=== PATIENT | female | born 1965 | race Caucasian/White ===

== ENCOUNTER 2021-06-02 09:49 | Outpatient (REF) | payer OTHER, SELFPAY ==
[2021-06-02 13:53] LABS: MANUAL DIFF FLAG NO
[2021-06-02 13:59] LABS: Basophils Absolute Auto 0.1 X10*3/uL (0.0-0.2); Basophils Percent Auto 0.9 % (0-2); Eosinophils Absolute Auto 0.2 X10*3/uL (0.0-0.4); Eosinophils Percent Auto 3.2 % (0-4); Hematocrit 46.5 % (37.0-47.0); Hemoglobin 14.8 g/dl (12.0-16.0); Imm Gran Abs Auto 0.03 X10*3/uL (0.00-0.03); Imm Gran Pct Auto 0.4 % (0.0-0.4); Lymphocytes Absolute Auto 2.2 X10*3/uL (1.2-4.9); Lymphocytes Percent Auto 29.3 % (20-40); Mean Corpuscular HGB Conc 31.8 g/dl (31.0-35.0); Mean Corpuscular Hemoglobin 28.4 pg (27.0-33.0); Mean Corpuscular Volume 89.1 fL (80.0-98.0); Mean Platelet Volume 9.7 fL (9.4-12.3); Monocytes Absolute Auto 0.5 X10*3/uL (0.1-1.2); Monocytes Percent Auto 7.2 % (2-11); Neutrophils Absolute Auto 4.4 x10*3/uL (2.0-8.3); Platelet Count 321 X10*3/uL (160-400); Red Blood Count 5.22 X10*6/uL (4.20-5.50); Red Cell Distribution Width 13.1 % (11.0-16.0); White Blood Count 7.5 X10*3/uL (4.8-10.8)
[2021-06-02 14:02] LABS: Appearance Urine HAZY; Color Urine YELLOW; Glucose Urine UA NEG (NEG); Leukocyte Esterase Urine 1+ (NEG); Nitrite Urine NEG (NEG); PH 5.5 (5.0-8.0); Specific Gravity - Urine >= 1.030 (1.005-1.025); UACC Culture Trigger YES; Urine Blood 1+ (NEG); Urine Ketones 5 MG/DL (NEG); Urine Protein NEG (NEG-TRACE)
[2021-06-02 14:25] LABS: Alanine Aminotransferase 73 U/L (0-31); Albumin Level 4.4 g/dL (3.5-5.0); Alkaline Phosphatase 74 U/L (39-117); Anion Gap 13 (12-20); Aspartate Amino Transferase 67 U/L (5-31); Bilirubin Total 0.7 mg/dL (0.0-1.0); Blood Urea Nitrogen 13 mg/dL (9-16); Calcium 9.7 mg/dL (8.4-10.2); Carbon Dioxide 27 mmol/L (22-29); Chloride 105 mmol/L (96-108); Cholesterol 232 mg/dL; Estimated Glomerular Filt Rate > 60; Glucose Fasting 88 mg/dL (60-99); HDL Cholesterol 44 mg/dL; LDL Cholesterol Calculated 162 mg/dl; Potassium 4.9 mmol/L (3.3-5.1); Sodium 140 mmol/L (135-145); Total Protein 7.7 g/dL (6.5-8.0); Triglycerides 133 mg/dL
[2021-06-02 14:27] LABS: Bacteria Urine 1+ /LPF; Squamous Epithelial Cell Urine 1+ /LPF
[2021-06-02 14:47] LABS: Free T4 (Free Thyroxine) 0.71 ng/dL (0.71-1.85); Thyroid Stimulating Hormone 22.17 uIU/mL (0.32-4.0); Vitamin D 25-OH Total 11.8 ng/mL (>30)
== END 2021-06-02 09:50 | disposition home or self-care (01) ==
LOC: HO.10HDL 09:49
PROVIDERS: Visit Provider Internal Medicine
DX: I10 Essential (primary) hypertension (principal); E78.00 Pure hypercholesterolemia, unspecified; E03.9 Hypothyroidism, unspecified; E55.9 Vitamin D deficiency, unspecified
CPT/HCPCS: 36415; 80053; 80061; 81001; 81003; 82306; 84439; 84443; 85025; 87086

== ENCOUNTER 2021-07-14 14:20 | Outpatient (REF) | payer OTHER, SELFPAY ==
--- NOTE | ~2021-07-14 | US_ITS ---
EXAMINATION: US VENOUS ULTRASOUND WITH DOPPLER LOWER EXTREMITY, RIGHT CLINICAL INFORMATION: Right leg pain COMPARISON: None TECHNIQUE: Ultrasound of the deep veins is performed from the hip to the calf with compression sonography and color and pulse Doppler assessment. Spectral analysis with color-flow imaging is performed. FINDINGS: There is normal venous compression and respiratory variation and augmented flow. The visualized common femoral vein, superficial femoral vein, profunda femoral vein, popliteal vein, and the trifurcation region shows no evidence of deep venous thrombosis. There is no significant popliteal fossa cyst. No popliteal artery aneurysm. US/US venous duplex LE RT IMPRESSION: No acute DVT demonstrated in the right lower extremity.
== END 2021-07-14 14:21 | disposition home or self-care (01) ==
LOC: HO.US 14:20
PROVIDERS: PCP Internal Medicine; Visit Provider Nurse Practitioner Family
DX: M79.604 Pain in right leg (principal); M25.561 Pain in right knee
CPT/HCPCS: 93971

== ENCOUNTER 2021-09-18 07:32 | Outpatient (REF) | payer OTHER, SELFPAY ==
[2021-09-18 10:30] LABS: MANUAL DIFF FLAG NO
[2021-09-18 10:32] LABS: Basophils Absolute Auto 0.1 X10*3/uL (0.0-0.2); Basophils Percent Auto 0.9 % (0-2); Eosinophils Absolute Auto 0.4 X10*3/uL (0.0-0.4); Eosinophils Percent Auto 4.1 % (0-4); Hematocrit 43.4 % (37.0-47.0); Hemoglobin 14.3 g/dl (12.0-16.0); Imm Gran Abs Auto 0.03 X10*3/uL (0.00-0.03); Imm Gran Pct Auto 0.3 % (0.0-0.4); Lymphocytes Percent Auto 34.5 % (20-40); Mean Corpuscular HGB Conc 32.9 g/dl (31.0-35.0); Mean Corpuscular Hemoglobin 28.8 pg (27.0-33.0); Mean Corpuscular Volume 87.3 fL (80.0-98.0); Mean Platelet Volume 9.8 fL (9.4-12.3); Monocytes Absolute Auto 0.6 X10*3/uL (0.1-1.2); Monocytes Percent Auto 7.1 % (2-11); Neutrophils Absolute Auto 4.6 x10*3/uL (2.0-8.3); Neutrophils Percent Auto 53.1 % (45-73); Platelet Count 310 X10*3/uL (160-400); Red Blood Count 4.97 X10*6/uL (4.20-5.50); Red Cell Distribution Width 12.4 % (11.0-16.0); White Blood Count 8.7 X10*3/uL (4.8-10.8)
[2021-09-18 10:38] LABS: Appearance Urine HAZY; Color Urine YELLOW; Glucose Urine UA NEG (NEG); Leukocyte Esterase Urine 2+ (NEG); Nitrite Urine NEG (NEG); PH 5.5 (5.0-8.0); UACC Culture Trigger YES; Urine Blood TRACE (NEG); Urine Ketones NEG (NEG); Urine Protein NEG (NEG-TRACE)
[2021-09-18 10:44] LABS: Estimated Average Glucose 123 mg/dL; Hemoglobin A1C 150.8236 umol/L; Hemoglobin A1c % 5.9 %
[2021-09-18 10:53] LABS: Alanine Aminotransferase 37 U/L (0-31); Albumin Level 4.1 g/dL (3.5-5.0); Alkaline Phosphatase 74 U/L (39-117); Anion Gap 12 (12-20); Aspartate Amino Transferase 34 U/L (5-31); Bilirubin Total 0.5 mg/dL (0.0-1.0); Blood Urea Nitrogen 8 mg/dL (9-16); Calcium 9.7 mg/dL (8.4-10.2); Carbon Dioxide 28 mmol/L (22-29); Chloride 104 mmol/L (96-108); Cholesterol 237 mg/dL; Estimated Glomerular Filt Rate > 60; Glucose Fasting 93 mg/dL (60-99); HDL Cholesterol 42 mg/dL; LDL Cholesterol Calculated 168 mg/dl; Potassium 4.7 mmol/L (3.3-5.1); Sodium 139 mmol/L (135-145); Total Protein 7.2 g/dL (6.5-8.0); Triglycerides 136 mg/dL
[2021-09-18 11:03] LABS: Thyroid Stimulating Hormone 0.06 uIU/mL (0.32-4.0)
[2021-09-18 11:06] LABS: WBC Urine 30-49 /HPF (0-4)
[2021-09-18 11:07] LABS: Bacteria Urine 1+ /LPF; Squamous Epithelial Cell Urine 1+ /LPF
[2021-09-18 11:09] LABS: Renal Epithelial Cells Urine TRACE /LPF
== END 2021-09-18 07:33 | disposition home or self-care (01) ==
LOC: HO.10HDL 07:32
PROVIDERS: Visit Provider Internal Medicine
DX: E11.9 Type 2 diabetes mellitus without complications (principal); E55.9 Vitamin D deficiency, unspecified; I10 Essential (primary) hypertension; E03.9 Hypothyroidism, unspecified; E78.00 Pure hypercholesterolemia, unspecified
CPT/HCPCS: 36415; 80053; 80061; 81001; 82306; 83036; 84443; 85025; 87086

== ENCOUNTER 2022-02-08 08:22 | Outpatient (REF) | payer OTHER, SELFPAY ==
--- NOTE | ~2022-02-08 | MM_ITS ---
EXAMINATION: MM SCREENING DIGITAL BREAST TOMOSYNTHESIS, BILATERAL CLINICAL INFORMATION: Screening. Asymptomatic. The lifetime risk of breast cancer based on the Tyrer-Cuzick Model is 10%. COMPARISON: Mammography: 03/22/2017, 07/25/2011 TECHNIQUE: Digital breast tomosynthesis is performed in both the craniocaudal and mediolateral oblique views along with computer-aided detection (CAD). Synthesized 2D images are generated from the tomosynthesis. FINDINGS: The breasts are heterogeneously dense, which may obscure small masses (ACR BI-RADS breast composition Category c). Right breast parenchymal pattern is similar to prior studies. No architectural abnormality or mass or abnormal calcifications. The bilateral axilla and skin contours are unremarkable. Left breast has oval asymmetric density mid inner quadrant on CC view mid depth on tomography. No MLO correlate. No architectural abnormality. Left breast also has 2 new groups of probable benign calcifications, one mid 3:00 with circumferential arrangement and the other central 6:00 mid depth tightly grouped and likely coarse. Other calcifications scattered central outer left breast are stable. Patient will be recalled for additional imaging on the left. MM/MM tomosynthesis screening BI IMPRESSION: Left: -Oval asymmetric density mid inner quadrant. -2 groups of probable benign calcifications mid 3:00 and central mid 6:00. Right: -No mammographic evidence of malignancy. ASSESSMENT: BI-RADS 0: Incomplete - Need Additional Imaging Evaluation RECOMMENDATION: 1. Additional views of the left breast (3D spot CC; Mag CC; Mag ML). 2. Targeted ultrasound if warranted after review of the additional views. 3. Radiology department staff will contact the patient for additional imaging. This patient's information was entered into a reminder system with a target due date for their next mammogram.
== END 2022-02-08 08:23 | disposition home or self-care (01) ==
LOC: HO.MAMMO 08:22
PROVIDERS: PCP Internal Medicine; Visit Provider Internal Medicine
DX: Z12.31 Encounter for screening mammogram for malignant neoplasm of breast (principal)
CPT/HCPCS: 77063; 77067

== ENCOUNTER 2022-02-13 08:13 | Outpatient (REF) | payer SELFPAY ==
--- NOTE | ~2022-02-13 | MM_ITS ---
EXAMINATION: MM DIAGNOSTIC DIGITAL BREAST TOMOSYNTHESIS, LEFT US DIAGNOSTIC ULTRASOUND BREAST, LEFT CLINICAL INFORMATION: Recall from screening for new groups of calcifications left breast 3:00 and 6:00 and question of oval asymmetric density medial breast on one view. TC score 10%. COMPARISON: Mammography: 02/08/2022, 03/22/2017, 07/25/2011, 06/06/2009 TECHNIQUE: Digital breast tomosynthesis is performed. 2D images are generated from the tomosynthesis. The following views are obtained: Spot CC, magnification CC x2, magnification ML x3. Ultrasound left breast is targeted to the inner quadrants. Grayscale imaging and color Doppler are performed without and with harmonics. FINDINGS: The breasts are heterogeneously dense, which may obscure small masses (ACR BI-RADS breast composition Category c). Finding calcifications: Additional magnification views left breast demonstrate grouped heterogeneous calcifications mid 4:00 position over 10 in number which vary in size and shape. These are new from prior studies and stereotactic sampling is recommended. There are additional calcifications 1.8 cm more posterior to the site which appear increased from prior exam and loosely grouped. Tissue sampling of this area is also suggested. Other calcifications retroareolar and anterior 6:00 position are very tightly grouped very fine and appear benign. These may be followed with mammography in 6 months. Finding asymmetry: Additional spot view shows oval asymmetry mid medial breast with mixed fibroglandular and fatty attenuation. In retrospect, this area appears similar to remote left CC views dating back to 2009. Ultrasound medial left breast shows no cystic or solid mass or architectural abnormality. Management: Results are discussed with the patient at time of visit. Patient is in agreement for stereotactic sampling left breast calcifications mid lower outer quadrant, 2 sites. MM/MM tomosynthesis added views L IMPRESSION: -Calcifications mid lower outer left breast, 2 sites for tissue sampling under stereotactic guidance. -Calcifications retroareolar and anterior 6:00 left breast appear probably benign. -Fibroglandular densities medial left breast similar to prior studies. ASSESSMENT: BI-RADS 4: Suspicious RECOMMENDATION: -Stereotactic sampling mid outer left breast, 2 sites. -Probable benign calcifications retroareolar and anterior 6:00 may be reassessed in 6 months. This patient's information was entered into a reminder system with a target due date for their next mammogram.
== END 2022-02-13 08:14 | disposition home or self-care (01) ==
LOC: HO.MAMMO 08:13
PROVIDERS: PCP Internal Medicine; Visit Provider Internal Medicine
DX: R92.1 Mammographic calcification found on diagnostic imaging of breast (principal); N64.89 Other specified disorders of breast
CPT/HCPCS: 76642; 77061; 77065

== ENCOUNTER 2022-02-15 07:21 | Outpatient (REF) | payer OTHER, SELFPAY ==
--- NOTE | ~2022-02-15 | MM_ITS ---
EXAMINATION: STEREOTACTIC TOMOSYNTHESIS-GUIDED VACUUM-ASSISTED BREAST BIOPSY (TWO SITES), LEFT SPECIMEN RADIOGRAPHS (TWO SPECIMENS), LEFT POST PROCEDURE DIGITAL MAMMOGRAM, LEFT CLINICAL INFORMATION: Grouped heterogeneous calcifications mid lower outer left breast for tissue sampling. Additional faint calcifications different appearance slightly more posterior for additional sampling. Other calcifications left breast, probably benign for routine 6-month follow-up. COMPARISON: Mammography 02/08/2022, 02/13/2022. TECHNIQUE/PROCEDURE: Informed consent was obtained from the patient after discussion of the benefits, risks, and alternatives to biopsy today. Patient appeared to understand. Gave opportunity for questions. Patient signed consent form. Specimen A: BIOPSY TABLE: Hologic [employer] Prone Biopsy System. LESION: Grouped heterogeneous calcifications mid lower outer quadrant. LOCAL ANESTHESIA: 10 mL 1% lidocaine; 10 mL 2% lidocaine with epinephrine. DERMATOTOMY: Single skin lyssa dermatotomy performed. NEEDLE: Suros Eviva 9-gauge vacuum assisted core biopsy device. APPROACH: Caudal cranial. TARGETING: Combination of digital breast tomosynthesis and stereotactic digital mammography used for targeting. CORES: 8. CLIP: [employer] SecurMark T-shaped marker. SPECIMEN RADIOGRAPH (A): Specimen radiograph is taken in separate room using digital mammography. The index calcifications are in the excised cores. There are over 20 calcifications in the cores. Specimen B: Fresh biopsy supplies are used for 2nd biopsy site. BIOPSY TABLE: Hologic Affirm Prone Biopsy System. LESION: Faint calcifications mid lower outer quadrant. LOCAL ANESTHESIA: 10 mL 1% lidocaine; 16 mL 2% lidocaine with epinephrine. DERMATOTOMY: Single skin lyssa dermatotomy performed. NEEDLE: Suros Eviva 9-gauge vacuum assisted core biopsy device. APPROACH: Caudal cranial. TARGETING: Stereotactic digital mammography used for targeting. CORES: 14. CLIP: Suros SecurMark Cylinder-shaped marker. SPECIMEN RADIOGRAPH (B): Specimen radiograph in 2 views is taken in separate room using digital mammography. There are questionably a few scant faint calcifications with narrow window. No clearly discerned calcifications. POST PROCEDURE UNILATERAL DIGITAL MAMMOGRAM, LEFT: The post biopsy mammogram is performed in separate room using separate digital mammography equipment from the biopsy procedure. CC and ML views are obtained. The breasts are heterogeneously dense, which may obscure small masses (breast composition category: c). Both clip markers are in expected position. The calcifications are markedly decreased at both biopsy sites. No gross hematoma. The patient tolerated the procedure well. No immediate complications. Home instructions reviewed with the patient. Final pathology results are pending. MM/MM stereotactic biopsy ea add IMPRESSION: 1. Digital tomosynthesis-guided core biopsy left breast 2 sites, each with clip placements. 2. Specimen radiograph taken and post procedure mammogram. There is satisfactory positioning of the biopsy clips. 3. Final pathology results pending. An addendum report will be issued.
[2022-02-15] MEDS: Lidocaine HCl 1 % 20 ML VIAL 28 ML SUBCUT (10:04)
[2022-02-15] MEDS: Sodium Bicarbonate 8.4% 50 MEQ/50 ML VIAL SUBCUT (10:05)
== END 2022-02-15 07:22 | disposition home or self-care (01) ==
LOC: HO.MAMMO 07:21
PROVIDERS: PCP Internal Medicine; Visit Provider Surgery
DX: R92.8 Other abnormal and inconclusive findings on diagnostic imaging of breast (principal)
CPT/HCPCS: 19081; 19082; 88305; 88341; 88342; 88360; A4648

== ENCOUNTER 2022-02-23 07:30 | Outpatient (REF) | payer OTHER, SELFPAY ==
--- NOTE | ~2022-02-23 | MM_ITS ---
EXAMINATION: STEREOTACTIC TOMOSYNTHESIS-GUIDED VACUUM-ASSISTED BREAST BIOPSY, LEFT SPECIMEN RADIOGRAPH, LEFT POST PROCEDURE DIGITAL MAMMOGRAM, LEFT CLINICAL INFORMATION: Biopsy of the third grouping of calcifications left breast positive intraductal carcinoma in situ within 2 other locations recently biopsied on 02/15/2022. COMPARISON: 02/15/2022 and studies dating back to 07/25/2011. TECHNIQUE/PROCEDURE: Informed consent was obtained from the patient after discussion of the benefits, risks, and alternatives to biopsy today. Patient appeared to understand. Gave opportunity for questions. Patient signed consent form. BIOPSY TABLE: [employer] Prone Biopsy System. LESION: Calcifications inferior aspect of the left breast . LOCAL ANESTHESIA: 8 mL 1% lidocaine; 20 mL 1% lidocaine with epinephrine. DERMATOTOMY: Single skin lyssa dermatotomy performed. NEEDLE: Xiaomiiva 9-gauge vacuum assisted core biopsy device. APPROACH: caudal cranial. TARGETIN-D cici. CORES: 13. CLIP: Moki - formerly [employer] SecurMark Cylinder-shaped marker. SPECIMEN RADIOGRAPH: Specimen radiograph is taken in separate room using digital mammography. The index calcifications are in the excised cores. POST PROCEDURE UNILATERAL DIGITAL MAMMOGRAM: The post biopsy mammogram is performed in separate room using separate digital mammography equipment from the biopsy procedure. 2 views are obtained. The breasts are heterogeneously dense, which may obscure small masses (breast composition category: c). The clip marker is in position. There is another cylinder marking clip present from previous biopsy about the lateral aspect of the left breast with cylinder clip from today's study being more inferior in position at approximately 6 o'clock. The calcifications are markedly decreased at the biopsy site. No gross hematoma. The patient tolerated the procedure well. No immediate complications. Home instructions reviewed with the patient. Final pathology results are pending. MM/MM stereotactic biopsy LT IMPRESSION: 1. Digital tomosynthesis-guided core biopsy left breast with clip placement. 2. Specimen radiograph taken and post procedure mammogram. There is satisfactory positioning of the biopsy clip. 3. Final pathology results pending. An addendum report will be issued.
[2022-02-23] MEDS: Lidocaine HCl 1 % 20 ML VIAL 10 ML SUBCUT (08:57)
[2022-02-23] MEDS: Sodium Bicarbonate 8.4% 50 MEQ/50 ML VIAL SUBCUT (08:58)
== END 2022-02-23 07:31 | disposition home or self-care (01) ==
LOC: HO.MAMMO 07:30
PROVIDERS: PCP Internal Medicine; Visit Provider Surgery
DX: D05.12 Intraductal carcinoma in situ of left breast (principal)
CPT/HCPCS: 19081; 88305; A4648

== ENCOUNTER 2022-03-14 06:15 | Day surgery (SDC) | payer OTHER, SELFPAY ==
[2022-03-08 15:04] VITALS: BMI 38.9
--- NOTE | 2022-03-13 09:04 | HO.ANESPROP2 ---
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) Impaired fasting glucose (Acute) Vitamin D deficiency (Acute) Obesity (BMI 30-39.9) (Acute) Elevated LFTs (Acute) Pure hypercholesterolemia (Acute) Acquired hypothyroidism (Acute) Past Medical History Medical History Acquired hypothyroidism Elevated LFTs Impaired fasting glucose Obesity (BMI 30-39.9) Pure hypercholesterolemia Vitamin D deficiency Family History Family History Father Heart disease Hypertension Hyperlipidemia Mother Hyperlipidemia Hypothyroidism Diabetes Son Down's syndrome Maternal Aunt Leukemia Maternal Aunt Brain tumor Maternal Uncle Jaw cancer Lung cancer Maternal Aunt Lung cancer Maternal Grandfather Brain cancer Surgical History Surgical History H/O colonoscopy History of incisional hernia repair History of laparoscopic appendectomy History of laparoscopic cholecystectomy (~05/18/19) Social History Social History Housing: House Alcohol intake: current Alcohol intake frequency: does not drink Patient Tobacco Use Status: Never used Tobacco e-Cigarette/Vaping Use: Never Used Second Hand Smoke Exposure: Yes service: No Current occupational status: unemployed Cognitive needs: No Hearing needs: No Vision needs: No Meds Allergies Allergy/AdvReac Type Severity Reaction Status Date / Time No Known Drug Allergies Allergy Unknown Unknown Verified 03/22/22 09:05 Exam Exam Date and Time: March 13, 2022 0904 Height,Weight and Vital Signs: Height 5 ft 1 in Weight 93.44 kg Pertinent Lab Results Pertinent Lab Results: Laboratory Tests 09/18/21 09/18/21 07:34 07:34 WBC 8.7 Hgb 14.3 Hct 43.4 Plt Count 310 Sodium 139 Potassium 4.7 Chloride 104 Carbon Dioxide 28 BUN 8 L Creatinine 0.81 Assessment and Plan Assessment Anesthesia Assessment: Chart Reviewed
[2022-03-14] VITALS (11 sets, daily range): BP systolic 121–160; BP diastolic 59–80; PULSE 55–70; RESP 12–17; TEMP 36.1–36.4; O2SAT 92–99
--- NOTE | ~2022-03-14 | MM_ITS ---
EXAMINATION: MM MAMMOGRAM GUIDED NEEDLE LOCALIZATION BREAST, LEFT X3 MM NEEDLE LOCALIZATION SPECIMEN FROM THE LEFT BREAST CLINICAL INFORMATION: DCIS left breast COMPARISON: February 23, 2022 and studies dating back to March 22, 2017 TECHNIQUE NEEDLE LOC: Proper informed consent is obtained from the patient after discussion of the procedure, potential risks and complications, and alternatives including declining the procedure today. Patient was given an opportunity for questions. The patient appeared to understand. The patient consented to the procedure and signed the consent form. GUIDANCE: Digital mammography. APPROACH: Lateral. TARGET: 3 different clips within the left breast. ANESTHESIA: lidocaine 1%: 6 mL. LOCALIZATION MARKER: [place] MammaLok. X3 The skin is prepped and local anesthesia administered. The 3 needles were positioned and position assessed with mammography. The wires were hooked into position. [place] needle protector placed. The patient tolerated the procedure well and had no immediate complication. TECHNIQUE SPECIMEN RADIOGRAPH: Imaging of the excised specimen is performed using digital mammography in 4 views. FINDINGS SPECIMEN RADIOGRAPH: The specimen shows the needles and hookwires are delivered intact. The biopsy clip marker and index calcifications are identified in the specimen. Results were called to Dr. Emre Pittman in the operating room at the time of imaging. MM/MM needle loc LT IMPRESSION: 1. Status post left breast needle localization x3 with wires hooked into position. 2. Post operative specimen radiographs obtained.
--- NOTE | ~2022-03-14 | MM_ITS ---
EXAMINATION: MM MAMMOGRAM GUIDED NEEDLE LOCALIZATION BREAST, LEFT X3 MM NEEDLE LOCALIZATION SPECIMEN FROM THE LEFT BREAST CLINICAL INFORMATION: DCIS left breast COMPARISON: February 23, 2022 and studies dating back to March 22, 2017 TECHNIQUE NEEDLE LOC: Proper informed consent is obtained from the patient after discussion of the procedure, potential risks and complications, and alternatives including declining the procedure today. Patient was given an opportunity for questions. The patient appeared to understand. The patient consented to the procedure and signed the consent form. GUIDANCE: Digital mammography. APPROACH: Lateral. TARGET: 3 different clips within the left breast. ANESTHESIA: lidocaine 1%: 6 mL. LOCALIZATION MARKER: [place] [employer]amma[employer]. X3 The skin is prepped and local anesthesia administered. The 3 needles were positioned and position assessed with mammography. The wires were hooked into position. [place] needle protector placed. The patient tolerated the procedure well and had no immediate complication. TECHNIQUE SPECIMEN RADIOGRAPH: Imaging of the excised specimen is performed using digital mammography in 4 views. FINDINGS SPECIMEN RADIOGRAPH: The specimen shows the needles and hookwires are delivered intact. The biopsy clip marker and index calcifications are identified in the specimen. Results were called to Dr. Emre Pittman in the operating room at the time of imaging. MM/MM needle loc ea add IMPRESSION: 1. Status post left breast needle localization x3 with wires hooked into position. 2. Post operative specimen radiographs obtained.
[2022-03-14] MEDS: Lactated Ringers 1,000 ML 100 ML IVCONT (07:33)
--- NOTE | 2022-03-14 10:00 | HO.ANESPROP2 ---
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) Impaired fasting glucose (Acute) Vitamin D deficiency (Acute) Obesity (BMI 30-39.9) (Acute) Elevated LFTs (Acute) Pure hypercholesterolemia (Acute) Acquired hypothyroidism (Acute) Past Medical History Medical History Acquired hypothyroidism Elevated LFTs Impaired fasting glucose Obesity (BMI 30-39.9) Pure hypercholesterolemia Vitamin D deficiency Family History Family History Father Heart disease Hypertension Hyperlipidemia Mother Hyperlipidemia Hypothyroidism Diabetes Son Down's syndrome Maternal Aunt Leukemia Maternal Aunt Brain tumor Maternal Uncle Jaw cancer Lung cancer Maternal Aunt Lung cancer Maternal Grandfather Brain cancer Family history of problems with anesthesia: No Surgical History Surgical History (Updated 03/08/22 @ 14:56 by Lorraine Hansen RN) H/O colonoscopy History of incisional hernia repair History of laparoscopic appendectomy History of laparoscopic cholecystectomy (~05/18/19) History of Problems with Anesthesia: No Social History Social History Housing: House Alcohol intake: current Alcohol intake frequency: does not drink Patient Tobacco Use Status: Never used Tobacco e-Cigarette/Vaping Use: Never Used Second Hand Smoke Exposure: Yes Use of substances other than those prescribed or required for medical reasons: No Are you DNR?: No Advance Directives: No Advance Directives Information Provided: Yes service: No Current occupational status: unemployed Cognitive needs: No Hearing needs: No Vision needs: No Meds Allergies Allergy/AdvReac Type Severity Reaction Status Date / Time No Known Drug Allergies Allergy Unknown Unknown Verified 03/01/22 10:17 Active Medications: Current Medications Lactated Ringer's (Lr) 1,000 mls @ 100 mls/hr IVCONT .Q10H SHAHEEN Last Admin: 03/14/22 07:33 Dose: 100 mls/hr Exam Exam Date and Time: March 14, 2022 1000 Height,Weight and Vital Signs: Height 5 ft 1 in Weight 93.44 kg Last Vital Signs Temp 97.5 F 03/14/22 07:21 Pulse 55 03/14/22 07:21 Resp 16 03/14/22 07:21 BP 146/59 H 03/14/22 07:21 Pulse Ox 99 03/14/22 07:21 O2 Del Method 03/14/22 07:21 Airway Mallampati Class: III TM Dist: >3cm Neck ROM: Full Assessment and Plan Assessment Anesthesia Assessment: Anesthesia Plan Discussed and Chart Reviewed Final Anesthetic Review Family History of Problems with Anesthesia: No History of Problems with Anesthesia: No NPO: Yes ASA Class: III Final Preanesthetic Review: No Changes in Pt Med Stat, Meds/Allgs Chart Reviewed, Consent Obtained/Reviewed and Anes Risks/Benef Reviewed Patient Risk: Intermediate Procedure Risk: Low Anesthetic Plan Anesthetic Plan: GA Disposition: Standard PACU
[2022-03-14] MEDS: Lidocaine HCl 1 % 20 ML VIAL 10 ML SUBCUT (10:33)
[2022-03-14] MEDS: Sodium Bicarbonate 8.4% 50 MEQ/50 ML VIAL SUBCUT (10:35)
--- NOTE | 2022-03-14 12:28 | W.PM.OPN ---
Operative Note Operative Note Date of Service: 03/14/22 Narrative: Preoperative diagnosis: ductal carcinoma in situ left breast, atypical ductal hyperplasia left breast Postoperative diagnosis: same Procedure: left breast lumpectomy with needle localization x3 Surgeon: Emre Pittman MD Delivery Table Operator: Gracy Gallardo PA-C, KAVIN Castro Anesthesia: general LMA Indications for procedure: 56-year-old female patient presenting with a recent screening mammogram which revealed 2 areas of clustered calcifications felt to be high suspicion for malignancy. A 2nd area of low suspicion was also identified. Stereotactic guided core biopsy of the initial 2 lesions revealed ductal carcinoma in situ. Subsequent core biopsy of the remaining cluster also revealed atypical ductal hyperplasia. She presents today for left breast lumpectomy with needle localization x3. Operative findings: Initial excision of medial lesion revealed no marking clip in specimen. Further excision of the lateral margin did reveal a marking clip within the specimen. Excision of the call to lesions also revealed no marking clip there for wider excision of the lateral margin also produce 2 additional working clips. Specimen: Left breast lumpectomy with 4 specimens. Estimated blood loss: 10 cc Complications: none Procedure details: patient was brought to the OR placed in a supine position. After administering general anesthesia patient's left breast was prepped with ChloraPrep and draped in a sterile fashion. A surgical time-out was called the consent confirmed. Patient received preoperative antibiotics and Venodyne boots were in place. Local anesthesia consisting of 0.5% Sensorcaine with epinephrine was then infiltrated in a circumareolar location going from 9:00 to 5:00. Incision was carried out through subcutaneous tissue. Superior inferior skin flaps were then created using electrocautery. Starting at the medial lesion dissection was continued from the medial portion of the needle tip using electrocautery. The needle tip was grasped with a hemostat and dissection continued superiorly and inferiorly. Section was then continued posterior to the needle and continued up along the shaft in the needle. Needle was then cut with a wire wrapper machine operator and the specimen removed. Attention was then directed to the L2 needles which were in the lower outer quadrant. These were grasped with an Allis clamp and electrocautery used to dissect circumferentially around the localizing needle. The 2 needles removed at the same time dissecting inferiorly superiorly posterior and then anterior. Once again the needle was cut using a wire wrapper machine operator. Additional specimens were obtained from the lateral margins of both the 1st and 2nd biopsy site using electrocautery to excise remaining ductal tissue up to the skin edge. These were sent as specimen 3 and 4. Hemostasis was assured using electrocautery. Wounds were irrigated with saline solution and suctioned dry. Once confirmation was received regarding the marking clips in the specimen the biopsy cavity was marked with hemoclips. Deep breast tissue was reapproximated using interrupted 3-0 Polysorb sutures. Superficial breast tissue was reapproximated using interrupted 3-0 Polysorb sutures. Dermis was closed using interrupted 3-0 Polysorb sutures. Skin was closed using a running subcuticular 4-0 Polysorb suture. Steri-Strips, 2 x 2 gauze and Tegaderm were then applied. The patient tolerated the procedure well. Sponge, instrument, needle counts reported as correct. The patient was transferred to PACU in stable condition.
[2022-03-14] MEDS: oxyCODONE HCl Immed Release 5 MG TABLET PO (14:08)
== END 2022-03-14 15:30 | disposition home or self-care (01) ==
PROVIDERS: PCP Internal Medicine; Visit Provider Surgery
PROC: (CPT 19301; principal; 2022-03-14 09:00)
DX: D05.12 Intraductal carcinoma in situ of left breast (principal); Z17.0 Estrogen receptor positive status [ER+]; N60.92 Unspecified benign mammary dysplasia of left breast; E03.9 Hypothyroidism, unspecified; R79.89 Other specified abnormal findings of blood chemistry; R73.01 Impaired fasting glucose; E22.9 Hyperfunction of pituitary gland, unspecified; E78.00 Pure hypercholesterolemia, unspecified; E66.9 Obesity, unspecified; Z68.38 Body mass index [BMI] 38.0-38.9, adult; Z79.899 Other long term (current) drug therapy; Z90.49 Acquired absence of other specified parts of digestive tract
CPT/HCPCS: 19301; 19281; 19282; 88307; 88341; 88342; 88360; A4648; J0690; J1100; J2250; J2405; J2795; J3010

== ENCOUNTER 2022-04-03 07:43 | Outpatient (REF) | payer OTHER, SELFPAY ==
--- NOTE | ~2022-04-03 | MM_ITS ---
EXAMINATION: BONE DENSITOMETRY CLINICAL INDICATION: Osteopenia. COMPARISON: None (current study represents initial baseline exam). TECHNIQUE: Using a [employer] DXA System (software version: 13.1) manufactured by [employer], dual-energy x-ray absorptiometry was performed of the lumbar spine and left hip. The images are of good technical quality. Summary results are attached. FINDINGS: AP SPINE L1-L4: BMD 1.332 g/cm2, Z-score 1.3, T-score 1.3, normal. LEFT FEMUR, NECK: BMD 0.855 g/cm2, Z-score -0.8, T-score -1.3, osteopenia. LEFT FEMUR, TOTAL: BMD 1.034 g/cm2, Z-score 0.3, T-score 0.2, normal. IDENTIFIED RISK FACTORS: Menopause. HISTORY OF FRACTURE: None listed. MEDICATIONS: Vitamin D. MM/XR DEXA axial skeleton IMPRESSION: 1. DIAGNOSIS: Osteopenia based on the lowest T-score value of -1.3 in the femoral neck applying World Health Organization criteria. 2. 10-YEAR FRACTURE RISK PREDICTION, FRAX: Major osteoporotic fracture (clinical spine, forearm, hip or shoulder) 6.4%. Hip fracture 0.4%. 3. Treatment Recommendations: NOF guidelines recommend consideration for treatment in postmenopausal women and men age 50 and older presenting with the following: -A hip or vertebral (clinical or morphometric) fracture. -T-score less than or equal to -2.5 at the femoral neck or spine after appropriate evaluation to exclude secondary causes. -Low bone mass at the hip or spine and a 10-year fracture probability by FRAX of greater than or equal to 3% for hip fracture or greater than or equal to 20% for major osteoporotic fracture based on the [place] adapted WHO algorithm. 4. Other Recommendations: All treatment decisions require clinical judgment and consideration of individual patient factors, including patient preferences, comorbidities, previous drug use, risk factors not captured in the FRAX model (e.g. frailty, falls, vitamin D deficiency, increased bone turnover, interval significant decline in bone density) and possible under or overestimation of fracture risk by FRAX. Additional medical evaluation for secondary cause of low bone mineral density may be appropriate. FUTURE SCAN RECOMMENDATION: People with diagnosed cases of osteoporosis or at high risk for fracture should have regular bone mineral density tests. For patients eligible for Medicare, routine testing is allowed once every 2 years. The testing frequency can be increased to one year for patients who have rapidly progressing disease, those who are receiving or discontinuing medical therapy to restore bone mass, or have additional risk factors.
== END 2022-04-03 07:44 | disposition home or self-care (01) ==
LOC: HO.MAMMO 07:43
PROVIDERS: PCP Internal Medicine; Visit Provider Internal Medicine Medical Oncology
DX: Z13.820 Encounter for screening for osteoporosis (principal); M85.80 Other specified disorders of bone density and structure, unspecified site; Z78.0 Asymptomatic menopausal state
CPT/HCPCS: 77080

== ENCOUNTER → 2022-04-13 09:20 | Outpatient (BNV) | payer OTHER, SELFPAY | PROVIDERS: PCP Internal Medicine; Referring Provider Surgery; Visit Provider Internal Medicine Medical Oncology | DX: D05.12 Intraductal carcinoma in situ of left breast (principal) | CPT/HCPCS: 99213 ==

== ENCOUNTER 2022-05-21 08:44 | Outpatient (REF) | payer OTHER, SELFPAY ==
[2022-05-21 11:43] LABS: Alanine Aminotransferase 30 U/L (0-31); Albumin Level 4.3 g/dL (3.5-5.0); Alkaline Phosphatase 73 U/L (39-117); Anion Gap 14 (12-20); Aspartate Amino Transferase 30 U/L (5-31); Bilirubin Total 0.9 mg/dL (0.0-1.0); Blood Urea Nitrogen 19 mg/dL (9-16); Calcium 9.3 mg/dL (8.4-10.2); Carbon Dioxide 27 mmol/L (22-29); Chloride 108 mmol/L (96-108); Cholesterol 217 mg/dL; Estimated Glomerular Filt Rate > 60; Glucose Fasting 86 mg/dL (60-99); HDL Cholesterol 40 mg/dL; LDL Cholesterol Calculated 153 mg/dl; Potassium 4.6 mmol/L (3.3-5.1); Sodium 144 mmol/L (135-145); Total Protein 7.2 g/dL (6.5-8.0); Triglycerides 121 mg/dL
[2022-05-21 12:19] LABS: Free T4 (Free Thyroxine) 1.49 ng/dL (0.71-1.85); Thyroid Stimulating Hormone 0.91 uIU/mL (0.32-4.0)
== END 2022-05-21 08:45 | disposition home or self-care (01) ==
LOC: HO.10HDL 08:44
PROVIDERS: Visit Provider Internal Medicine
DX: E78.00 Pure hypercholesterolemia, unspecified (principal); E03.9 Hypothyroidism, unspecified
CPT/HCPCS: 36415; 80053; 80061; 84439; 84443

== ENCOUNTER → 2022-08-10 09:58 | Outpatient (BNVA) | payer OTHER, SELFPAY | PROVIDERS: PCP Internal Medicine; Visit Provider Surgery | DX: Z13.89 Encounter for screening for other disorder (principal) ==

== ENCOUNTER 2022-09-18 07:34 | Outpatient (REF) | payer OTHER, SELFPAY ==
[2022-09-18 10:32] LABS: MANUAL DIFF FLAG NO
[2022-09-18 10:37] LABS: Appearance Urine Turbid; Color Urine Yellow; Glucose Urine UA Negative (Negative); Leukocyte Esterase Urine Moderate (2+) (Negative); Nitrite Urine Negative (Negative); UMIC TRIGGER UACC YES; Urine Blood Small (1+) (Negative); Urine Ketones Negative (Negative); Urine Protein Negative (Neg-Trace)
[2022-09-18 10:40] LABS: Bacteria Urine None Seen (None Seen); Hyaline Casts Urine 0-2 /LPF (0-2); Squamous Epithelial Cell Urine 0-2 /HPF (0-2); UACC Culture Trigger YES; WBC Urine 21-50 /HPF (0-5)
[2022-09-18 10:42] LABS: Basophils Absolute Auto 0.1 X10*3/uL (0.0-0.2); Eosinophils Absolute Auto 0.2 X10*3/uL (0.0-0.4); Eosinophils Percent Auto 3.1 % (0-4); Hematocrit 45.2 % (37.0-47.0); Hemoglobin 14.6 g/dl (12.0-16.0); Imm Gran Abs Auto 0.04 X10*3/uL (0.00-0.03); Imm Gran Pct Auto 0.5 % (0.0-0.4); Lymphocytes Absolute Auto 2.4 X10*3/uL (1.2-4.9); Lymphocytes Percent Auto 30.6 % (20-40); Mean Corpuscular HGB Conc 32.3 g/dl (31.0-35.0); Mean Corpuscular Hemoglobin 28.1 pg (27.0-33.0); Mean Corpuscular Volume 87.1 fL (80.0-98.0); Mean Platelet Volume 9.7 fL (9.4-12.3); Monocytes Absolute Auto 0.6 X10*3/uL (0.1-1.2); Monocytes Percent Auto 7.7 % (2-11); Neutrophils Absolute Auto 4.5 x10*3/uL (2.0-8.3); Neutrophils Percent Auto 57.1 % (45-73); Platelet Count 333 X10*3/uL (160-400); Red Blood Count 5.19 X10*6/uL (4.20-5.50); Red Cell Distribution Width 12.9 % (11.0-16.0); White Blood Count 7.8 X10*3/uL (4.8-10.8)
[2022-09-18 10:58] LABS: Estimated Average Glucose 123 mg/dL; Hemoglobin A1c % 5.9 %
[2022-09-18 12:28] LABS: Alanine Aminotransferase 24 U/L (0-31); Alkaline Phosphatase 72 U/L (39-117); Anion Gap 13 (12-20); Aspartate Amino Transferase 26 U/L (5-31); Bilirubin Total 0.7 mg/dL (0.0-1.0); Blood Urea Nitrogen 12 mg/dL (9-16); Carbon Dioxide 28 mmol/L (22-29); Chloride 107 mmol/L (96-108); Cholesterol 267 mg/dL; Estimated Glomerular Filt Rate > 60; Glucose Fasting 98 mg/dL (60-99); HDL Cholesterol 41 mg/dL; LDL Cholesterol Calculated 199 mg/dl; Potassium 5.1 mmol/L (3.3-5.1); Sodium 143 mmol/L (135-145); Thyroid Stimulating Hormone 0.53 uIU/mL (0.32-4.0); Total Protein 7.1 g/dL (6.5-8.0); Triglycerides 138 mg/dL
== END 2022-09-18 07:35 | disposition home or self-care (01) ==
LOC: HO.10HDL 07:34
PROVIDERS: Visit Provider Internal Medicine
DX: E55.9 Vitamin D deficiency, unspecified (principal); I10 Essential (primary) hypertension; R73.01 Impaired fasting glucose; E78.00 Pure hypercholesterolemia, unspecified; E03.9 Hypothyroidism, unspecified; R30.0 Dysuria
CPT/HCPCS: 36415; 80053; 80061; 81001; 82306; 83036; 84439; 84443; 85025; 87086

== ENCOUNTER → 2022-11-09 08:37 | Outpatient (BNVA) | payer OTHER, SELFPAY | PROVIDERS: PCP Internal Medicine; Visit Provider Surgery ==

== ENCOUNTER 2023-01-24 08:12 | Outpatient (REF) | payer OTHER, SELFPAY ==
[2023-01-24 10:48] LABS: MANUAL DIFF FLAG NO
[2023-01-24 10:57] LABS: Appearance Urine Clear; Basophils Absolute Auto 0.1 X10*3/uL (0.0-0.2); Basophils Percent Auto 0.9 % (0-2); Color Urine Yellow; Eosinophils Absolute Auto 0.3 X10*3/uL (0.0-0.4); Eosinophils Percent Auto 3.1 % (0-4); Glucose Urine UA Negative (Negative); Hematocrit 45.8 % (37.0-47.0); Hemoglobin 14.7 g/dl (12.0-16.0); Imm Gran Abs Auto 0.03 X10*3/uL (0.00-0.03); Imm Gran Pct Auto 0.3 % (0.0-0.4); Leukocyte Esterase Urine Moderate (2+) (Negative); Lymphocytes Absolute Auto 2.6 X10*3/uL (1.2-4.9); Lymphocytes Percent Auto 27.6 % (20-40); Mean Corpuscular HGB Conc 32.1 g/dl (31.0-35.0); Mean Corpuscular Hemoglobin 27.9 pg (27.0-33.0); Mean Corpuscular Volume 87.1 fL (80.0-98.0); Mean Platelet Volume 9.8 fL (9.4-12.3); Monocytes Absolute Auto 0.7 X10*3/uL (0.1-1.2); Monocytes Percent Auto 7.8 % (2-11); Neutrophils Absolute Auto 5.8 x10*3/uL (2.0-8.3); Neutrophils Percent Auto 60.3 % (45-73); Nitrite Urine Negative (Negative); PH 5.5 (5.0-9.0); Platelet Count 302 X10*3/uL (160-400); Red Blood Count 5.26 X10*6/uL (4.20-5.50); Red Cell Distribution Width 13.1 % (11.0-16.0); UMIC TRIGGER UACC YES; Urine Blood Small (1+) (Negative); Urine Ketones Negative (Negative); Urine Protein Negative (Neg-Trace); White Blood Count 9.5 X10*3/uL (4.8-10.8)
[2023-01-24 11:02] LABS: Bacteria Urine None Seen (None Seen); Hyaline Casts Urine 0-2 /LPF (0-2); Squamous Epithelial Cell Urine 0-2 /HPF (0-2); UACC Culture Trigger YES; WBC Urine 21-50 /HPF (0-5)
[2023-01-24 11:26] LABS: Estimated Average Glucose 123 mg/dL; Hemoglobin A1c % 5.9 % (<6.0)
[2023-01-24 11:30] LABS: Alanine Aminotransferase 19 U/L (0-31); Albumin Level 4.3 g/dL (3.5-5.0); Alkaline Phosphatase 64 U/L (39-117); Anion Gap 11 (12-20); Aspartate Amino Transferase 25 U/L (5-31); Bilirubin Total 0.9 mg/dL (0.0-1.0); Blood Urea Nitrogen 13 mg/dL (9-16); Calcium 9.8 mg/dL (8.4-10.2); Carbon Dioxide 28 mmol/L (22-29); Chloride 107 mmol/L (96-108); Cholesterol 186 mg/dL (<200); Estimated Glomerular Filt Rate > 60; Glucose Fasting 92 mg/dL (60-99); HDL Cholesterol 42 mg/dL (>40); LDL Cholesterol Calculated 111 mg/dL (<100); Potassium 4.5 mmol/L (3.3-5.1); Sodium 141 mmol/L (135-145); Total Protein 7.7 g/dL (6.5-8.0); Triglycerides 165 mg/dL (<150)
[2023-01-24 11:34] LABS: Free T4 (Free Thyroxine) 0.93 ng/dL (0.71-1.85); Thyroid Stimulating Hormone 2.77 uIU/mL (0.32-4.0); Vitamin D 25-OH Total 17.2 ng/mL (>30)
== END 2023-01-24 08:13 | disposition home or self-care (01) ==
LOC: HO.10HDL 08:12
PROVIDERS: Visit Provider Internal Medicine
DX: E55.9 Vitamin D deficiency, unspecified (principal); E03.9 Hypothyroidism, unspecified; I10 Essential (primary) hypertension; R73.01 Impaired fasting glucose; E78.00 Pure hypercholesterolemia, unspecified; R30.0 Dysuria
CPT/HCPCS: 36415; 80053; 80061; 81001; 81003; 82306; 83036; 84439; 84443; 85025; 87086

== ENCOUNTER 2023-01-28 10:09 | Outpatient (AMB) | payer OTHER, SELFPAY ==
[2023-01-28 10:10] VITALS: BP 122/78; PULSE 56; O2SAT 94; BMI 38.4
--- NOTE | 2023-01-28 10:10 | A.OFFPC_ITS ---
Vital Signs 01/28/23 10:10 Height 5 ft 1 in Weight 203 lb BMI 38.4 BP 122/78 Blood Pressure Location Lt brachial Position Sitting Pulse 56 Pulse Source Pulse Oximeter Pulse Oximetry (%) 94 Oxygen Delivery Method Room Air Intake Visit Reasons: hyperlipidemia, hypothyroidism, IFG Switchgear Repairer Required: No Accompanied by: Self / Same As Patient Allergies No Known Drug Allergies Allergy (Unknown, Verified 01/28/23 10:41) Unknown Medication List - Last Reconciled 01/28/23 by Renzo Collins MD atorvastatin 10 mg PO BEDTIME 90 days cholecalciferol (vitamin D3) 50 mcg PO DAILY 90 days denosumab (Prolia) 60 mg subcut [id number] diclofenac sodium 1% 2 grams topical QID letrozole 2.5 mg PO DAILY levothyroxine 137 mcg PO DAILY 90 days multivitamin 1 tab PO DAILY Tobacco use date assessed: 01/28/23 Dental Screening Dental Screen Date: 01/28/23 Did you have a dental visit in the last 12 months?: Yes Did you have a dental problem in the last 6 months where you did not have access to dental care?: No Was dental information given to patient?: Patient has dentist HPI hyperlipidemia, hypothyroidism, IFG HPI Details Patient comes in today for her follow up visit States that she feels okay She denies any headaches or dizziness Denies any chest pains, no SOB No nausea/vomiting, no abdominal pain No change in bowel habits noted Relates that she has been experiencing recurrent painful and swollen areas on her legs lately, especially over her left lower leg - has noticed some swollen pockets of prominent veins on her legs for a while now and states that sometimes, some of these tend to pop and would the start hurting States that she has been wearing some compression stockings lately whenever she can and they seem to help somewhat Had her follow up labs done a few days ago - to discuss her results [facility] Medical History Vertigo Impaired fasting glucose Vitamin D deficiency Obesity (BMI 30-39.9) Elevated LFTs Pure hypercholesterolemia Acquired hypothyroidism Surgical History History of lumpectomy of right breast (03/14/22) History of incisional hernia repair H/O colonoscopy History of laparoscopic appendectomy History of laparoscopic cholecystectomy (~05/18/19) Family History Father Heart disease Hypertension Hyperlipidemia Mother Hyperlipidemia Hypothyroidism Diabetes Son Down's syndrome Maternal Aunt Leukemia Maternal Aunt Brain tumor Maternal Uncle Jaw cancer Lung cancer Maternal Aunt Lung cancer Maternal Grandfather Brain cancer Social History Household Members: Spouse and Children Housing: House Are you a primary child care lead teacher to a significant other at home: No Do you presently have visiting nurse or other home services: No Alcohol intake: current Alcohol intake frequency: does not drink Patient Tobacco Use Status: Never used Tobacco e-Cigarette/Vaping Use: Never Used Second Hand Smoke Exposure: Yes service: No Current occupational status: unemployed Cognitive needs: No Hearing needs: No Vision needs: No Female Reproductive History Menstrual Age of Menarche: 14 Questionnaire PHQ-9 Over the last 2 weeks, how often have you been bothered by any of the following problems? 1. Little interest or pleasure in doing things: not at all 2. Feeling down, depressed, or hopeless: not at all 3. Trouble falling or staying asleep, or sleeping too much: not at all 4. Feeling tired or having little energy: not at all 5. Poor appetite or overeating: not at all 6. Feeling bad about yourself - or that you are a failure or have let yourself or your family down: not at all 7. Trouble concentrating on things, such as reading the newspaper or watching television: not at all 8. Moving or speaking so slowly that other people could have noticed. Or the opposite - being so fidgety or restless that you have been moving around a lot more than usual: not at all 9. Thoughts that you would be better off or of hurting yourself in some way: not at all Total score: 0 Depression Screening Interpretation: Negative 83476 - PHQ-9 Billing: Yes Source: Developed by Drs. Nathan Singer, Margot Dinh, Juan Russo and colleagues, with an educational toshia from [employer]. Thrive Questionnaire Date Thrive assessed: 01/28/23 I am a: Patient What is your living situation today?: I have a steady place to live Within the past 12 months, did the food you bought not last and you didn't have the money to get more?: Never true Within the past 12 months, did you worry whether your food would run out before you got money to buy more?: Never true Do you have trouble paying for medicines?: No Do you have trouble getting transportation to medical appointments?: No Do you have trouble paying your heating and electricity bill?: No Do you have trouble taking care of your child, family member or friend?: No Do you have trouble with day-to-day activities such as bathing, preparing meals, shopping, managing finances, etc.?: No Are you currently unemployed and looking for a job?: No Are you interested in more education?: No Please select the resources that you would like help with: None Currently or been in a relationship where the following occur: no concerns reported AUDIT C Alcohol Use Questionnaire (AUDIT-C) 1. How often do you have a drink containing alcohol?: Never 3. How often do you have six or more drinks on one occasion?: Never Total Score: 0 Score Reviewed/Action Taken: Yes PARDEEP-7 AMB Questionnaire PARDEEP-7 Date PARDEEP - 7 assessed: 01/28/23 Feeling nervous, anxious, or on edge: 0 = Not at all Not being able to stop or control worryin = Not at all Worrying too much about different things: 0 = Not at all Trouble relaxin = Not at all Being so restless that it is hard to sit still: 0 = Not at all Becoming easily annoyed or irritable: 0 = Not at all Feeling afraid as if something awful might happen: 0 = Not at all Total PARDEEP-7 score (0-4 normal; 5-9 mild; 10-14 moderate; 15-21 severe): 0 Source: Developed by Drs. Nathan Singer, Margot Dinh, Juan Russo and colleagues, with an educational toshia from [employer]. PARDEEP-7 Assessment Billing PARDEEP-7 Assessment Tool: PARDEEP-7 Assessment 55968 Review of Systems Const Denies fatigue, Denies fever(s) and Denies headache(s) ENT Denies dysphagia, Denies dizziness, Denies otalgia, Denies headache(s), Denies odynophagia and Denies sore throat Card Denies chest pain, Denies palpitations and Denies dyspnea Resp Denies cough and Denies dyspnea GI Denies abdominal pain, Denies constipation, Denies dysphagia, Denies heartburn, Denies diarrhea, Denies nausea, Denies odynophagia and Denies vomiting Denies difficulty voiding, Denies nocturia and Denies dysuria Skin/Breast Denies rash Neuro Denies dizziness and Denies headache(s) Endo Denies fatigue and Denies palpitations Sabino/Lymph Details: (+) prominent and sometimes painful veins on her lower legs, worse on the left leg Physical exam (Primary Care) Vital Signs: Last Vital Signs Pulse 56 01/28/23 10:10 BP 122/78 01/28/23 10:10 Pulse Ox 94 01/28/23 10:10 Oxygen Delivery Method Room Air 01/28/23 10:10 BMI result Body Mass Index 38.4 Tobacco/Smoking Status: Tobacco use Status Tobacco use date assessed 01/28/23 01/28/23 10:15 Patient Tobacco Use Status Never used Tobacco 01/28/23 10:15 e-Cigarette/Vaping Use Never Used 01/28/23 10:15 PHQ-9: PHQ-9 Score PHQ-9: Total score 0 01/28/23 10:15 Depression Screening Interpretation: Negative Thrive Assessment: Date of Thrive Assessment Date Thrive assessed 01/28/23 01/28/23 10:15 Currently or been in a relationship where the following occur: no concerns reported Const General: no acute distress and alert HENMT Ears: TM's normal bilaterally and EAC's normal Throat: Yes posterior oropharynx normal and Yes tonsils normal (no TP congestion) Neck Neck: Yes no lymphadenopathy and Yes supple Resp Auscultation: clear to auscultation bilaterally, no rales and no wheezes Cardio Rate: regular rate Rhythm: regular rhythm Heart sounds: no murmurs GI Palpation (GI): Soft to palpation and nontender Auscultation: normal bowel sounds Back/Spine/Pelvis Thoracic/Lumbar Spine: thoracic and lumbar spine normal to inspection Skin Rashes: no rashes Extrem Other: (+) prominent areas of varicose veins over both lower extremities; (+) tenderness on palpation noted over some prominent veins on her left leg medially, just a couple of inches below the knee joint General: Yes no clubbing, cyanosis or edema Results Reviewed Results Reviewed: Laboratory Tests 01/24/23 08:20 WBC 9.5 Hgb 14.7 Hct 45.8 Plt Count 302 Sodium 141 Potassium 4.5 Creatinine 0.95 Estimated GFR > 60 Fasting Glucose 92 Hemoglobin A1c % 5.9 Calcium 9.8 AST 25 ALT 19 Triglycerides 165 H Cholesterol 186 LDL Cholesterol, Calc 111 H HDL Cholesterol 42 25-OH Vitamin D Total 17.2 TSH 2.77 Free T4 0.93 Ur Specific [place] 1.020 Urine Protein Negative Urine Glucose (UA) Negative Urine Blood Small (1+) H Assessment and Plan Assessment & Plan (1) Pure hypercholesterolemia: Code(s): E78.00 - Pure hypercholesterolemia, unspecified Plan: Results of her labs done a few days ago reviewed and discussed with patient - advised that her lipdis have improved (dropped) significantly from previous Reinforced low cholesterol diet Continue Atorvastatin 10 mg QD - states that she is tolerating her Rx without any problems Will recheck her labs and fasting lipids in 4 months for follow up (2) Acquired hypothyroidism: Code(s): E03.9 - Hypothyroidism, unspecified Plan: Her TFTs remain normal on her recent labs Continue Levothyroxine 137 mcg QD (3) Elevated LFTs: Code(s): R79.89 - Other specified abnormal findings of blood chemistry Plan: Improved; LFTs have remained normal on her recent labs - were most likely due to her weight Will continue to monitor her LFTs regularly (4) Impaired fasting glucose: Code(s): R73.01 - Impaired fasting glucose Plan: Advised that her HgbA1c has remained borderline at 5.9% on her recent labs; she has (+) family Hx of DM (mother); FBS was again normal at 92 mg/dl Reinforced low calorie diet/exercise as tolerated Will continue to monitor her blood sugar and glycemic control closely (5) Ductal carcinoma in situ of left breast: Code(s): D05.12 - Intraductal carcinoma in situ of left breast Plan: S/P surgical excision on 03/14/2022 (Dr. Pittman); was also positive for both estrogen and progesterone receptors and will need antiestrogen therapy after completing her treatments S/P radiation Tx (completed in 05/2022) and she is now on Letrozole 2.5 mg QD Follow up with oncology as scheduled (6) Osteopenia due to cancer therapy: Code(s): M85.80 - Other specified disorders of bone density and structure, unspecified site Plan: Continue Prolia 60 mg SQ every 6 months Patient is encouraged to continue to stay active and exercise regularly and to continue on her daily oral Calcium and Vitamin D supplements (7) Vitamin D deficiency: Code(s): E55.9 - Vitamin D deficiency, unspecified Plan: Continue Vitamin D3 2000 units QD - advised that her Vitamin D level is still low on her recent labs (8) Varicose veins of bilateral lower extremities with pain: Code(s): I83.813 - Varicose veins of bilateral lower extremities with pain Plan: Will refer her to vascular surgery for further evaluation and management (9) Obesity (BMI 30-39.9): Code(s): E66.9 - Obesity, unspecified Plan: Reinforced diet/exercise as tolerated/lose weight Plan Follow up in 4 months Orders: Orders Lipid Panel 4 Months E78.00 - Pure hypercholesterolemia, unspecified UA CC w/rflx Micro + Cult 4 Months R30.0 - Dysuria Complete Blood Count Auto Diff 4 Months I10 - Essential (primary) hypertension Comprehensive [place]. Panel Fast 4 Months E78.00 - Pure hypercholesterolemia, unspecified Thyroid Stimulating Hormone 4 Months E03.9 - Hypothyroidism, unspecified Free T4 (Free Thyroxine) 4 Months E03.9 - Hypothyroidism, unspecified Vitamin D 25-OH Total 4 Months E55.9 - Vitamin D deficiency, unspecified Hemoglobin A1c 4 Months R73.01 - Impaired fasting glucose Referrals Vascular Surgery Referral I83.813 - Varicose veins of bilateral lower extremities with pain Coding Level of Care Code Est Pt Level 4 (80183) Diagnoses Pure hypercholesterolemia E78.00 Acquired hypothyroidism E03.9 Elevated LFTs R79.89 Impaired fasting glucose R73.01 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 M85.80 Vitamin D deficiency E55.9 Varicose veins of bilateral lower extremities with pain I83.813 Obesity (BMI 30-39.9) E66.9 Additional Codes PARDEEP-7 Assessment Billing - PARDEEP-7 Assessment Tool: PARDEEP-7 Assessment 48153 ([id number])
== END 2023-01-28 10:56 | disposition home or self-care (01) ==
PROVIDERS: PCP Internal Medicine; Visit Provider Internal Medicine
DX: E03.9 Hypothyroidism, unspecified (principal); E55.9 Vitamin D deficiency, unspecified; E66.9 Obesity, unspecified; Z68.38 Body mass index [BMI] 38.0-38.9, adult; E78.00 Pure hypercholesterolemia, unspecified; R79.89 Other specified abnormal findings of blood chemistry; R73.01 Impaired fasting glucose; D05.12 Intraductal carcinoma in situ of left breast; M85.80 Other specified disorders of bone density and structure, unspecified site; I83.813 Varicose veins of bilateral lower extremities with pain
CPT/HCPCS: 99214

== ENCOUNTER 2023-02-15 10:35 | Outpatient (REF) | payer OTHER, SELFPAY | END 2023-02-15 10:36 | disposition home or self-care (01) | LOC: HO.MAMMO 10:35 | PROVIDERS: PCP Internal Medicine; Visit Provider Surgery | DX: Z85.3 Personal history of malignant neoplasm of breast (principal); Z92.3 Personal history of irradiation; Z98.890 Other specified postprocedural states | CPT/HCPCS: 77062; 77066 ==

== ENCOUNTER → 2023-02-15 10:37 | Outpatient (BNV) | payer OTHER, SELFPAY | PROVIDERS: PCP Internal Medicine; Visit Provider Radiology Diagnostic Radiology | DX: R92.323 Mammographic fibroglandular density, bilateral breasts (principal) | CPT/HCPCS: 77062; 77066 ==

== ENCOUNTER 2023-03-12 09:21 | Outpatient (AMB) | payer OTHER, SELFPAY ==
--- NOTE | 2023-03-12 09:26 | A.OFFVIS_ITS ---
Intake Vital Signs 03/12/23 09:34 Height 5 ft 1 in Weight 208 lb 8 oz BMI 39.4 BP 138/69 Blood Pressure Location Lt brachial Position Sitting Pulse 66 Intake Visit Reasons: Breast exam, 3 month follow up Intake Note: Patient is seen in office for 3 month follow up visit breast exam. Patient c/o: denies any concerns regarding the breast Primary Care Physician Required: No Real Estate Transaction Coordinator: Real Estate Transaction Coordinator Present Accompanied by: Self / Same As Patient Allergies No Known Drug Allergies Allergy (Unknown, Verified 03/12/23 09:33) Unknown Medication List - Last Reconciled 03/12/23 by Emre Pittman MD atorvastatin 10 mg PO BEDTIME 90 days cholecalciferol (vitamin D3) 50 mcg PO DAILY 90 days denosumab (Prolia) 60 mg subcut [id number] diclofenac sodium 1% 2 grams topical QID letrozole 2.5 mg PO DAILY levothyroxine 137 mcg PO DAILY 90 days multivitamin 1 tab PO DAILY HPI HPI Comments History of Present Illness Details 57-year-old female patient returning for breast cancer follow-up ex amination. She was diagnosed with left breast ductal carcinoma in situ in 2 lesions found on stereotactic core biopsy on 02/15/2022 and subsequently underwent a left breast lumpectomy with needle localization x3 on 03/14/2022. Pathology confirmed DCIS x2 and atypical ductal hyperplasia in 1 lesion. Margins were 4 mm on 1 cluster of DCIS, and 1.5 mm on the 2nd cluster of DCIS. A wider excision at the time of the original biopsy placed the margins well beyond 2 mm. She was subsequently evaluated by Medical Oncology (Dr. Lewis) and letrozole recommended. She completed radiation therapy at [facility] on 06/01/2022. Mammogram dated 02/15/2023 revealed probably benign findings in the left breast (BI-RADS 3), and follow-up diagnostic mammogram is recommended in 12 months. She feels well and denies any ongoing breast symptoms. [facility] Medical History Vertigo Impaired fasting glucose Vitamin D deficiency Obesity (BMI 30-39.9) Elevated LFTs Pure hypercholesterolemia Acquired hypothyroidism Surgical History History of lumpectomy of right breast (03/14/22) History of incisional hernia repair H/O colonoscopy History of laparoscopic appendectomy History of laparoscopic cholecystectomy (~05/18/19) Family History Father Heart disease Hypertension Hyperlipidemia Mother Hyperlipidemia Hypothyroidism Diabetes Son Down's syndrome Maternal Aunt Leukemia Maternal Aunt Brain tumor Maternal Uncle Jaw cancer Lung cancer Maternal Aunt Lung cancer Maternal Grandfather Brain cancer Social History Household Members: Spouse and Children Housing: House Are you a primary critical care transport nurse to a significant other at home: No Do you presently have visiting nurse or other home services: No Alcohol intake: current Alcohol intake frequency: does not drink Patient Tobacco Use Status: Never used Tobacco e-Cigarette/Vaping Use: Never Used Second Hand Smoke Exposure: Yes service: No Current occupational status: unemployed Cognitive needs: No Hearing needs: No Vision needs: No Female Reproductive History Menstrual Age of Menarche: 14 Review of Systems Const All systems reviewed & are unremarkable except as noted in HPI and below Denies chills, Denies fever(s), Denies headache(s), Denies poor appetite and Denies weakness ENT Denies headache(s) Card Denies chest pain, Denies irregular heart rhythm, Denies palpitations and Denies dyspnea Resp Denies cough, Denies excessive phlegm production and Denies dyspnea GI Denies abdominal pain, Denies bloating, Denies change in bowel habits, Denies constipation, Denies heartburn, Denies diarrhea, Denies nausea and Denies vomiting Denies urinary frequency and Denies nipple discharge Musc Denies back pain, Denies muscle weakness and Denies numbness Skin/Breast Denies breast swelling, Reports breast skin changes, Denies breast pain, Denies breast mass, Denies change in breast shape, Denies changing lesions, Denies nipple discharge and Denies unusual bruising Neuro Denies headache(s), Denies numbness, Denies paresthesias and Denies weakness Psych Denies anxiety and Denies depression Endo Denies palpitations Sabino/Lymph Denies lymphadenopathy Physical Exam Const General: no acute distress and well developed Nutritional Appearance: well nourished Orientation/consciousness: patient oriented x3 Limitations: no limitations Chest Other: Left breast periareolar incision is clean, dry, and intact without redness or discharge. Volume loss is noted in the left breast compared to the right breast. No palpable mass, skin change, nipple discharge or enlarged lymph nodes appreciated. Right breast reveals no palpable mass, skin change, nipple discharge or enlarged lymph nodes. Resp Effort & Inspection: normal respiratory effort Neuro General: patient oriented x3 Extrem General: Yes no clubbing, cyanosis or edema Assessment & Plan Assessment & Plan (1) Ductal carcinoma in situ of left breast: Code(s): D05.12 - Intraductal carcinoma in situ of left breast Plan 57-year-old female patient found to have 2 clusters of DCIS in the left breast at the lower outer quadrant. She is status post lumpectomy needle localization. As noted above her margins were clear and adequate. She tolerated radiation therapy well and denies any ongoing breast symptoms. She started on letrozole and denies any ongoing symptoms at this time.. Examination today reveals normal postoperative changes in the left breast but no palpable mass or enlarged lymph nodes. Right breast is normal as well. I recommended she return in 6 months and diagnostic mammogram in January 2024. Coding Level of Care Code Est Pt Level 3 (09367) Diagnoses 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.12
[2023-03-12 09:34] VITALS: BP 138/69; PULSE 66; BMI 39.4
== END 2023-03-12 09:48 | disposition home or self-care (01) ==
PROVIDERS: PCP Internal Medicine; Visit Provider Surgery
DX: D05.12 Intraductal carcinoma in situ of left breast (principal)
CPT/HCPCS: 99213

== ENCOUNTER → 2023-03-12 09:21 | Outpatient (BNVA) | payer OTHER, SELFPAY | PROVIDERS: PCP Internal Medicine; Visit Provider Surgery ==

== ENCOUNTER 2023-05-14 10:20 | Outpatient (AMB) | payer OTHER, SELFPAY ==
[2023-05-14 10:25] VITALS: BMI 40.1
--- NOTE | 2023-05-14 10:25 | A.OFFVIS_ITS ---
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 Pt states she also gets tingling and swelling. Has not tried com pression socks. 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 Complaints include pain over varicosities, swelling of lower extremities, cramping, fatigue, and heaviness of the lower extremities. It has been affecting there daily activities including walking and caring for her 22-year-old daughter who has down syndrome. It is noted more so in left leg. Patient denies any previous venous surgery or injections. Patient denies any history of DVT/ PE. She does report that she does a brother with a questionable history of a DVT but she is not sure Patient denies any history of phlebitis. Trial of compression includes - [id number] They now present for vascular evaluation regarding their varicose veins. [facility] Medical History Vertigo Impaired fasting glucose Vitamin D deficiency Obesity (BMI 30-39.9) Elevated LFTs Pure hypercholesterolemia Acquired hypothyroidism Surgical History History of lumpectomy of right breast (03/14/22) History of incisional hernia repair H/O colonoscopy History of laparoscopic appendectomy History of laparoscopic cholecystectomy (~05/18/19) Family History Father Heart disease Hypertension Hyperlipidemia Mother Hyperlipidemia Hypothyroidism Diabetes Son Down's syndrome Maternal Aunt Leukemia Maternal Aunt Brain tumor Maternal Uncle Jaw cancer Lung cancer Maternal Aunt Lung cancer Maternal Grandfather Brain cancer Social History Household Members: Spouse and Children Housing: House Are you a primary resident care manager to a significant other at home: No Do you presently have visiting nurse or other home services: No Alcohol intake: current Alcohol intake frequency: does not drink Patient Tobacco Use Status: Never used Tobacco e-Cigarette/Vaping Use: Never Used Second Hand Smoke Exposure: Yes service: No Current occupational status: unemployed Cognitive needs: No Hearing needs: No Vision needs: No Female Reproductive History Menstrual Age of Menarche: 14 Review of Systems Const Reports as per HPI ENT Reports no additional complaints Card Denies chest pain, Denies chest pain at rest and Denies chest pain with activity Resp Denies chest congestion and Denies cough GI Reports no additional complaints Musc Details: pain over varicosities, aching of lower extremities, swelling, cramping, heaviness and tiredness, itching Denies abnormal gait Skin/Breast Reports pruritus and Denies wounds Neuro Reports no additional complaints and Denies abnormal gait Psych Denies no additional complaints Physical Exam Vital Signs: BMI result Body Mass Index 40.1 Const General: cooperative, healthy appearing and comfortable Orientation/consciousness: oriented to person, oriented to place and oriented to time Neck Carotids: no bruits Chest Chest palpation & inspection: normal inspection of the chest and normal palpation of entire chest wall Resp Effort & Inspection: normal respiratory effort and able to speak in complete sentences Cardio Rate: regular rate Heart sounds: S1 normal heart sound present and S2 normal heart sound present Peripheral pulses: Peripheral pulses 2+ throughout GI Inspection: Yes normal to inspection Skin Other: +2 edema, large rope-like varicosities greater than 4 mm left thigh and calf CEAP Classification C4 - skin color changes Ep - Etiology Primary As - superficial veins P - reflux General skin exam: dry skin Neuro General: oriented to person, oriented to place and oriented to time Extrem Right lower extremity: full ROM, normal capillary refill and edema Left lower extremity: full ROM, normal capillary refill and edema Psych Mental Status: mental status grossly normal Assessment & Plan Assessment & Plan (1) Varicose veins of left lower extremity with inflammation: Code(s): I83.12 - Varicose veins of left lower extremity with inflammation Plan: In short, the patient has evidence of venous insufficiency. I have discussed the pathophysiology with the patient. In addition I have provided informational material regarding venous disease to the patient. We have discussed conservative measures including compression, elevation, and exercise. I have also provided a handout regarding appropriate use of compression stockings and where to purchase good compression stockings as well. I have taken the liberty of ordering venous insufficiency testing with the patient. They will follow up with me after testing. The patient had an opportunity to ask questions regarding the treatment plan. All questions were answered. Imaging studies, laboratory studies and physical exam results were discussed and reviewed in detail. No major barriers to understanding were identified. The patient expressed understanding and agreement with the above treatment plan. The patient is aware they should contact our office by phone for worsening of the current condition or the appearance of new symptoms. Thank you for allowing me to participate in the vascular care of this patient. If you have any questions or concerns regarding the treatment for the above condition please do not hesitate to contact me. The office telephone contact is [phone]. This note is constructed using voice recognition software. While every effort has been made to ensure accuracy, knowledge architect errors may have been included. Thank you for allowing me to participate in the care of your patient. Yours sincerely, Daniel Patterson MD, FACS, R.P.V.I. Orders: Orders US venous duplex LE BI 1 Week I83.12 - Varicose veins of left lower extremity with inflammation Coding Level of Care Code New Pt Level 4 (59045) Diagnoses Varicose veins of left lower extremity with inflammation I83.12
== END 2023-05-14 10:59 | disposition home or self-care (01) ==
PROVIDERS: PCP Internal Medicine; Visit Provider Surgery Vascular Surgery
DX: I83.12 Varicose veins of left lower extremity with inflammation (principal)
CPT/HCPCS: 99203

== ENCOUNTER → 2023-05-14 10:20 | Outpatient (BNVA) | payer OTHER, SELFPAY | PROVIDERS: PCP Internal Medicine; Visit Provider Surgery Vascular Surgery ==

== ENCOUNTER 2023-05-30 08:07 | Outpatient (REF) | payer OTHER, SELFPAY ==
--- NOTE | ~2023-05-30 | US_ITS ---
EXAMINATION: US VENOUS REFLUX/INSUFFICIENCY CLINICAL INFORMATION: Varicose veins of left lower extremity without inflammation. Per discussion with Dr. Patterson the patient had recent venaseal of the right greater saphenous vein. COMPARISON: None. TECHNIQUE: Bilateral lower extremity venous insufficiency ultrasound was performed with velocity measurements. Color flow Doppler imaging was performed. FINDINGS: RIGHT SIDE: No evidence of DVT or venous reflux within the common femoral, mid femoral, or popliteal vein. GREATER SAPHENOUS VEIN: The right saphenofemoral junction measures 0.8cm. The reflux time is 0 ms. Proximal thigh measures 1cm. Reflux time is 0 ms. Mid thigh measures 0.3cm. Reflux time is 0 ms. Above-knee measures 0.3cm. Reflux time is 0 ms. There is thrombus within the abdomen the segment. The vessel measures 0.2 cm and is only partially compressible. No reflux seen. The remaining vessel beyond appears to be thrombosed and is noncompressible. There is a 0.3 cm business records manager associated with the distal thigh segment of the great saphenous vein which does not demonstrate reflux. There is a lateral accessory saphenous vein measures 0.3 cm and does not demonstrate reflux. At the mid thigh measures 0.2 cm and does not demonstrate reflux. SMALL SAPHENOUS VEIN: The saphenopopliteal junction measures 0.2 cm. Reflux time is 0 ms. The upper right small saphenous vein measures 0.2 cm. Reflux time is 0 ms.. The lower small saphenous vein measures 0.2cm. Reflux time is 0 ms. There is a 0.1 cm business records manager associated with the midcalf segment measures 0.1 cm and does not demonstrate reflux. LEFT SIDE: No evidence of DVT or venous reflux within the common femoral, mid femoral, or popliteal vein. GREATER SAPHENOUS VEIN: The left saphenofemoral junction measures 0.8cm. The reflux time is 0 ms. Proximal thigh measures 0.6cm. Reflux time is 0 ms. Mid thigh measures 0.2cm. Reflux time is 0 ms. Above-knee measures 0.2cm. Reflux time is 992 ms. At the knee measures 0.2cm. Reflux time is greater than 3100 ms. Below the knee measures 0.1cm. Reflux time is 0 ms. Mid calf measures 0.2cm. Reflux time is 1096 ms. At the level of the ankle it measures0.2cm. Reflux time is 0 ms. There is a lateral accessory saphenous vein measures 0.4 cm at the level of the saphenofemoral junction and does not demonstrate reflux. At the level of the mid thigh the vessel measures 0.2 cm and has reflux time 748 ms. There is a 0.4 cm business records manager at the level of the distal calf which does not demonstrate reflux. Several varicosities are associated with the great saphenous vein. This includes: 0.3 cm business records manager at the level of the distal thigh with reflux time greater than 3300 ms 0.2 cm business records manager at the level of the distal thigh with reflux time 1595 ms 0.4 cm varicosity at the level of the knee with reflux time greater than 3132 ms 0.3 cm varicosity at the level of the mid calf with reflux time 2044 ms. There is also a 0.3 cm varicosity at the level of the saphenofemoral junction with reflux time 2016 ms. SMALL SAPHENOUS VEIN: The saphenopopliteal junction measures 0.1 cm. Reflux time is 0 ms. The upper left small saphenous vein measures 0.1 cm. Reflux time is 0 ms. The lower small saphenous vein measures 0.1cm. Reflux time is greater than 2984 ms. There are several varicosities associated with the small saphenous vein which include: 0.2 cm varicosity at the level of the distal calf with reflux time greater than 2780 ms 0.5 cm varicosity at the level of the distal calf with reflux time greater than 2256 ms US/US venous duplex LE BI IMPRESSION: There is no evidence of deep venous thrombosis or deep venous reflux. There is occlusion of the right great saphenous vein from the level of the knee distally which would be in keeping with recent venaseal procedure No evidence of superficial venous reflux on the right. On the left there is segmental reflux within the great saphenous vein at the level of the distal thigh, at the knee, and at the mid calf. There is also segmental reflux within the mid thigh segment of a lateral accessory saphenous vein. There is segmental reflux within the distal segment of the small saphenous vein. In addition there are multiple left lower extremity varicosities which all demonstrate reflux. Findings were discussed with Dr. Patterson by Dr. Tapia by telephone at approximately 1353 hours.
== END 2023-05-30 08:08 | disposition home or self-care (01) ==
LOC: HO.US 08:07
PROVIDERS: PCP Internal Medicine; Visit Provider Surgery Vascular Surgery
DX: I83.12 Varicose veins of left lower extremity with inflammation (principal)
CPT/HCPCS: 93970

== ENCOUNTER 2023-07-09 09:37 | Outpatient (AMB) | payer OTHER, SELFPAY ==
[2023-07-09 09:44] VITALS: BMI 40.1
--- NOTE | 2023-07-09 09:44 | MHC.OFFVIS ---
Intake Vital Signs 07/09/23 09:44 Height 5 ft 1 in Weight 212 lb BMI 40.1 Intake Visit Reasons: follow up 05/30/2023 Intake Note: follow up 05/30/23, Pt states left LE is worse than the right LE. Pt states she gets aching, tingling and swelling. Pt states she has large VV over bilateral LE Accompanied by: Self / Same As Patient Allergies No Known Drug Allergies Allergy (Unknown, Verified 07/09/23 09:50) Unknown HPI follow up 05/30/2023 HPI Details Very pleasant 57-year-old female presents for follow-up regarding painful left lower extremity varicosities. Continues to be a source of pain and discomfort for her. It has been affecting her daily life including caring for a 22-year-old daughter who has down syndrome. She notes that she has significant varicosities in her left lower extremity. She now presents for follow-up with venous insufficiency testing. [facility] Medical History Vertigo Impaired fasting glucose Vitamin D deficiency Obesity (BMI 30-39.9) Elevated LFTs Pure hypercholesterolemia Acquired hypothyroidism Surgical History History of lumpectomy of right breast (03/14/22) History of incisional hernia repair H/O colonoscopy History of laparoscopic appendectomy History of laparoscopic cholecystectomy (~05/18/19) Family History Father Heart disease Hypertension Hyperlipidemia Mother Hyperlipidemia Hypothyroidism Diabetes Son Down's syndrome Maternal Aunt Leukemia Maternal Aunt Brain tumor Maternal Uncle Jaw cancer Lung cancer Maternal Aunt Lung cancer Maternal Grandfather Brain cancer Social History Household Members: Spouse and Children Housing: House Are you a primary behavioral health care manager to a significant other at home: No Do you presently have visiting nurse or other home services: No Alcohol intake: current Alcohol intake frequency: does not drink Patient Tobacco Use Status: Never used Tobacco e-Cigarette/Vaping Use: Never Used Second Hand Smoke Exposure: Yes service: No Current occupational status: unemployed Cognitive needs: No Hearing needs: No Vision needs: No Female Reproductive History Menstrual Age of Menarche: 14 Review of Systems Const Reports as per HPI ENT Reports no additional complaints Card Denies chest pain, Denies chest pain at rest and Denies chest pain with activity Resp Denies chest congestion and Denies cough GI Reports no additional complaints Musc Details: pain over varicosities, aching of lower extremities, swelling, cramping, heaviness and tiredness, itching Denies abnormal gait Skin/Breast Reports pruritus and Denies wounds Neuro Reports no additional complaints and Denies abnormal gait Psych Denies no additional complaints Physical Exam Vital Signs: BMI result Body Mass Index 40.1 Const General: cooperative, healthy appearing and comfortable Orientation/consciousness: oriented to person, oriented to place and oriented to time Neck Carotids: no bruits Chest Chest palpation & inspection: normal inspection of the chest and normal palpation of entire chest wall Resp Effort & Inspection: normal respiratory effort and able to speak in complete sentences Cardio Rate: regular rate Heart sounds: S1 normal heart sound present and S2 normal heart sound present Peripheral pulses: Peripheral pulses 2+ throughout GI Inspection: Yes normal to inspection Skin Other: +2 edema, large rope-like varicosities greater than 4 mm left thigh and calf CEAP Classification C4 - skin color changes Ep - Etiology Primary As - superficial veins P - reflux General skin exam: dry skin Neuro General: oriented to person, oriented to place and oriented to time Extrem Right lower extremity: full ROM, normal capillary refill and edema Left lower extremity: full ROM, normal capillary refill and edema Psych Mental Status: mental status grossly normal Results Reviewed Results Reviewed: Brief summary of venous insufficiency testing is as follows: right great saphenous vein: negative right small saphenous vein: negative right accessory vein: none present left great saphenous vein: Positive left small saphenous vein: negative left accessory vein: none present Please note there is no evidence of any venous aneurysms or significant tortuosity Assessment & Plan Assessment & Plan (1) Varicose veins of left lower extremity with inflammation: Code(s): I83.12 - Varicose veins of left lower extremity with inflammation Plan: This patient has varicose veins with inflammation. They continue to be a source of discomfort for the patient. The patient has tried conservative treatment with compression, leg elevation and exercise program for over 3 months time. They have been compliant with all treatment. This has provided minimal relief for the patient. I do not anticipate this course of treatment will alter the underlying etiology. The patient has been scheduled for lower extremity venous treatment inclusive of --- left great saphenous vein radiofrequency ablation. Risks, benefits, and complications of this procedure has been discussed in detail with the patient including but not limited to bleeding, infection, and the development of a DVT. The patient has demonstrated a clear understanding and has consented. We will schedule the patient as soon as possible. Thank you for allowing us to participate in this patient's care. If there are any questions or concerns please do not hesitate to contact us. Coding Level of Care Code Est Pt Level 4 (69036) Diagnoses Varicose veins of left lower extremity with inflammation I83.12
== END 2023-07-09 10:18 | disposition home or self-care (01) ==
PROVIDERS: PCP Internal Medicine; Visit Provider Surgery Vascular Surgery
DX: I83.12 Varicose veins of left lower extremity with inflammation (principal)
CPT/HCPCS: 99214

== ENCOUNTER → 2023-07-09 09:37 | Outpatient (BNVA) | payer OTHER, SELFPAY | PROVIDERS: PCP Internal Medicine; Visit Provider Surgery Vascular Surgery ==

== ENCOUNTER 2023-08-02 07:13 | Outpatient (AMB) | payer OTHER, SELFPAY ==
[2023-08-02 10:35] VITALS: BMI 40.1
--- NOTE | 2023-08-02 10:35 | MHC.OFFVIS ---
Intake Vital Signs 08/02/23 10:35 Height 5 ft 1 in Weight 212 lb BMI 40.1 Intake Visit Reasons: Left GSV RFA Accompanied by: Self / Same As Patient Allergies No Known Drug Allergies Allergy (Unknown, Verified 08/02/23 10:35) Unknown [facility] Medical History Vertigo Impaired fasting glucose Vitamin D deficiency Obesity (BMI 30-39.9) Elevated LFTs Pure hypercholesterolemia Acquired hypothyroidism Surgical History History of lumpectomy of right breast (03/14/22) History of incisional hernia repair H/O colonoscopy History of laparoscopic appendectomy History of laparoscopic cholecystectomy (~05/18/19) Family History Father Heart disease Hypertension Hyperlipidemia Mother Hyperlipidemia Hypothyroidism Diabetes Son Down's syndrome Maternal Aunt Leukemia Maternal Aunt Brain tumor Maternal Uncle Jaw cancer Lung cancer Maternal Aunt Lung cancer Maternal Grandfather Brain cancer Social History Household Members: Spouse and Children Housing: House Are you a primary child care attendant to a significant other at home: No Do you presently have visiting nurse or other home services: No Alcohol intake: current Alcohol intake frequency: does not drink Patient Tobacco Use Status: Never used Tobacco e-Cigarette/Vaping Use: Never Used Second Hand Smoke Exposure: Yes service: No Current occupational status: unemployed Cognitive needs: No Hearing needs: No Vision needs: No Female Reproductive History Menstrual Age of Menarche: 14 Physical Exam Vital Signs: BMI result Body Mass Index 40.1 Office Procedures Vascular Office Procedure Details Details: Diagnosis: Varicose veins with inflammation of left leg Procedure: Endovenous radiofrequency ablation of the left great saphenous vein(s) of the lower extremity with Venclose RF ablation Anesthesia: Local infiltration 5 cc, Tumescent 300 cc. Estimated Blood Loss: Minimal The patient was transferred to the procedure suite and the insufficient saphenous vein was mapped by ultrasound and diagrammed on the overlying skin. The depth and diameter of the vein(s) to be treated was documented. The varicose tributary veins and suitable access sites were identified and mapped as well. The patient was then positioned supine on the procedure table. The affected limb was prepped and draped in the usual sterile fashion. The RF catheter was placed on the sterile field, flushed and wiped down, prepared, and connected by a sterile cable. The patient was placed in a supine position and local anesthesia was instilled in the skin overlying the access site. A skin incision was made overlying the identified and mapped great saphenous vein entry site. The vein was accessed using ultrasound guidance and the Seldinger technique, a guide wire was introduced through the needle, which was then exchanged over the guide wire for a 6F sheath, which was secured in place. The guide wire was removed and the sheath was flushed. The RF catheter was placed into the vein through the sheath and preferentially, imaging was used to place the catheter tip just inferior to the superficial epigastric vein to preserve normal physiological flow in that vein. Additionally, it was confirmed by ultrasound guidance that the catheter tip was also placed a minimum of 1.5cm distal to the saphenofemoral junction. After the RF catheter position was verified by ultrasound, tumescent anesthesia was infiltrated, under ultrasound guidance, precisely into the perivenous compartment along the entire length of vein from the entry site to the saphenofemoral junction until a halo of fluid was noted around the vein. The patient was appropriately position. After RF catheter position was again confirmed with ultrasound imaging, and under direct external compression along the length of the heating element, RF energy was applied. The vein was segmentally ablated by heating a 10 cm segment and then indexing the catheter forward by 9.5 cm until the treatment length is completed. Device temperature was maintained at 120 plus or minus 5 degrees C with an initial power level of 4W/cm dropping to below 2W/cm for each treatment. Total vein length treated 20 cm Total cycles of RF 4. Repeat ultrasound of the saphenous vein was performed, confirming successful treatment. The catheter and sheath were withdrawn and hemostasis established with direct pressure. After assuring hemostasis, the skin incision over the saphenous vein was closed with a steristip and a compression wrap was applied from the level of the foot to the most proximal level of the thigh. Discharge instructions were given to the patient inclusive of follow-up ultrasound and recommended follow-up with us. 88633 - Endovenous RF, 1st Vein All charges added?: Procedure code (CPT) selection complete Assessment & Plan Assessment & Plan (1) Varicose veins of left lower extremity with inflammation: Comment: 08/02/2023 - left great saphenous vein radiofrequency ablation Code(s): I83.12 - Varicose veins of left lower extremity with inflammation Plan: See op note Coding Level of Care Code Procedure Only Diagnoses Varicose veins of left lower extremity with inflammation I83.12 CPT Codes Details - Vascular 1: 83441 - Endovenous RF, 1st Vein ([id number])
== END 2023-08-02 11:07 | disposition home or self-care (01) ==
PROVIDERS: PCP Internal Medicine; Visit Provider Surgery Vascular Surgery
DX: I83.12 Varicose veins of left lower extremity with inflammation (principal)
CPT/HCPCS: 36475

== ENCOUNTER → 2023-08-02 07:13 | Outpatient (BNVA) | payer OTHER, SELFPAY | PROVIDERS: PCP Internal Medicine; Visit Provider Surgery Vascular Surgery | DX: I83.12 Varicose veins of left lower extremity with inflammation (principal) | CPT/HCPCS: 36475 ==

== ENCOUNTER 2023-08-05 11:59 | Outpatient (REF) | payer OTHER, SELFPAY ==
--- NOTE | ~2023-08-05 | US_ITS ---
EXAMINATION: US VENOUS ULTRASOUND WITH DOPPLER LOWER EXTREMITY, LEFT CLINICAL INFORMATION: Pain in left leg COMPARISON: Venous duplex 05/30/2023 TECHNIQUE: Ultrasound of the deep veins is performed from the hip to the calf with compression sonography and color and pulse Doppler assessment. Spectral analysis with color-flow imaging is performed. FINDINGS: The left greater saphenous vein was ablated beginning at 1.3 cm from the saphenofemoral junction and remains occluded. There is normal venous compression and respiratory variation and augmented flow. The visualized common femoral vein, superficial femoral vein, profunda femoral vein, popliteal vein, posterior tibial vein and peroneal vein shows no evidence of deep venous thrombosis. There is no significant popliteal fossa cyst. US/US venous duplex LE LT IMPRESSION: No DVT demonstrated in the left lower extremity.
== END 2023-08-05 12:00 | disposition home or self-care (01) ==
LOC: HO.US 11:59
PROVIDERS: PCP Internal Medicine; Visit Provider Surgery Vascular Surgery
DX: M79.605 Pain in left leg (principal)
CPT/HCPCS: 93971

== ENCOUNTER 2023-08-08 07:14 | Outpatient (REF) | payer OTHER, SELFPAY ==
[2023-08-08 07:30] LABS: MANUAL DIFF FLAG NO
[2023-08-08 07:58] LABS: Basophils Absolute Auto 0.1 X10*3/uL (0.0-0.2); Basophils Percent Auto 0.8 % (0-2); Eosinophils Absolute Auto 0.3 X10*3/uL (0.0-0.4); Eosinophils Percent Auto 3.8 % (0-4); Hematocrit 42.4 % (37.0-47.0); Hemoglobin 13.9 g/dl (12.0-16.0); Imm Gran Abs Auto 0.04 X10*3/uL (0.00-0.03); Imm Gran Pct Auto 0.5 % (0.0-0.4); Lymphocytes Absolute Auto 2.3 X10*3/uL (1.2-4.9); Mean Corpuscular HGB Conc 32.8 g/dl (31.0-35.0); Mean Corpuscular Hemoglobin 28.3 pg (27.0-33.0); Mean Corpuscular Volume 86.2 fL (80.0-98.0); Mean Platelet Volume 9.3 fL (9.4-12.3); Monocytes Absolute Auto 0.7 X10*3/uL (0.1-1.2); Monocytes Percent Auto 8.3 % (2-11); Neutrophils Absolute Auto 4.9 x10*3/uL (2.0-8.3); Neutrophils Percent Auto 58.6 % (45-73); Platelet Count 283 X10*3/uL (160-400); Red Blood Count 4.92 X10*6/uL (4.20-5.50); Red Cell Distribution Width 13.3 % (11.0-16.0); White Blood Count 8.4 X10*3/uL (4.8-10.8)
[2023-08-08 08:04] LABS: Estimated Average Glucose 131 mg/dL; Hemoglobin A1c % 6.2 % (<6.0)
[2023-08-08 08:04] LABS: Appearance Urine Clear; Color Urine Yellow; Glucose Urine UA Negative (Negative); Leukocyte Esterase Urine Moderate (2+) (Negative); Nitrite Urine Negative (Negative); PH 5.5 (5.0-9.0); UMIC TRIGGER UACC YES; Urine Blood Moderate (2+) (Negative); Urine Ketones Negative (Negative); Urine Protein Negative (Neg-Trace)
[2023-08-08 08:07] LABS: Bacteria Urine None Seen (None Seen); Hyaline Casts Urine 0-2 /LPF (0-2); Squamous Epithelial Cell Urine 0-2 /HPF (0-2); UACC Culture Trigger YES; WBC Urine 21-50 /HPF (0-5)
[2023-08-08 08:28] LABS: Alanine Aminotransferase 22 U/L (0-31); Albumin Level 4.2 g/dL (3.5-5.0); Alkaline Phosphatase 65 U/L (39-117); Anion Gap 11 (12-20); Aspartate Amino Transferase 25 U/L (5-31); Bilirubin Total 0.7 mg/dL (0.0-1.0); Blood Urea Nitrogen 13 mg/dL (9-16); Calcium 9.8 mg/dL (8.4-10.2); Carbon Dioxide 31 mmol/L (22-29); Chloride 106 mmol/L (96-108); Cholesterol 247 mg/dL (<200); Estimated Glomerular Filt Rate 54; Glucose Fasting 96 mg/dL (60-99); HDL Cholesterol 39 mg/dL (>40); LDL Cholesterol Calculated 184 mg/dL (<100); Potassium 4.6 mmol/L (3.3-5.1); Sodium 143 mmol/L (135-145); Total Protein 7.6 g/dL (6.5-8.0); Triglycerides 123 mg/dL (<150)
[2023-08-08 08:45] LABS: Free T4 (Free Thyroxine) 0.65 ng/dL (0.71-1.85); Thyroid Stimulating Hormone 14.73 uIU/mL (0.32-4.0); Vitamin D 25-OH Total 8.6 ng/mL (>30)
== END 2023-08-08 07:15 | disposition home or self-care (01) ==
LOC: HO.LAB 07:14
PROVIDERS: PCP Internal Medicine; Visit Provider Internal Medicine
DX: E03.9 Hypothyroidism, unspecified (principal); E78.00 Pure hypercholesterolemia, unspecified; R73.01 Impaired fasting glucose; I10 Essential (primary) hypertension; E55.9 Vitamin D deficiency, unspecified; R30.0 Dysuria
CPT/HCPCS: 36415; 80053; 80061; 81001; 81003; 82306; 83036; 84439; 84443; 85025; 87086

== ENCOUNTER 2023-08-13 10:07 | Outpatient (AMB) | payer OTHER, SELFPAY ==
--- NOTE | 2023-08-13 10:32 | MHC.PC.OV ---
Vital Signs 08/13/23 10:35 Height 5 ft 1 in Weight 212 lb 2 oz BMI 40.1 BP 128/78 Blood Pressure Location Lt brachial Position Sitting Pulse 65 Pulse Source Pulse Oximeter Pulse Oximetry (%) 97 Oxygen Delivery Method Room Air Intake Visit Reasons: Hyperlipidemia/Hypothyroidism/Vitamin D Deficiency Intake Note: Patient is here to follow up on Hyperlipidemia, hypothyroidism, Vit D Deficiency . Ball Rolling Machine Operator Required: No Registered Route Associate: Not Required per policy Accompanied by: Self / Same As Patient Allergies No Known Drug Allergies Allergy (Unknown, Verified 08/13/23 11:08) Unknown Medication List - Last Reconciled 08/13/23 by Renzo Collins MD atorvastatin 10 mg PO BEDTIME 90 days cholecalciferol (vitamin D3) 50 mcg PO DAILY 90 days denosumab (Prolia) 60 mg subcut [id number] diclofenac sodium 1% 2 grams topical QID letrozole 2.5 mg PO DAILY levothyroxine 137 mcg PO DAILY 90 days levothyroxine 37.5 mcg PO DAILY multivitamin 1 tab PO DAILY Tobacco use date assessed: 08/13/23 Dental Screening Dental Screen Date: 08/13/23 Did you have a dental visit in the last 12 months?: Yes Did you have a dental problem in the last 6 months where you did not have access to dental care?: No Was dental information given to patient?: Patient has dentist HPI Hyperlipidemia/Hypothyroidism/Vitamin D Deficiency HPI Details Patient comes in today for her follow up visit States that she feels okay She denies any headaches or dizziness Denies any chest pains, no SOB No nausea/vomiting, no abdominal pain No change in bowel habits noted States that she is now seeing vascular surgery for her varicose veins and just had radiofrequency ablation done a couple of weeks ago on her left leg Had her follow up labs done a few days ago - to discuss her results [facility] Medical History Vertigo Impaired fasting glucose Vitamin D deficiency Obesity (BMI 30-39.9) Elevated LFTs Pure hypercholesterolemia Acquired hypothyroidism Surgical History History of lumpectomy of right breast (03/14/22) History of incisional hernia repair H/O colonoscopy History of laparoscopic appendectomy History of laparoscopic cholecystectomy (~05/18/19) Family History Father Heart disease Hypertension Hyperlipidemia Mother Hyperlipidemia Hypothyroidism Diabetes Son Down's syndrome Maternal Aunt Leukemia Maternal Aunt Brain tumor Maternal Uncle Jaw cancer Lung cancer Maternal Aunt Lung cancer Maternal Grandfather Brain cancer Social History Household Members: Spouse and Children Housing: House Are you a primary date night caregiver to a significant other at home: No Do you presently have visiting nurse or other home services: No Alcohol intake: current Alcohol intake frequency: does not drink Patient Tobacco Use Status: Never used Tobacco e-Cigarette/Vaping Use: Never Used Second Hand Smoke Exposure: Yes service: No Current occupational status: unemployed Cognitive needs: No Hearing needs: No Vision needs: No Female Reproductive History Menstrual Age of Menarche: 14 Questionnaire PHQ-9 Over the last 2 weeks, how often have you been bothered by any of the following problems? 1. Little interest or pleasure in doing things: not at all 2. Feeling down, depressed, or hopeless: not at all 3. Trouble falling or staying asleep, or sleeping too much: not at all 4. Feeling tired or having little energy: not at all 5. Poor appetite or overeating: not at all 6. Feeling bad about yourself - or that you are a failure or have let yourself or your family down: not at all 7. Trouble concentrating on things, such as reading the newspaper or watching television: not at all 8. Moving or speaking so slowly that other people could have noticed. Or the opposite - being so fidgety or restless that you have been moving around a lot more than usual: not at all 9. Thoughts that you would be better off or of hurting yourself in some way: not at all Total score: 0 Depression Screening Interpretation: Negative Depression Screening Done: Yes 45483 - PHQ-9 Billing: Yes Source: Developed by Drs. Nathan Singer, Margot Dinh, Juan Russo and colleagues, with an educational toshia from [employer]. Thrive Questionnaire Date Thrive assessed: 08/13/23 I am a: Patient What is your living situation today?: I have a steady place to live Within the past 12 months, did the food you bought not last and you didn't have the money to get more?: Never true Within the past 12 months, did you worry whether your food would run out before you got money to buy more?: Never true Do you have trouble paying for medicines?: No Do you have trouble getting transportation to medical appointments?: No Do you have trouble paying your heating and electricity bill?: No Do you have trouble taking care of your child, family member or friend?: No Do you have trouble with day-to-day activities such as bathing, preparing meals, shopping, managing finances, etc.?: No Are you currently unemployed and looking for a job?: No Are you interested in more education?: No Currently or been in a relationship where the following occur: no concerns reported THRIVE Score: 0 AUDIT C Alcohol Use Questionnaire (AUDIT-C) 1. How often do you have a drink containing alcohol?: Never 3. How often do you have six or more drinks on one occasion?: Never Total Score: 0 Score Reviewed/Action Taken: Yes PARDEEP-7 AMB Questionnaire PARDEEP-7 Date PARDEEP - 7 assessed: 08/13/23 Feeling nervous, anxious, or on edge: 0 = Not at all Not being able to stop or control worryin = Not at all Worrying too much about different things: 0 = Not at all Trouble relaxin = Not at all Being so restless that it is hard to sit still: 0 = Not at all Becoming easily annoyed or irritable: 0 = Not at all Feeling afraid as if something awful might happen: 0 = Not at all Total PARDEEP-7 score (0-4 normal; 5-9 mild; 10-14 moderate; 15-21 severe): 0 Source: Developed by Drs. Nathan Singer, Margot Dinh, Juan Russo and colleagues, with an educational toshia from [employer]. Review of Systems Const Denies chills, Denies fatigue, Denies fever(s) and Denies headache(s) ENT Denies dysphagia, Denies dizziness, Denies otalgia, Denies headache(s), Denies odynophagia and Denies sore throat Card Denies chest pain, Denies palpitations and Denies dyspnea Resp Denies cough and Denies dyspnea GI Denies abdominal pain, Denies constipation, Denies dysphagia, Denies heartburn, Denies diarrhea, Denies nausea, Denies odynophagia and Denies vomiting Denies difficulty voiding, Denies nocturia, Denies dysuria and Denies urinary urgency Musc Denies back pain Skin/Breast Denies rash Neuro Denies dizziness and Denies headache(s) Endo Denies fatigue and Denies palpitations Sabino/Lymph Details: (+) prominent varicose veins on both lower legs, worse on the left leg Physical exam (Primary Care) Vital Signs: Last Vital Signs Pulse 65 08/13/23 10:35 BP 128/78 08/13/23 10:35 Pulse Ox 97 08/13/23 10:35 Oxygen Delivery Method Room Air 08/13/23 10:35 BMI result Body Mass Index 40.1 Tobacco/Smoking Status: Tobacco use Status Tobacco use date assessed 08/13/23 08/13/23 10:38 Patient Tobacco Use Status Never used Tobacco 08/13/23 10:38 e-Cigarette/Vaping Use Never Used 08/13/23 10:38 PHQ-9: PHQ-9 Score PHQ-9: Total score 0 08/13/23 10:38 Depression Screening Interpretation: Negative Thrive Assessment: Date of Thrive Assessment Date Thrive assessed 08/13/23 08/13/23 10:38 Currently or been in a relationship where the following occur: no concerns reported Const General: no acute distress and alert HENMT Ears: TM's normal bilaterally and EAC's normal Throat: Yes posterior oropharynx normal and Yes tonsils normal (no TP congestion) Neck Neck: Yes no lymphadenopathy and Yes supple Resp Auscultation: clear to auscultation bilaterally, no rales and no wheezes Cardio Rate: regular rate Rhythm: regular rhythm Heart sounds: no murmurs GI Palpation (GI): Soft to palpation and nontender Auscultation: normal bowel sounds Back/Spine/Pelvis Thoracic/Lumbar Spine: No lumbar spinal tenderness Skin Rashes: no rashes Extrem Other: (+) prominent areas of varicose veins over both lower extremities; (+) tenderness on palpation noted over some prominent veins on her left leg medially, just a couple of inches below the knee joint General: Yes no clubbing, cyanosis or edema Results Reviewed Results Reviewed: Laboratory Tests 01/24/23 01/24/23 08/08/23 08:20 08:20 07:25 WBC Hgb Hct Plt Count Sodium Potassium Creatinine Estimated GFR Fasting Glucose Hemoglobin A1c % Calcium AST ALT Triglycerides Cholesterol 186 LDL Cholesterol, Calc 111 H HDL Cholesterol 25-OH Vitamin D Total TSH Free T4 Ur Specific [place] 1.020 Urine Protein Negative Urine Glucose (UA) Negative Urine Blood Moderate (2+) H Urine Nitrite Negative Ur Leukocyte Esterase Moderate (2+) H 08/08/23 08/08/23 08/08/23 07:28 07:28 07:28 WBC Hgb 13.9 Hct 42.4 Plt Count 283 Sodium 143 Potassium 4.6 Creatinine 1.04 Estimated GFR 54 Fasting Glucose 96 Hemoglobin A1c % 6.2 H Calcium 9.8 AST 25 ALT 22 Triglycerides 123 Cholesterol 247 H LDL Cholesterol, Calc 184 H HDL Cholesterol 39 L 25-OH Vitamin D Total 8.6 L TSH Free T4 0.65 L Ur Specific [place] Urine Protein Urine Glucose (UA) Urine Blood Urine Nitrite Ur Leukocyte Esterase 08/08/23 07:28 WBC 8.4 Hgb Hct Plt Count Sodium Potassium Creatinine Estimated GFR Fasting Glucose Hemoglobin A1c % Calcium AST ALT Triglycerides Cholesterol LDL Cholesterol, Calc HDL Cholesterol 25-OH Vitamin D Total TSH 14.73 H Free T4 Ur Specific [place] Urine Protein Urine Glucose (UA) Urine Blood Urine Nitrite Ur Leukocyte Esterase Assessment and Plan Assessment & Plan (1) Pure hypercholesterolemia: Code(s): E78.00 - Pure hypercholesterolemia, unspecified Plan: Results of her labs done a few days ago reviewed and discussed with patient - advised that her cholesterol levels have increased significantly from previous Reinforced low cholesterol diet Continue Atorvastatin 10 mg QD for now (she is still tolerating her Rx without any problems) but advised that we may need to increase her dose at her next visit if her cholesterol numbers do not improve significantly over the next few months Will recheck her labs and fasting lipids in 4 months for follow up (2) Acquired hypothyroidism: Code(s): E03.9 - Hypothyroidism, unspecified Plan: Patient is advised that her TSH level has increased significantly from previous and that her TFTs at this time appears completely off, which does not make any sense as we have not adjusted her dose at all Continue Levothyroxine 137 mcg QD although for unknown reasons, there is an Rx for a 37.5 mg dose in her file - have advised patient to double check with her pharmacy regarding her Levothyroxine Rx and that her current dose is the 137 mcg and not the 37.5 mcg dose Will recheck her TFTs in 4 months for follow up (3) Elevated LFTs: Code(s): R79.89 - Other specified abnormal findings of blood chemistry Plan: Improved; LFTs have remained normal on her recent labs - were most likely due to her weight Will continue to monitor her LFTs regularly (4) Impaired fasting glucose: Code(s): R73.01 - Impaired fasting glucose Plan: She is cautioned that her HgbA1c has increased to 6.2% on her recent labs; was at 5.9% a few months ago - she has (+) family Hx of DM (mother) and is concerned about this Her FBS remained normal at 96 mg/dl Reinforced low calorie diet/exercise as tolerated Will continue to monitor her blood sugar and glycemic control closely (5) Ductal carcinoma in situ of left breast: Code(s): D05.12 - Intraductal carcinoma in situ of left breast Plan: S/P surgical excision on 03/14/2022 (Dr. Pittman); was also positive for both estrogen and progesterone receptors and will need antiestrogen therapy after completing her treatments S/P radiation Tx (completed in 05/2022) Continue Letrozole 2.5 mg QD Follow up with oncology as scheduled (6) Osteopenia due to cancer therapy: Code(s): M85.80 - Other specified disorders of bone density and structure, unspecified site Plan: Continue Prolia 60 mg SQ every 6 months Patient is encouraged to continue to stay active and exercise regularly and to continue on her daily oral Calcium and Vitamin D supplements (7) Vitamin D deficiency: Code(s): E55.9 - Vitamin D deficiency, unspecified Plan: Continue Vitamin D3 2000 units QD - advised that her Vitamin D level has dropped off significantly on her recent labs (8) Varicose veins of bilateral lower extremities with pain: Code(s): I83.813 - Varicose veins of bilateral lower extremities with pain Plan: S/P RFA on her left lower extremity a couple of weeks ago Follow up with vascular surgery as scheduled (9) Obesity (BMI 30-39.9): Code(s): E66.9 - Obesity, unspecified Plan: Reinforced diet/exercise as tolerated/lose weight Plan Follow up in 4 months Orders: Orders Free T4 (Free Thyroxine) 4 Months E03.9 - Hypothyroidism, unspecified UA CC w/rflx Micro + Cult 4 Months R30.0 - Dysuria Vitamin D 25-OH Total 4 Months E55.9 - Vitamin D deficiency, unspecified Comprehensive [place]. Panel Fast 4 Months E78.00 - Pure hypercholesterolemia, unspecified Lipid Panel 4 Months E78.00 - Pure hypercholesterolemia, unspecified Complete Blood Count Auto Diff 4 Months D64.9 - Anemia, unspecified Hemoglobin A1c 4 Months E11.9 - Type 2 diabetes mellitus without complications Thyroid Stimulating Hormone 4 Months E03.9 - Hypothyroidism, unspecified Coding Level of Care Code Est Pt Level 4 (29884) Diagnoses Pure hypercholesterolemia E78.00 Acquired hypothyroidism E03.9 Elevated LFTs R79.89 Impaired fasting glucose R73.01 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 M85.80 Vitamin D deficiency E55.9 Varicose veins of bilateral lower extremities with pain I83.813 Obesity (BMI 30-39.9) E66.9
[2023-08-13 10:35] VITALS: BP 128/78; PULSE 65; O2SAT 97; BMI 40.1
== END 2023-08-13 11:23 | disposition home or self-care (01) ==
PROVIDERS: PCP Internal Medicine; Visit Provider Internal Medicine
DX: E78.00 Pure hypercholesterolemia, unspecified (principal); E03.9 Hypothyroidism, unspecified; Z68.41 Body mass index [BMI] 40.0-44.9, adult; E66.9 Obesity, unspecified; R79.89 Other specified abnormal findings of blood chemistry; R73.01 Impaired fasting glucose; D05.12 Intraductal carcinoma in situ of left breast; M85.80 Other specified disorders of bone density and structure, unspecified site; E55.9 Vitamin D deficiency, unspecified; I83.813 Varicose veins of bilateral lower extremities with pain
CPT/HCPCS: 99214

== ENCOUNTER 2023-09-10 08:36 | Outpatient (AMB) | payer OTHER, SELFPAY ==
--- NOTE | 2023-09-10 08:57 | A.OFFVIS_ITS ---
Vital Signs 09/10/23 09:05 Height 5 ft 1 in Weight 213 lb BMI 40.2 BP 181/75 H Blood Pressure Location Lt brachial Position Sitting Pulse 67 Intake Visit Reasons: Breast exam, 6 month follow up Intake Note: Patient is seen in office for 6 month follow up visit, breast exam. Pt c/o: denies any concerns at the time of visit mm:03/07/24 Tugboat Pilot Required: No Accompanied by: Self / Same As Patient Allergies No Known Drug Allergies Allergy (Unknown, Verified 09/10/23 09:05) Unknown HPI Comments Details: 57-year-old female patient returning for breast cancer follow-up examination. She was diagnosed with left breast ductal carcinoma in situ in 2 lesions found on stereotactic core biopsy on 02/15/2022 and subsequently underwent a left breast lumpectomy with needle localization x3 on 03/14/2022. Pathology confirmed DCIS x2 and atypical ductal hyperplasia in 1 lesion. Margins were 4 mm on 1 cluster of DCIS, and 1.5 mm on the 2nd cluster of DCIS. A wider excision at the time of the original biopsy placed the margins well beyond 2 mm. She was subsequently evaluated by Medical Oncology (Dr. Lewis) and letrozole recommended. She completed radiation therapy at [facility] on 06/01/2022. Mammogram dated 02/15/2023 revealed probably benign findings in the left breast (BI-RADS 3), and follow-up diagnostic mammogram is recommended in 12 months. She feels well and denies any ongoing breast symptoms. [facility], [facility] Medical History Vertigo Impaired fasting glucose Vitamin D deficiency Obesity (BMI 30-39.9) Elevated LFTs Pure hypercholesterolemia Acquired hypothyroidism Surgical History History of lumpectomy of right breast (03/14/22) History of incisional hernia repair H/O colonoscopy History of laparoscopic appendectomy History of laparoscopic cholecystectomy (~05/18/19) Family History Father Heart disease Hypertension Hyperlipidemia Mother Hyperlipidemia Hypothyroidism Diabetes Son Down's syndrome Maternal Aunt Leukemia Maternal Aunt Brain tumor Maternal Uncle Jaw cancer Lung cancer Maternal Aunt Lung cancer Maternal Grandfather Brain cancer Social History Household Members: Spouse and Children Housing: House Are you a primary care tech to a significant other at home: No Do you presently have visiting nurse or other home services: No Alcohol intake: current Alcohol intake frequency: does not drink Patient Tobacco Use Status: Never used Tobacco e-Cigarette/Vaping Use: Never Used Second Hand Smoke Exposure: Yes service: No Current occupational status: unemployed Cognitive needs: No Hearing needs: No Vision needs: No Female Reproductive History Menstrual Age of Menarche: 14 Review of Systems Const All systems reviewed & are unremarkable except as noted in HPI and below Denies chills, Denies fever(s), Denies headache(s), Denies poor appetite and Denies weakness ENT Denies headache(s) Card Denies chest pain, Denies irregular heart rhythm, Denies palpitations and Denies dyspnea Resp Denies cough, Denies excessive phlegm production and Denies dyspnea GI Denies abdominal pain, Denies bloating, Denies change in bowel habits, Denies constipation, Denies heartburn, Denies diarrhea, Denies nausea and Denies vomiting Denies urinary frequency and Denies nipple discharge Musc Denies back pain, Denies muscle weakness and Denies numbness Skin/Breast Denies breast swelling, Reports breast skin changes, Denies breast pain, Denies breast mass, Denies change in breast shape, Denies changing lesions, Denies nipple discharge and Denies unusual bruising Neuro Denies headache(s), Denies numbness, Denies paresthesias and Denies weakness Psych Denies anxiety and Denies depression Endo Denies palpitations Sabino/Lymph Denies lymphadenopathy Physical Exam Const General: no acute distress and well developed Nutritional Appearance: well nourished Orientation/consciousness: patient oriented x3 Limitations: no limitations Chest Other: Left breast periareolar incision is clean, dry, and intact without redness or discharge. Volume loss is noted in the left breast compared to the right breast. No palpable mass, skin change, nipple discharge or enlarged lymph nodes appreciated. Right breast reveals no palpable mass, skin change, nipple discharge or enlarged lymph nodes. Resp Effort & Inspection: normal respiratory effort Neuro General: patient oriented x3 Extrem General: Yes no clubbing, cyanosis or edema Assessment & Plan Assessment & Plan (1) Ductal carcinoma in situ of left breast: Code(s): D05.12 - Intraductal carcinoma in situ of left breast Category: Medical Plan 57-year-old female patient found to have 2 clusters of DCIS in the left breast at the lower outer quadrant. She is status post lumpectomy needle localization. As noted above her margins were clear and adequate. She tolerated radiation therapy well and denies any ongoing breast symptoms. She started on letrozole and denies any ongoing symptoms at this time. Examination today reveals normal postoperative changes in the left breast but no palpable mass or enlarged lymph nodes. Right breast is normal as well. I recommended she return in 6 months and diagnostic mammogram in January 2024. Coding Level of Care Code Est Pt Level 3 (19763) Diagnoses 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.12
[2023-09-10 09:05] VITALS: BP 181/75; PULSE 67; BMI 40.2
== END 2023-09-10 09:16 | disposition home or self-care (01) ==
PROVIDERS: PCP Internal Medicine; Visit Provider Surgery
DX: D05.12 Intraductal carcinoma in situ of left breast (principal)
CPT/HCPCS: 99213

== ENCOUNTER → 2023-09-10 08:36 | Outpatient (BNVA) | payer OTHER, SELFPAY | PROVIDERS: PCP Internal Medicine; Visit Provider Surgery ==

== ENCOUNTER 2023-09-26 08:40 | Outpatient (AMB) | payer OTHER, SELFPAY ==
--- NOTE | 2023-09-26 08:57 | MHC.OFFVIS ---
Vital Signs 09/26/23 08:58 Height 5 ft 1 in Weight 212 lb BMI 40.1 Intake Visit Reasons: follow up GSV Ablation Intake Note: Follow up Left GSV RFA 08/02/23, pt states it feels better than before procedure. Pt states no other issues, still wearing compression socks Accompanied by: Self / Same As Patient Allergies No Known Drug Allergies Allergy (Unknown, Verified 09/26/23 09:00) Unknown HPI HPI follow up GSV Ablation: Details: Very pleasant 57-year-old female presents for follow-up evaluation status post left great saphenous vein ablation. She reports that the swelling and discomfort have improved. She has no current issues on the right side. In addition she is actually wearing her compression stockings at the visit in reports that she is doing extremely well with all of this. She now presents for routine follow-up. Of note postprocedure ultrasound was negative for DVT PFSH Medical History Vertigo Impaired fasting glucose Vitamin D deficiency Obesity (BMI 30-39.9) Elevated LFTs Pure hypercholesterolemia Acquired hypothyroidism Surgical History History of lumpectomy of right breast (03/14/22) History of incisional hernia repair H/O colonoscopy History of laparoscopic appendectomy History of laparoscopic cholecystectomy (~05/18/19) Family History Father Heart disease Hypertension Hyperlipidemia Mother Hyperlipidemia Hypothyroidism Diabetes Son Down's syndrome Maternal Aunt Leukemia Maternal Aunt Brain tumor Maternal Uncle Jaw cancer Lung cancer Maternal Aunt Lung cancer Maternal Grandfather Brain cancer Social History Household Members: Spouse and Children Housing: House Are you a primary long term acute care registered nurse to a significant other at home: No Do you presently have visiting nurse or other home services: No Alcohol intake: current Alcohol intake frequency: does not drink Patient Tobacco Use Status: Never used Tobacco e-Cigarette/Vaping Use: Never Used Second Hand Smoke Exposure: Yes service: No Current occupational status: unemployed Cognitive needs: No Hearing needs: No Vision needs: No Female Reproductive History Menstrual Age of Menarche: 14 Review of Systems Const All systems reviewed & are unremarkable except as noted in HPI and below Reports no additional complaints ENT Reports Normal hearing present Card Denies chest pain, Denies chest pain at rest, Denies chest pain with activity and Denies pedal edema Resp Denies cough GI Denies abdominal pain Musc Denies abnormal gait, Denies muscle cramps and Denies radiating pain into limb Skin/Breast Denies skin ulcer and Denies wounds Neuro Reports Normal hearing present and Denies abnormal gait Psych Reports no additional complaints Physical Exam Vital Signs: BMI result Body Mass Index 40.1 Const General: cooperative, healthy appearing and comfortable Orientation/consciousness: oriented to person, oriented to place and oriented to time HEENT Head: Yes normal to inspection Neck Neck: Yes normal visual inspection Carotids: no bruits Chest Chest palpation & inspection: normal inspection of the chest Resp Effort & Inspection: normal respiratory effort and able to speak in complete sentences Auscultation: clear to auscultation bilaterally, no crackles, no rales, no rhonchi and no wheezes Cardio Rate: regular rate Rhythm: regular rhythm Heart sounds: S1 normal heart sound present and S2 normal heart sound present Bruits: no carotid bruits Peripheral pulses: Peripheral pulses 2+ throughout GI Inspection: Yes normal to inspection Skin Wounds: no wounds Hair: normal Neuro General: oriented to person, oriented to place and oriented to time Cranial nerves: Yes CN's II-XII intact bilaterally and Yes Normal hearing present Cognition (Neuro): normal cognition Motor exam (neuro): 5/5 motor strength present throughout Extrem Other: venous exam: No significant superficial varicosities or spider telangiectasias, minimal edema General: No clubbing, No cyanosis and No edema Psych Appearance: grossly normal Mental Status: mental status grossly normal Speech and movement: Normal speech and movement present Assessment & Plan Assessment & Plan (1) Varicose veins of left lower extremity with inflammation: Comment: 08/02/2023 - left great saphenous vein radiofrequency ablation Code(s): I83.12 - Varicose veins of left lower extremity with inflammation Category: Medical Plan: The patient has done extremely well with all venous treatments. Patient's may often experience postprocedure phlebitic episodes and I have discussed with the patient use of warm compresses and NSAIDS if tolerated for pain discomfort. In addition, I have discussed continued conservative measures including use of compression, leg elevation, and exercise. The patient was also given an information sheet regarding appropriate use of compression stockings and future purchases. Thank you for allowing us to care for your patient with venous disease. Coding Level of Care Code Est Pt Level 3 (37588) Diagnoses Varicose veins of left lower extremity with inflammation I83.12
[2023-09-26 08:58] VITALS: BMI 40.1
== END 2023-09-26 09:21 | disposition home or self-care (01) ==
PROVIDERS: PCP Internal Medicine; Visit Provider Surgery Vascular Surgery
DX: I83.12 Varicose veins of left lower extremity with inflammation (principal)
CPT/HCPCS: 99213

== ENCOUNTER → 2023-09-26 08:40 | Outpatient (BNVA) | payer OTHER, SELFPAY | PROVIDERS: PCP Internal Medicine; Visit Provider Surgery Vascular Surgery ==

== ENCOUNTER 2023-12-12 09:50 | Outpatient (REF) | payer OTHER, SELFPAY ==
[2023-12-12 11:02] LABS: MANUAL DIFF FLAG NO
[2023-12-12 11:10] LABS: Appearance Urine Cloudy; Color Urine Yellow; Glucose Urine UA Negative (Negative); Leukocyte Esterase Urine Moderate (2+) (Negative); Nitrite Urine Positive (Negative); PH 5.5 (5.0-9.0); UMIC TRIGGER UACC YES; Urine Blood Moderate (2+) (Negative); Urine Ketones Negative (Negative); Urine Protein Trace mg/dL (Neg-Trace)
[2023-12-12 11:18] LABS: Basophils Absolute Auto 0.1 X10*3/uL (0.0-0.2); Basophils Percent Auto 1.1 % (0-2); Eosinophils Absolute Auto 0.2 X10*3/uL (0.0-0.4); Eosinophils Percent Auto 2.9 % (0-4); Hematocrit 43.3 % (37.0-47.0); Hemoglobin 13.9 g/dl (12.0-16.0); Imm Gran Abs Auto 0.02 X10*3/uL (0.00-0.03); Imm Gran Pct Auto 0.3 % (0.0-0.4); Lymphocytes Percent Auto 25.9 % (20-40); Mean Corpuscular HGB Conc 32.1 g/dl (31.0-35.0); Mean Corpuscular Hemoglobin 27.8 pg (27.0-33.0); Mean Corpuscular Volume 86.6 fL (80.0-98.0); Mean Platelet Volume 9.6 fL (9.4-12.3); Monocytes Absolute Auto 0.6 X10*3/uL (0.1-1.2); Monocytes Percent Auto 7.4 % (2-11); Neutrophils Absolute Auto 4.8 x10*3/uL (2.0-8.3); Neutrophils Percent Auto 62.4 % (45-73); Platelet Count 322 X10*3/uL (160-400); Red Cell Distribution Width 13.4 % (11.0-16.0); White Blood Count 7.6 X10*3/uL (4.8-10.8)
[2023-12-12 11:28] LABS: Estimated Average Glucose 131 mg/dL; Hemoglobin A1c % 6.2 % (<6.0)
[2023-12-12 11:29] LABS: Bacteria Urine 4+ (None Seen); Hyaline Casts Urine 0-2 /LPF (0-2); Squamous Epithelial Cell Urine 0-2 /HPF (0-2); UACC Culture Trigger YES; WBC Urine >50 /HPF (0-5)
[2023-12-12 11:50] LABS: Alanine Aminotransferase 32 U/L (0-31); Albumin Level 4.2 g/dL (3.5-5.0); Alkaline Phosphatase 63 U/L (39-117); Anion Gap 11 (12-20); Aspartate Amino Transferase 33 U/L (5-31); Bilirubin Total 0.6 mg/dL (0.0-1.0); Blood Urea Nitrogen 11 mg/dL (9-16); Calcium 9.6 mg/dL (8.4-10.2); Carbon Dioxide 28 mmol/L (22-29); Chloride 106 mmol/L (96-108); Cholesterol 237 mg/dL (<200); Estimated Glomerular Filt Rate > 60; Glucose Fasting 97 mg/dL (60-99); HDL Cholesterol 41 mg/dL (>40); LDL Cholesterol Calculated 166 mg/dL (<100); Sodium 141 mmol/L (135-145); Total Protein 7.6 g/dL (6.5-8.0); Triglycerides 152 mg/dL (<150)
[2023-12-12 12:06] LABS: Vitamin D 25-OH Total 10.3 ng/mL (>30)
== END 2023-12-12 09:51 | disposition home or self-care (01) ==
LOC: HO.WFDLDS 09:50
PROVIDERS: Visit Provider Internal Medicine
DX: D64.9 Anemia, unspecified (principal); E55.9 Vitamin D deficiency, unspecified; E78.00 Pure hypercholesterolemia, unspecified; E11.9 Type 2 diabetes mellitus without complications; E03.9 Hypothyroidism, unspecified; R30.0 Dysuria
CPT/HCPCS: 36415; 80053; 80061; 81001; 82306; 83036; 84439; 84443; 85025; 87086; 87088; 87186

== ENCOUNTER 2023-12-13 09:18 | Outpatient (AMB) | payer OTHER, SELFPAY ==
[2023-12-13 09:21] VITALS: BP 122/72; PULSE 68; O2SAT 96; BMI 40.9
--- NOTE | 2023-12-13 09:21 | MHC.PC.OV ---
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: No Accompanied by: Daughter Allergies No Known Drug Allergies Allergy (Unknown, Verified 12/13/23 09:59) Unknown Medication List - Last Reconciled 12/13/23 by Renzo Collins MD atorvastatin 10 mg PO BEDTIME 90 days cholecalciferol (vitamin D3) 50 mcg PO DAILY 90 days denosumab (Prolia) 60 mg subcut [id number] diclofenac sodium 1% 2 grams topical QID letrozole 2.5 mg PO DAILY levothyroxine 137 mcg PO DAILY 90 days levothyroxine 37.5 mcg PO DAILY multivitamin 1 tab PO DAILY Tobacco use date assessed: 08/13/23 Dental Screening Dental Screen Date: 08/13/23 HPI [facility] f/u HPI Details Patient comes in today for her follow up visit States that she feels okay She denies any headaches or dizziness Denies any chest pains, no increased SOB - still has occasional mild POON No nausea/vomiting, no abdominal pain No change in bowel habits noted She had her follow up labs done yesterday - to discuss her results [facility] Medical History Vertigo Impaired fasting glucose Vitamin D deficiency Obesity (BMI 30-39.9) Elevated LFTs Pure hypercholesterolemia Acquired hypothyroidism Surgical History History of lumpectomy of right breast (03/14/22) History of incisional hernia repair H/O colonoscopy History of laparoscopic appendectomy History of laparoscopic cholecystectomy (~05/18/19) Family History Father Heart disease Hypertension Hyperlipidemia Mother Hyperlipidemia Hypothyroidism Diabetes Son Down's syndrome Maternal Aunt Leukemia Maternal Aunt Brain tumor Maternal Uncle Jaw cancer Lung cancer Maternal Aunt Lung cancer Maternal Grandfather Brain cancer Social History Household Members: Spouse and Children Housing: House Are you a primary child care coordinator to a significant other at home: No Do you presently have visiting nurse or other home services: No Alcohol intake: current Alcohol intake frequency: does not drink Patient Tobacco Use Status: Never used Tobacco e-Cigarette/Vaping Use: Never Used Second Hand Smoke Exposure: Yes service: No Current occupational status: unemployed Cognitive needs: No Hearing needs: No Vision needs: No Female Reproductive History Menstrual Age of Menarche: 14 Questionnaire Thrive Questionnaire Date Thrive assessed: 08/13/23 PARDEEP-7 AMB Questionnaire PARDEEP-7 Date PARDEEP - 7 assessed: 08/13/23 Source: Developed by Drs. Nathan Singer, Margot Dinh, Juan Russo and colleagues, with an educational toshia from [employer]. Review of Systems Const Denies chills, Denies fatigue, Denies fever(s) and Denies headache(s) ENT Denies dysphagia, Denies dizziness, Denies otalgia, Denies headache(s), Denies odynophagia and Denies sore throat Card Denies chest pain, Denies palpitations and Denies dyspnea Resp Denies cough and Denies dyspnea GI Denies abdominal pain, Denies constipation, Denies dysphagia, Denies heartburn, Denies diarrhea, Denies nausea, Denies odynophagia and Denies vomiting Denies difficulty voiding, Denies nocturia, Denies dysuria and Denies urinary urgency Musc Denies back pain Skin/Breast Denies rash Neuro Denies dizziness and Denies headache(s) Endo Denies fatigue and Denies palpitations Sabino/Lymph Details: (+) prominent varicose veins on both lower legs, worse on the left leg Physical exam (Primary Care) Vital Signs: Last Vital Signs Pulse 68 12/13/23 09:21 BP 122/72 12/13/23 09:21 Pulse Ox 96 12/13/23 09:21 Oxygen Delivery Method Room Air 12/13/23 09:21 BMI result Body Mass Index 40.9 Tobacco/Smoking Status: Tobacco use Status Tobacco use date assessed 08/13/23 12/13/23 09:21 Patient Tobacco Use Status Never used Tobacco 12/13/23 09:21 e-Cigarette/Vaping Use Never Used 12/13/23 09:21 Thrive Assessment: Date of Thrive Assessment Date Thrive assessed 08/13/23 12/13/23 09:21 Const General: no acute distress and alert HENMT Ears: TM's normal bilaterally and EAC's normal Throat: Yes posterior oropharynx normal and Yes tonsils normal (no TP congestion) Neck Neck: Yes no lymphadenopathy and Yes supple Resp Auscultation: clear to auscultation bilaterally, no rales and no wheezes Cardio Rate: regular rate Rhythm: regular rhythm Heart sounds: no murmurs GI Palpation (GI): Soft to palpation and nontender Auscultation: normal bowel sounds Back/Spine/Pelvis Thoracic/Lumbar Spine: No lumbar spinal tenderness Skin Rashes: no rashes Extrem Other: (+) prominent areas of varicose veins over both lower extremities General: Yes no clubbing, cyanosis or edema Results Reviewed Results Reviewed: Laboratory Tests 12/12/23 12/12/23 09:51 09:57 WBC 7.6 Hgb 13.9 Hct 43.3 Plt Count 322 Sodium 141 Potassium 4.0 Creatinine 0.87 Estimated GFR > 60 Fasting Glucose 97 Hemoglobin A1c % 6.2 H Calcium 9.6 D AST 33 H ALT 32 H Triglycerides 152 H Cholesterol 237 H LDL Cholesterol, Calc 166 H HDL Cholesterol 41 25-OH Vitamin D Total 10.3 L TSH 3.00 Free T4 1.20 Ur Specific [place] 1.020 Urine Protein Trace Urine Glucose (UA) Negative Urine Blood Moderate (2+) H Urine Nitrite Positive H Ur Leukocyte Esterase Moderate (2+) H Assessment and Plan Assessment & Plan (1) Pure hypercholesterolemia: Code(s): E78.00 - Pure hypercholesterolemia, unspecified Plan: Results of her labs done yesterday reviewed and discussed with patient - advised that her cholesterol levels have improved slightly from previous but are still elevated and needs to continue improving Reinforced low cholesterol diet Continue Atorvastatin 10 mg QD for now (she is still tolerating her Rx without any problems) but advised that we may need to increase her dose at her next visit if her cholesterol numbers do not improve significantly over the next few months Will recheck her labs and fasting lipids in 4 months for follow up (2) Acquired hypothyroidism: Code(s): E03.9 - Hypothyroidism, unspecified Plan: Her TFTs are now normal on her recent labs Continue Levothyroxine 137 mcg QD Will recheck her TFTs in 4 months for follow up (3) Elevated LFTs: Code(s): R79.89 - Other specified abnormal findings of blood chemistry Plan: Have cautioned patient that her LFTs have again increased slightly on her recent labs - are most likely due to her weight as she gained some weight lately Will continue to monitor her LFTs regularly (4) Impaired fasting glucose: Code(s): R73.01 - Impaired fasting glucose Plan: Her HgbA1c has remained unchanged from previous at 6.2% on her recent labs; was at 5.9% last year - she has (+) family Hx of DM (mother) Her FBS remained normal at 97 mg/dl on her labs done yesterday Reinforced low calorie diet/exercise as tolerated Will continue to monitor her blood sugar and glycemic control closely (5) Ductal carcinoma in situ of left breast: Code(s): D05.12 - Intraductal carcinoma in situ of left breast Plan: S/P surgical excision on 03/14/2022 (Dr. Pittman); was also positive for both estrogen and progesterone receptors and will need antiestrogen therapy after completing her treatments S/P radiation Tx (completed in 05/2022) Continue Letrozole 2.5 mg QD Follow up with oncology as scheduled (6) Osteopenia due to cancer therapy: Code(s): M85.80 - Other specified disorders of bone density and structure, unspecified site Plan: Continue Prolia 60 mg SQ every 6 months Patient is encouraged to continue to stay active and exercise regularly and to continue on her daily oral Calcium and Vitamin D supplements (7) Vitamin D deficiency: Code(s): E55.9 - Vitamin D deficiency, unspecified Plan: Continue Vitamin D3 2000 units QD - advised that her Vitamin D level is still very low on her recent labs Patient admits to forgetting to take her Vitamin D at times (8) Varicose veins of bilateral lower extremities with pain: Code(s): I83.813 - Varicose veins of bilateral lower extremities with pain Plan: S/P RFA on her left lower extremity, with significant improvement of her symptoms Follow up with vascular surgery as scheduled or as needed (9) Obesity (BMI 30-39.9): Code(s): E66.9 - Obesity, unspecified Plan: Reinforced diet/exercise as tolerated/lose weight Plan Follow up in 4 months Orders: Orders Hemoglobin A1c 4 Months R73.01 - Impaired fasting glucose Lipid Panel 4 Months E78.00 - Pure hypercholesterolemia, unspecified Free T4 (Free Thyroxine) 4 Months E03.9 - Hypothyroidism, unspecified Thyroid Stimulating Hormone 4 Months E03.9 - Hypothyroidism, unspecified Comprehensive [place]. Panel Fast 4 Months E78.00 - Pure hypercholesterolemia, unspecified Vitamin D 25-OH Total 4 Months E55.9 - Vitamin D deficiency, unspecified UA CC w/rflx Micro + Cult 4 Months R30.0 - Dysuria Coding Level of Care Code Est Pt Level 4 (05024) Complex EM visit Add On G2211 Diagnoses Pure hypercholesterolemia E78.00 Acquired hypothyroidism E03.9 Elevated LFTs R79.89 Impaired fasting glucose R73.01 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 M85.80 Vitamin D deficiency E55.9 Varicose veins of bilateral lower extremities with pain I83.813 Obesity (BMI 30-39.9) E66.9
== END 2023-12-13 10:05 | disposition home or self-care (01) ==
PROVIDERS: PCP Internal Medicine; Visit Provider Internal Medicine
DX: E78.00 Pure hypercholesterolemia, unspecified (principal); E03.9 Hypothyroidism, unspecified; R79.89 Other specified abnormal findings of blood chemistry; R73.01 Impaired fasting glucose; D05.12 Intraductal carcinoma in situ of left breast; M85.80 Other specified disorders of bone density and structure, unspecified site; E55.9 Vitamin D deficiency, unspecified; I83.813 Varicose veins of bilateral lower extremities with pain
CPT/HCPCS: 99214

== ENCOUNTER 2024-02-17 10:15 | Outpatient (REF) | payer OTHER, SELFPAY ==
--- NOTE | ~2024-02-17 | MM_ITS ---
EXAMINATION: MM DIAGNOSTIC DIGITAL BREAST TOMOSYNTHESIS, BILATERAL CLINICAL INFORMATION: DCIS of the left breast status post left lumpectomy x4 and radiation therapy. Year 2 follow-up status post surgery/radiation. Patient also due for bilateral screening. COMPARISON: Mammography: Mammography: 02/15/2023, 02/08/2022, 02/13/2022, ultrasound left breast 02/13/2022, mammography 03/22/2017. Stereotactic biopsy left breast 02/15/2022 and 02/23/2022. TECHNIQUE: Digital breast tomosynthesis is performed in both the craniocaudal and mediolateral oblique views along with computer-aided detection (CAD). Synthesized 2D images are generated from the tomosynthesis. In addition to standard views, 2-D spot magnification left CC x2, and left MLO x2 views were obtained of the lumpectomy site. FINDINGS: There are scattered areas of fibroglandular density (ACR BI-RADS breast composition Category b). There are stable post lumpectomy and radiation changes in the left breast central and lateral inferior aspects. Numerous surgical clips are present, with scarring and distortion, expected from post therapy changes. No overall change in the appearance of the surgical site and parenchyma. No aggressive appearing new calcifications. No developing masses. Similar skin thickening and mild trabecular thickening. No axillary abnormalities on the left. The right breast demonstrates a stable fibronodular parenchymal pattern and appearance. There are no suspicious masses, suspicious grouped calcifications, or areas of architectural distortion in the right breast. No axillary abnormalities or skin abnormalities on the right. MM/MM tomosynthesis diagnostic BI IMPRESSION: There are no significant changes from prior study. Stable exam without evidence for malignancy recurrence or new malignancy. Benign treatment-related changes are stable in the left breast. Recommend the patient continue postoperative protocol bilateral mammography in one year, for year 3, final year. ASSESSMENT: BI-RADS BI-RADS 2 - Benign Findings RECOMMENDATION: 1 year F/U Results were provided to the patient at time of visit by the technologist. This patient's information was entered into a reminder system with a target due date for their next mammogram. Electronically signed by: Alex Kwon MD 02/17/2024 11:55 AM EDT
== END 2024-02-17 10:16 | disposition home or self-care (01) ==
LOC: HO.MAMMO 10:15
PROVIDERS: PCP Internal Medicine; Visit Provider Surgery
DX: R92.8 Other abnormal and inconclusive findings on diagnostic imaging of breast (principal)
CPT/HCPCS: 77062; 77066

== ENCOUNTER → 2024-02-17 11:00 | Outpatient (BNV) | payer OTHER, SELFPAY | PROVIDERS: PCP Internal Medicine; Visit Provider Radiology Diagnostic Radiology | DX: R92.323 Mammographic fibroglandular density, bilateral breasts (principal) | CPT/HCPCS: 77062; 77066 ==

== ENCOUNTER 2024-03-10 09:49 | Outpatient (AMB) | payer OTHER, SELFPAY ==
--- NOTE | 2024-03-10 09:59 | MHC.OFFVIS ---
Vital Signs 03/10/24 10:06 Height 5 ft 1 in Weight 215 lb BMI 40.6 BP 173/76 H Blood Pressure Location Lt brachial Position Sitting Pulse 66 Intake Visit Reasons: Breast exam, 6 month follow up Intake Note: Patient is seen in office for 6 month follow up visit, breast exam. Pt c/o: denies any concerns or changes since last visit mm:02/17/24 Dioramist Required: No Principal Java Software Engineer: Principal Java Software Engineer Present Accompanied by: Self / Same As Patient Allergies No Known Drug Allergies Allergy (Unknown, Verified 03/10/24 10:02) Unknown Medication List - Last Reconciled 03/10/24 by Emre Pittman MD atorvastatin 10 mg PO BEDTIME 90 days cholecalciferol (vitamin D3) 50 mcg PO DAILY 90 days denosumab (Prolia) 60 mg subcut [id number] diclofenac sodium 1% 2 grams topical QID letrozole 2.5 mg PO DAILY levothyroxine 37.5 mcg PO DAILY levothyroxine 137 mcg PO DAILY 90 days multivitamin 1 tab PO DAILY nitrofurantoin monohyd/m-cryst 100 mg 100 mg PO Q12H 5 days HPI Comments Details: 58-year-old female patient returning for breast cancer follow-up examination. She was diagnosed with left breast ductal carcinoma in situ in 2 lesions found on stereotactic core biopsy on 02/15/2022 and subsequently underwent a left breast lumpectomy with needle localization x3 on 03/14/2022. Pathology confirmed DCIS x2 and atypical ductal hyperplasia in 1 lesion. Margins were 4 mm on 1 cluster of DCIS, and 1.5 mm on the 2nd cluster of DCIS. A wider excision at the time of the original biopsy placed the margins well beyond 2 mm. She was subsequently evaluated by Medical Oncology (Dr. Lewis) and letrozole recommended. She completed radiation therapy at [facility] on 06/01/2022. Mammogram dated 02/17/2024 revealed postoperative changes in the left breast but no mammographic evidence of malignancy (BI-RADS 2), and follow-up diagnostic mammogram is recommended in 1 year. She feels well and denies any ongoing breast symptoms. [facility] Medical History Vertigo Impaired fasting glucose Vitamin D deficiency Obesity (BMI 30-39.9) Elevated LFTs Pure hypercholesterolemia Acquired hypothyroidism Surgical History History of lumpectomy of right breast (03/14/22) History of incisional hernia repair H/O colonoscopy History of laparoscopic appendectomy History of laparoscopic cholecystectomy (~05/18/19) Family History Father Heart disease Hypertension Hyperlipidemia Mother Hyperlipidemia Hypothyroidism Diabetes Son Down's syndrome Maternal Aunt Leukemia Maternal Aunt Brain tumor Maternal Uncle Jaw cancer Lung cancer Maternal Aunt Lung cancer Maternal Grandfather Brain cancer Social History Household Members: Spouse and Children Housing: House Are you a primary health care technician to a significant other at home: No Do you presently have visiting nurse or other home services: No Alcohol intake: current Alcohol intake frequency: does not drink Patient Tobacco Use Status: Never used Tobacco e-Cigarette/Vaping Use: Never Used Second Hand Smoke Exposure: Yes service: No Current occupational status: unemployed Cognitive needs: No Hearing needs: No Vision needs: No Female Reproductive History Menstrual Age of Menarche: 14 Review of Systems Const All systems reviewed & are unremarkable except as noted in HPI and below Denies chills, Denies fever(s), Denies headache(s), Denies poor appetite and Denies weakness ENT Denies headache(s) Card Denies chest pain, Denies irregular heart rhythm, Denies palpitations and Denies dyspnea Resp Denies cough, Denies excessive phlegm production and Denies dyspnea GI Denies abdominal pain, Denies bloating, Denies change in bowel habits, Denies constipation, Denies heartburn, Denies diarrhea, Denies nausea and Denies vomiting Denies urinary frequency and Denies nipple discharge Musc Denies back pain, Denies muscle weakness and Denies numbness Skin/Breast Denies breast swelling, Reports breast skin changes, Denies breast pain, Denies breast mass, Denies change in breast shape, Denies changing lesions, Denies nipple discharge and Denies unusual bruising Neuro Denies headache(s), Denies numbness, Denies paresthesias and Denies weakness Psych Denies anxiety and Denies depression Endo Denies palpitations Sabino/Lymph Denies lymphadenopathy Physical Exam Vital Signs: Last Vital Signs Pulse 66 03/10/24 10:06 BP 173/76 H 03/10/24 10:06 BMI result Body Mass Index 40.6 Const General: no acute distress and well developed Nutritional Appearance: well nourished Orientation/consciousness: patient oriented x3 Limitations: no limitations Chest Other: Left breast periareolar incision is clean, dry, and intact without redness or discharge. Volume loss is noted in the left breast compared to the right breast. No palpable mass, skin change, nipple discharge or enlarged lymph nodes appreciated. Right breast reveals no palpable mass, skin change, nipple discharge or enlarged lymph nodes. Chest/axillae images: 1. Incision left breast Resp Effort & Inspection: normal respiratory effort Neuro Other: Mobility Assessment: 1. 3 meter assessment time (seconds): 6 2. Gait observations: Normal balance and gait General: patient oriented x3 Extrem General: Yes no clubbing, cyanosis or edema Assessment & Plan Assessment & Plan (1) Ductal carcinoma in situ of left breast: Code(s): D05.12 - Intraductal carcinoma in situ of left breast Category: Medical Plan 58-year-old female patient found to have 2 clusters of DCIS in the left breast at the lower outer quadrant. She is status post lumpectomy needle localization. She completed radiation therapy and was started on letrozole. Her most recent mammogram dated 02/17/2024 revealed no mammographic evidence of malignancy (BI-RADS 2). And follow-up mammogram in 1 year is recommended. Examination today revealed no suspicious findings in either breast with normal postoperative changes in the left breast. I recommended follow-up examination in 6 months, sooner p.r.n.. Coding Level of Care Code Est Pt Level 3 (72961) Complex EM visit Add On G2211 Diagnoses 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.12
[2024-03-10 10:06] VITALS: BP 173/76; PULSE 66; BMI 40.6
== END 2024-03-10 10:19 | disposition home or self-care (01) ==
LOC: HO.HGS 09:49
PROVIDERS: PCP Internal Medicine; Visit Provider Surgery
DX: D05.12 Intraductal carcinoma in situ of left breast (principal)
CPT/HCPCS: 99213

== ENCOUNTER → 2024-03-10 09:49 | Outpatient (BNVA) | payer OTHER, SELFPAY | PROVIDERS: PCP Internal Medicine; Visit Provider Surgery ==

== ENCOUNTER 2024-04-21 08:57 | Outpatient (REF) | payer OTHER, SELFPAY ==
[2024-04-21 11:54] LABS: Appearance Urine Cloudy; Color Urine Yellow; Glucose Urine UA Negative (Negative); Leukocyte Esterase Urine Moderate (2+) (Negative); Nitrite Urine Negative (Negative); UMIC TRIGGER UACC YES; Urine Blood Small (1+) (Negative); Urine Ketones Negative (Negative); Urine Protein Negative (Neg-Trace)
[2024-04-21 12:14] LABS: Estimated Average Glucose 134 mg/dL; Hemoglobin A1C 156.0011 umol/L; Hemoglobin A1c % 6.3 % (<6.0); Total Hemoglobin (HGBA1C) 3449.3501 umol/L
[2024-04-21 12:18] LABS: Bacteria Urine None Seen (None Seen); Hyaline Casts Urine 0-2 /LPF (0-2); Squamous Epithelial Cell Urine 0-2 /HPF (0-2); UACC Culture Trigger YES; WBC Urine >50 /HPF (0-5)
[2024-04-21 12:42] LABS: Vitamin D 25-OH Total 24.5 ng/mL (>30)
[2024-04-21 12:48] LABS: Anion Gap 13 (12-20)
[2024-04-21 12:53] LABS: Alanine Aminotransferase 50 U/L (0-31); Alkaline Phosphatase 85 U/L (39-117); Aspartate Amino Transferase 52 U/L (5-31); Bilirubin Total 0.8 mg/dL (0.0-1.0); Blood Urea Nitrogen 12 mg/dL (9-16); Calcium 9.5 mg/dL (8.4-10.2); Carbon Dioxide 29 mmol/L (22-29); Chloride 103 mmol/L (96-108); Cholesterol 222 mg/dL (<200); Estimated Glomerular Filt Rate > 60; Glucose Fasting 91 mg/dL (60-99); HDL Cholesterol 37 mg/dL (>40); LDL Cholesterol Calculated 161 mg/dL (<100); Potassium 3.9 mmol/L (3.3-5.1); Sodium 141 mmol/L (135-145); Total Protein 7.5 g/dL (6.5-8.0); Triglycerides 121 mg/dL (<150)
== END 2024-04-21 08:58 | disposition home or self-care (01) ==
LOC: HO.WFDLDS 08:57
PROVIDERS: Visit Provider Internal Medicine
DX: R73.01 Impaired fasting glucose (principal); E78.00 Pure hypercholesterolemia, unspecified; E03.9 Hypothyroidism, unspecified; E55.9 Vitamin D deficiency, unspecified; R30.0 Dysuria
CPT/HCPCS: 36415; 80053; 80061; 81001; 82306; 83036; 84439; 84443; 87086

== ENCOUNTER 2024-04-22 09:34 | Outpatient (AMB) | payer OTHER, SELFPAY ==
[2024-04-22 09:38] VITALS: BP 118/82; PULSE 63; O2SAT 96; BMI 39.7
--- NOTE | 2024-04-22 09:38 | A.OFFPC_ITS ---
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 Required: No Accompanied by: Self / Same As Patient Allergies No Known Drug Allergies Allergy (Unknown, Verified 04/22/24 10:27) Unknown Medication List - Last Reconciled 04/22/24 by Renzo Collins MD atorvastatin 10 mg PO BEDTIME 90 days cholecalciferol (vitamin D3) 50 mcg PO DAILY 90 days denosumab (Prolia) 60 mg subcut [id number] diclofenac sodium 1% 2 grams topical QID letrozole 2.5 mg PO DAILY levothyroxine 137 mcg PO DAILY 90 days multivitamin 1 tab PO DAILY Tobacco use date assessed: 04/22/24 Dental Screening Dental Screen Date: 04/22/24 Did you have a dental visit in the last 12 months?: Yes Did you have a dental problem in the last 6 months where you did not have access to dental care?: No Was dental information given to patient?: Patient has dentist HPI 4 Month F/U HPI Details Patient comes in today for her follow up visit States that she feels okay She denies any headaches or dizziness Denies any chest pains, no increased SOB No nausea/vomiting, no abdominal pain No change in bowel habits noted She had her follow up labs done yesterday - to discuss her results [facility] Medical History Vertigo Impaired fasting glucose Vitamin D deficiency Obesity (BMI 30-39.9) Elevated LFTs Pure hypercholesterolemia Acquired hypothyroidism Surgical History History of lumpectomy of right breast (03/14/22) History of incisional hernia repair H/O colonoscopy History of laparoscopic appendectomy History of laparoscopic cholecystectomy (~05/18/19) Family History Father Heart disease Hypertension Hyperlipidemia Mother Hyperlipidemia Hypothyroidism Diabetes Son Down's syndrome Maternal Aunt Leukemia Maternal Aunt Brain tumor Maternal Uncle Jaw cancer Lung cancer Maternal Aunt Lung cancer Maternal Grandfather Brain cancer Social History Household Members: Spouse and Children Housing: House Are you a primary childcare administrator to a significant other at home: No Do you presently have visiting nurse or other home services: No Alcohol intake: current Alcohol intake frequency: does not drink Patient Tobacco Use Status: Never used Tobacco e-Cigarette/Vaping Use: Never Used Second Hand Smoke Exposure: Yes service: No Current occupational status: unemployed Cognitive needs: No Hearing needs: No Vision needs: No Female Reproductive History Menstrual Age of Menarche: 14 Questionnaire PHQ-9 Over the last 2 weeks, how often have you been bothered by any of the following problems? 1. Little interest or pleasure in doing things: not at all 2. Feeling down, depressed, or hopeless: not at all 3. Trouble falling or staying asleep, or sleeping too much: not at all 4. Feeling tired or having little energy: not at all 5. Poor appetite or overeating: not at all 6. Feeling bad about yourself - or that you are a failure or have let yourself or your family down: not at all 7. Trouble concentrating on things, such as reading the newspaper or watching television: not at all 8. Moving or speaking so slowly that other people could have noticed. Or the opposite - being so fidgety or restless that you have been moving around a lot more than usual: not at all 9. Thoughts that you would be better off or of hurting yourself in some way: not at all Total score: 0 Depression Screening Interpretation: Negative Depression Screening Done: Yes 52536 - PHQ-9 Billing: Yes Source: Developed by Drs. Nathan Singer, Margot Dinh, Juan Russo and colleagues, with an educational toshia from [employer]. Thrive Questionnaire Date Thrive assessed: 04/22/24 I am a: Patient What is your living situation today?: I have a steady place to live Within the past 12 months, did the food you bought not last and you didn't have the money to get more?: Never true Within the past 12 months, did you worry whether your food would run out before you got money to buy more?: Never true Do you have trouble paying for medicines?: No Do you have trouble getting transportation to medical appointments?: No Do you have trouble paying your heating and electricity bill?: No Do you have trouble taking care of your child, family member or friend?: No Do you have trouble with day-to-day activities such as bathing, preparing meals, shopping, managing finances, etc.?: No Are you currently unemployed and looking for a job?: No Are you interested in more education?: No Please select the resources that you would like help with: None Currently or been in a relationship where the following occur: No concerns reported THRIVE Score: 0 AUDIT C Alcohol Use Questionnaire (AUDIT-C) 1. How often do you have a drink containing alcohol?: Never 3. How often do you have six or more drinks on one occasion?: Never Total Score: 0 Score Reviewed/Action Taken: Yes PARDEEP-7 AMB Questionnaire PARDEEP-7 Date PARDEEP - 7 assessed: 04/22/24 Feeling nervous, anxious, or on edge: 0 = Not at all Not being able to stop or control worryin = Not at all Worrying too much about different things: 0 = Not at all Trouble relaxin = Not at all Being so restless that it is hard to sit still: 0 = Not at all Becoming easily annoyed or irritable: 0 = Not at all Feeling afraid as if something awful might happen: 0 = Not at all Total PARDEEP-7 score (0-4 normal; 5-9 mild; 10-14 moderate; 15-21 severe): 0 Source: Developed by Drs. Nathan Singer, Margot Dinh, Juan Russo and colleagues, with an educational toshia from [employer]. Review of Systems Const Denies chills, Denies fatigue, Denies fever(s) and Denies headache(s) ENT Denies dysphagia, Denies dizziness, Denies otalgia, Denies headache(s), Denies odynophagia and Denies sore throat Card Denies chest pain, Denies palpitations and Denies dyspnea Resp Denies cough and Denies dyspnea GI Denies abdominal pain, Denies constipation, Denies dysphagia, Denies heartburn, Denies diarrhea, Denies nausea, Denies odynophagia and Denies vomiting Denies difficulty voiding, Denies nocturia, Denies dysuria and Denies urinary urgency Musc Denies back pain Skin/Breast Denies rash Neuro Denies dizziness and Denies headache(s) Endo Denies fatigue and Denies palpitations Sabino/Lymph Details: (+) prominent varicose veins on both lower legs, worse on the left leg Physical exam (Primary Care) Vital Signs: Last Vital Signs Pulse 63 04/22/24 09:38 BP 118/82 04/22/24 09:38 Pulse Ox 96 04/22/24 09:38 Oxygen Delivery Method Room Air 04/22/24 09:38 BMI result Body Mass Index 39.7 Tobacco/Smoking Status: Tobacco use Status Tobacco use date assessed 04/22/24 04/22/24 09:43 Patient Tobacco Use Status Never used Tobacco 04/22/24 09:43 e-Cigarette/Vaping Use Never Used 04/22/24 09:43 PHQ-9: PHQ-9 Score PHQ-9: Total score 0 04/22/24 09:43 Depression Screening Interpretation: Negative Thrive Assessment: Date of Thrive Assessment Date Thrive assessed 04/22/24 04/22/24 09:43 Currently or been in a relationship where the following occur: No concerns reported Const General: no acute distress and alert HENMT Ears: TM's normal bilaterally and EAC's normal Throat: Yes posterior oropharynx normal and Yes tonsils normal (no TP congestion) Neck Neck: Yes supple and No lymphadenopathy Thyroid: Thyroid normal Resp Auscultation: clear to auscultation bilaterally, no rales and no wheezes Cardio Rate: regular rate Rhythm: regular rhythm Heart sounds: no murmurs GI Palpation (GI): Soft to palpation and nontender Auscultation: normal bowel sounds Back/Spine/Pelvis Thoracic/Lumbar Spine: No lumbar spinal tenderness Skin Rashes: no rashes Extrem Other: (+) prominent areas of varicose veins over both lower extremities General: Yes no clubbing, cyanosis or edema Results Reviewed Results Reviewed: Laboratory Tests 04/21/24 04/21/24 08:58 09:05 Sodium 141 Potassium 3.9 Creatinine 0.88 Estimated GFR > 60 Fasting Glucose 91 Hemoglobin A1c % 6.3 H Calcium 9.5 AST 52 H ALT 50 H Triglycerides 121 Cholesterol 222 H LDL Cholesterol, Calc 161 H HDL Cholesterol 37 L 25-OH Vitamin D Total 24.5 L TSH 0.30 L Free T4 1.20 Ur Specific [place] 1.020 Urine Protein Negative Urine Glucose (UA) Negative Urine Blood Small (1+) H Urine Nitrite Negative Ur Leukocyte Esterase Moderate (2+) H Coding Level of Care Code Est Pt Level 4 (17113) Complex EM visit Add On G2211 Diagnoses Pure hypercholesterolemia E78.00 Acquired hypothyroidism E03.9 Elevated LFTs R79.89 Impaired fasting glucose R73.01 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 M85.80 Vitamin D deficiency E55.9 Varicose veins of bilateral lower extremities with pain I83.813 Obesity (BMI 30-39.9) E66.9 Additional Codes PHQ-9 - 71681 - PHQ-9 Billing: Yes ([id number]) Assessment & Plan Assessment & Plan (1) Pure hypercholesterolemia: Code(s): E78.00 - Pure hypercholesterolemia, unspecified Category: Medical Plan: Results of her labs done yesterday reviewed and discussed with patient - advised that her cholesterol levels have improved again but only minimally from previous; they are still elevated and needs to continue improving Reinforced low cholesterol diet Continue Atorvastatin 10 mg QD for now (she is still tolerating her Rx without any problems) but we are not able to increase her dose currently due to her LFTs going up from before and if this continues, we may actually be forced to HOLD her Atorvastatin Will recheck her labs and fasting lipids in 4 months for follow up (2) Acquired hypothyroidism: Code(s): E03.9 - Hypothyroidism, unspecified Category: Medical Plan: Her TSH level is currently low but her free T4 level remains normal and unchanged from previous Continue Levothyroxine 137 mcg QD Will recheck her TFTs in 4 months for follow up (3) Elevated LFTs: Code(s): R79.89 - Other specified abnormal findings of blood chemistry Category: Medical Plan: Have cautioned patient that her LFTs have again increased further from previous on her recent labs - are most likely due to a combination of her weight (even though she has lost some weight lately) and her Atorvastatin Will continue to monitor her LFTs regularly and if her LFTs go up further at her next visit, we may be forced to take her off Atorvastatin then (4) Impaired fasting glucose: Code(s): R73.01 - Impaired fasting glucose Category: Medical Plan: Her HgbA1c has gone up slightly from previous at 6.3% on her recent labs; was at 6.2% a few months ago and at 5.9% last year - she has (+) family Hx of DM (mother) Her FBS remained normal at 91 mg/dl on her labs done yesterday Reinforced low calorie diet/exercise as tolerated Will continue to monitor her blood sugar and glycemic control closely but advised that if her HgbA1c goes up any further, then she will be in diabetic territory and will likely have to start taking some Rx for her diabetes (5) Ductal carcinoma in situ of left breast: Code(s): D05.12 - Intraductal carcinoma in situ of left breast Category: Medical Plan: S/P surgical excision on 03/14/2022 (Dr. Pittman); was also positive for both estrogen and progesterone receptors and will need antiestrogen therapy after completing her treatments S/P radiation Tx (completed in 05/2022) Continue Letrozole 2.5 mg QD Follow up with oncology as scheduled (6) Osteopenia due to cancer therapy: Code(s): M85.80 - Other specified disorders of bone density and structure, unspecified site Category: Medical Plan: Continue Prolia 60 mg SQ every 6 months Patient is encouraged to continue to stay active and exercise regularly and to continue on her daily oral Calcium and Vitamin D supplements (7) Vitamin D deficiency: Code(s): E55.9 - Vitamin D deficiency, unspecified Category: Medical Plan: Improving - continue Vitamin D3 2000 units QD (8) Varicose veins of bilateral lower extremities with pain: Code(s): I83.813 - Varicose veins of bilateral lower extremities with pain Category: Medical Plan: S/P RFA on her left lower extremity, with significant improvement of her symptoms Follow up with vascular surgery as scheduled or as needed (9) Obesity (BMI 30-39.9): Code(s): E66.9 - Obesity, unspecified Category: Medical Plan: Reinforced diet/exercise as tolerated/lose weight Plan Follow up in 4 months Orders: Orders Complete Blood Count Auto Diff 4 Months D64.9 - Anemia, unspecified Free T4 (Free Thyroxine) 4 Months E03.9 - Hypothyroidism, unspecified Hemoglobin A1c 4 Months E11.9 - Type 2 diabetes mellitus without complications Vitamin B12 and Folate 4 Months E53.8 - Deficiency of other specified B group vitamins Comprehensive [place]. Panel Fast 4 Months E78.00 - Pure hypercholesterolemia, unspecified Thyroid Stimulating Hormone 4 Months E03.9 - Hypothyroidism, unspecified Lipid Panel 4 Months E78.00 - Pure hypercholesterolemia, unspecified UA CC w/rflx Micro + Cult 4 Months R30.0 - Dysuria Microalbumin, Random (w Creat) 4 Months E11.9 - Type 2 diabetes mellitus without complications Vitamin D 25-OH Total 4 Months E55.9 - Vitamin D deficiency, unspecified
== END 2024-04-22 10:43 | disposition home or self-care (01) ==
PROVIDERS: PCP Internal Medicine; Visit Provider Internal Medicine
DX: E78.00 Pure hypercholesterolemia, unspecified (principal); E03.9 Hypothyroidism, unspecified; E66.9 Obesity, unspecified; Z68.39 Body mass index [BMI] 39.0-39.9, adult; R73.01 Impaired fasting glucose; D05.12 Intraductal carcinoma in situ of left breast; M85.80 Other specified disorders of bone density and structure, unspecified site; E55.9 Vitamin D deficiency, unspecified; I83.813 Varicose veins of bilateral lower extremities with pain

== ENCOUNTER → 2024-04-22 09:34 | Outpatient (BNVA) | payer OTHER, SELFPAY | PROVIDERS: PCP Internal Medicine; Visit Provider Internal Medicine | DX: E78.00 Pure hypercholesterolemia, unspecified (principal); E03.9 Hypothyroidism, unspecified; R79.89 Other specified abnormal findings of blood chemistry; R73.01 Impaired fasting glucose; D05.12 Intraductal carcinoma in situ of left breast; Z79.811 Long term (current) use of aromatase inhibitors; M85.80 Other specified disorders of bone density and structure, unspecified site; E55.9 Vitamin D deficiency, unspecified; I83.813 Varicose veins of bilateral lower extremities with pain; E66.9 Obesity, unspecified; Z79.899 Other long term (current) drug therapy | CPT/HCPCS: 96127 ==

== ENCOUNTER 2024-08-21 08:31 | Outpatient (REF) | payer OTHER, SELFPAY ==
[2024-08-21 11:38] LABS: MANUAL DIFF FLAG NO
[2024-08-21 11:41] LABS: Basophils Absolute Auto 0.1 X10*3/uL (0.0-0.2); Basophils Percent Auto 0.9 % (0-2); Eosinophils Absolute Auto 0.2 X10*3/uL (0.0-0.4); Eosinophils Percent Auto 3.4 % (0-4); Hematocrit 43.2 % (37.0-47.0); Imm Gran Abs Auto 0.02 X10*3/uL (0.00-0.03); Imm Gran Pct Auto 0.3 % (0.0-0.4); Lymphocytes Absolute Auto 2.2 X10*3/uL (1.2-4.9); Lymphocytes Percent Auto 32.7 % (20-40); Mean Corpuscular HGB Conc 32.4 g/dl (31.0-35.0); Mean Corpuscular Volume 86.4 fL (80.0-98.0); Mean Platelet Volume 9.6 fL (9.4-12.3); Monocytes Absolute Auto 0.6 X10*3/uL (0.1-1.2); Monocytes Percent Auto 8.8 % (2-11); Neutrophils Absolute Auto 3.7 x10*3/uL (2.0-8.3); Neutrophils Percent Auto 53.9 % (45-73); Platelet Count 282 X10*3/uL (160-400); Red Cell Distribution Width 13.3 % (11.0-16.0); White Blood Count 6.8 X10*3/uL (4.8-10.8)
[2024-08-21 12:00] LABS: Estimated Average Glucose 131 mg/dL; Hemoglobin A1c % 6.2 % (<6.0); Total Hemoglobin (HGBA1C) 3728.3613 umol/L
[2024-08-21 12:02] LABS: Appearance Urine Clear; Color Urine Yellow; Glucose Urine UA Negative (Negative); Leukocyte Esterase Urine Moderate (2+) (Negative); Nitrite Urine Negative (Negative); Specific Gravity - Urine 1.025 (1.005-1.025); UMIC TRIGGER UACC YES; Urine Blood Small (1+) (Negative); Urine Ketones Trace mg/dL (Negative); Urine Protein Trace mg/dL (Neg-Trace)
[2024-08-21 12:11] LABS: Alanine Aminotransferase 45 U/L (0-31); Alkaline Phosphatase 94 U/L (39-117); Anion Gap 11 (12-20); Aspartate Amino Transferase 50 U/L (5-31); Bilirubin Total 0.8 mg/dL (0.0-1.0); Blood Urea Nitrogen 13 mg/dL (9-16); Calcium 9.3 mg/dL (8.4-10.2); Carbon Dioxide 27 mmol/L (22-29); Chloride 105 mmol/L (96-108); Cholesterol 188 mg/dL (<200); Estimated Glomerular Filt Rate > 60; Glucose Fasting 98 mg/dL (60-99); HDL Cholesterol 40 mg/dL (>40); LDL Cholesterol Calculated 119 mg/dL (<100); Potassium 4.3 mmol/L (3.3-5.1); Sodium 139 mmol/L (135-145); Total Protein 7.2 g/dL (6.5-8.0); Triglycerides 146 mg/dL (<150)
[2024-08-21 12:28] LABS: Folate 7.8 ng/mL (> or = 4.0); Vitamin B12 624 pg/mL (200-900)
[2024-08-21 12:31] LABS: Free T4 (Free Thyroxine) 1.37 ng/dL (0.71-1.85); Thyroid Stimulating Hormone 0.09 uIU/mL (0.32-4.0)
[2024-08-21 12:37] LABS: Bacteria Urine None Seen (None Seen); Hyaline Casts Urine 0-2 /LPF (0-2); UACC Culture Trigger YES; WBC Urine 21-50 /HPF (0-5)
== END 2024-08-21 08:32 | disposition home or self-care (01) ==
LOC: HO.WFDLDS 08:31
PROVIDERS: Visit Provider Internal Medicine
DX: D64.9 Anemia, unspecified (principal); E03.9 Hypothyroidism, unspecified; E78.00 Pure hypercholesterolemia, unspecified; E11.9 Type 2 diabetes mellitus without complications; E55.9 Vitamin D deficiency, unspecified; E53.8 Deficiency of other specified B group vitamins; R30.0 Dysuria
CPT/HCPCS: 36415; 80053; 80061; 81001; 81003; 82043; 82306; 82570; 82607; 82746; 83036; 84439; 84443; 85025; 87086

== ENCOUNTER 2024-08-24 10:28 | Outpatient (AMB) | payer OTHER, SELFPAY ==
[2024-08-24 10:38] VITALS: BP 124/72; PULSE 80; O2SAT 96; BMI 40.1
--- NOTE | 2024-08-24 10:38 | A.OFFPC_ITS ---
Vital Signs 08/24/24 10:38 Height 5 ft 1 in Weight 212 lb BMI 40.1 BP 124/72 Blood Pressure Location Lt brachial Position Sitting Pulse 80 Pulse Source Pulse Oximeter Pulse Oximetry (%) 96 Oxygen Delivery Method Room Air Intake Visit Reasons: DM, hyperlipidemia, elevated LFTs, hypothyroidism Banking Manager Required: No Accompanied by: Self / Same As Patient Allergies No Known Drug Allergies Allergy (Unknown, Verified 08/24/24 11:10) Unknown Medication List - Last Reconciled 08/24/24 by Renzo Collins MD atorvastatin 10 mg PO BEDTIME 90 days cholecalciferol (vitamin D3) 50 mcg PO DAILY 90 days denosumab (Prolia) 60 mg subcut [id number] diclofenac sodium 1% 2 grams topical QID letrozole 2.5 mg PO DAILY levothyroxine 137 mcg PO DAILY 90 days multivitamin 1 tab PO DAILY Tobacco use date assessed: 08/24/24 Dental Screening Dental Screen Date: 08/24/24 Did you have a dental visit in the last 12 months?: Yes Did you have a dental problem in the last 6 months where you did not have access to dental care?: No Was dental information given to patient?: Patient has dentist HPI DM, hyperlipidemia, elevated LFTs, hypothyroidism HPI Details Patient comes in today for her follow up visit States that she feels okay She denies any headaches or dizziness Denies any chest pains, no increased SOB No nausea/vomiting, no abdominal pain No change in bowel habits noted Adds that she has been experiencing symptoms of dysuria and urgency lately and has noticed a very strong odor to her urine for the past few days and is wondering if her recent urinalysis showed any evidence of a UTI She had her follow up labs done a few days ago - to discuss her results [facility] Medical History Vertigo Impaired fasting glucose Vitamin D deficiency Obesity (BMI 30-39.9) Elevated LFTs Pure hypercholesterolemia Acquired hypothyroidism Surgical History History of lumpectomy of right breast (03/14/22) History of incisional hernia repair H/O colonoscopy History of laparoscopic appendectomy History of laparoscopic cholecystectomy (~05/18/19) Family History Father Heart disease Hypertension Hyperlipidemia Mother Hyperlipidemia Hypothyroidism Diabetes Son Down's syndrome Maternal Aunt Leukemia Maternal Aunt Brain tumor Maternal Uncle Jaw cancer Lung cancer Maternal Aunt Lung cancer Maternal Grandfather Brain cancer Social History Household Members: Spouse and Children Housing: House Are you a primary clinical care manager to a significant other at home: No Do you presently have visiting nurse or other home services: No Alcohol intake: current Alcohol intake frequency: does not drink Patient Tobacco Use Status: Never used Tobacco e-Cigarette/Vaping Use: Never Used Second Hand Smoke Exposure: Yes service: No Current occupational status: unemployed Cognitive needs: No Hearing needs: No Vision needs: No Female Reproductive History Menstrual Age of Menarche: 14 Questionnaire PHQ-9 Over the last 2 weeks, how often have you been bothered by any of the following problems? 1. Little interest or pleasure in doing things: not at all 2. Feeling down, depressed, or hopeless: not at all 3. Trouble falling or staying asleep, or sleeping too much: not at all 4. Feeling tired or having little energy: not at all 5. Poor appetite or overeating: not at all 6. Feeling bad about yourself - or that you are a failure or have let yourself or your family down: not at all 7. Trouble concentrating on things, such as reading the newspaper or watching television: not at all 8. Moving or speaking so slowly that other people could have noticed. Or the opposite - being so fidgety or restless that you have been moving around a lot more than usual: not at all 9. Thoughts that you would be better off or of hurting yourself in some way: not at all Total score: 0 Depression Screening Interpretation: Negative Depression Screening Done: Yes 86115 - PHQ-9 Billing: Yes Source: Developed by Drs. Nathan Singer, Margot Dinh, Juan Russo and colleagues, with an educational toshia from [employer]. Thrive Questionnaire Date Thrive assessed: 08/24/24 I am a: Patient What is your living situation today?: I have a steady place to live Within the past 12 months, did the food you bought not last and you didn't have the money to get more?: Never true Within the past 12 months, did you worry whether your food would run out before you got money to buy more?: Never true Do you have trouble paying for medicines?: No Do you have trouble getting transportation to medical appointments?: No Do you have trouble paying your heating and electricity bill?: No Do you have trouble taking care of your child, family member or friend?: No Do you have trouble with day-to-day activities such as bathing, preparing meals, shopping, managing finances, etc.?: No Are you currently unemployed and looking for a job?: No Are you interested in more education?: No Please select the resources that you would like help with: None Currently or been in a relationship where the following occur: No concerns reported THRIVE Score: 0 AUDIT C Alcohol Use Questionnaire (AUDIT-C) 1. How often do you have a drink containing alcohol?: Never 3. How often do you have six or more drinks on one occasion?: Never Total Score: 0 Score Reviewed/Action Taken: Yes PARDEEP-7 AMB Questionnaire PARDEEP-7 Date PARDEEP - 7 assessed: 08/24/24 Feeling nervous, anxious, or on edge: 0 = Not at all Not being able to stop or control worryin = Not at all Worrying too much about different things: 0 = Not at all Trouble relaxin = Not at all Being so restless that it is hard to sit still: 0 = Not at all Becoming easily annoyed or irritable: 0 = Not at all Feeling afraid as if something awful might happen: 0 = Not at all Total PARDEEP-7 score (0-4 normal; 5-9 mild; 10-14 moderate; 15-21 severe): 0 Source: Developed by Drs. Nathan Singer, Margot Dinh, Juan vega nd colleagues, with an educational toshia from [employer]. Review of Systems Const Denies chills, Denies fatigue, Denies fever(s) and Denies headache(s) ENT Denies dysphagia, Denies dizziness, Denies otalgia, Denies headache(s), Denies odynophagia and Denies sore throat Card Denies chest pain, Denies palpitations and Denies dyspnea Resp Denies cough and Denies dyspnea GI Denies abdominal pain, Denies constipation, Denies dysphagia, Denies heartburn, Denies diarrhea, Denies nausea, Denies odynophagia and Denies vomiting Denies difficulty voiding, Reports nocturia, Reports dysuria (mild) and Reports urinary urgency Musc Denies back pain Skin/Breast Denies rash Neuro Denies dizziness and Denies headache(s) Endo Denies fatigue and Denies palpitations Sabino/Lymph Details: (+) prominent varicose veins on both lower legs, worse on the left leg Physical exam (Primary Care) Vital Signs: Last Vital Signs Pulse 80 08/24/24 10:38 BP 124/72 08/24/24 10:38 Pulse Ox 96 08/24/24 10:38 Oxygen Delivery Method Room Air 08/24/24 10:38 BMI result Body Mass Index 40.1 Tobacco/Smoking Status: Tobacco use Status Tobacco use date assessed 08/24/24 08/24/24 10:39 Patient Tobacco Use Status Never used Tobacco 08/24/24 10:39 e-Cigarette/Vaping Use Never Used 08/24/24 10:39 PHQ-9: PHQ-9 Score PHQ-9: Total score 0 08/24/24 10:39 Depression Screening Interpretation: Negative Thrive Assessment: Date of Thrive Assessment Date Thrive assessed 08/24/24 08/24/24 10:39 Currently or been in a relationship where the following occur: No concerns reported Const General: no acute distress and alert HENMT Ears: TM's normal bilaterally and EAC's normal Throat: Yes posterior oropharynx normal and Yes tonsils normal (no TP congestion) Neck Neck: Yes supple and No lymphadenopathy Thyroid: Thyroid normal Resp Auscultation: clear to auscultation bilaterally, no rales and no wheezes Cardio Rate: regular rate Rhythm: regular rhythm Heart sounds: no murmurs GI Palpation (GI): Soft to palpation and nontender Auscultation: normal bowel sounds Back/Spine/Pelvis Thoracic/Lumbar Spine: No lumbar spinal tenderness Skin Rashes: no rashes Extrem Other: (+) prominent areas of varicose veins over both lower extremities General: Yes no clubbing, cyanosis or edema Results Reviewed Results Reviewed: Laboratory Tests 08/21/24 08/21/24 08:32 08:38 WBC 6.8 Hgb 14.0 Hct 43.2 Plt Count 282 Sodium 139 Potassium 4.3 Creatinine 0.74 Estimated GFR > 60 Fasting Glucose 98 Hemoglobin A1c % 6.2 H Calcium 9.3 AST 50 H ALT 45 H Triglycerides 146 Cholesterol 188 LDL Cholesterol, Calc 119 H HDL Cholesterol 40 L Vitamin B12 624 25-OH Vitamin D Total 31.0 TSH 0.09 L Free T4 1.37 Ur Specific [place] 1.025 Urine Protein Trace Urine Glucose (UA) Negative Urine Blood Small (1+) H Urine Nitrite Negative Ur Leukocyte Esterase Moderate (2+) H Microalb/Creat Ratio 42.0 H Coding Level of Care Code Est Pt Level 4 (13995) Diagnoses Pure hypercholesterolemia E78.00 Acquired hypothyroidism E03.9 Elevated LFTs R79.89 Impaired fasting glucose R73.01 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 M85.80 Vitamin D deficiency E55.9 Varicose veins of bilateral lower extremities with pain I83.813 Dysuria R30.0 Obesity (BMI 30-39.9) E66.9 Additional Codes PHQ-9 - 82322 - PHQ-9 Billing: Yes ([id number]) Assessment & Plan Assessment & Plan (1) Pure hypercholesterolemia: Code(s): E78.00 - Pure hypercholesterolemia, unspecified Category: Medical Plan: Results of her labs done a few days ago reviewed and discussed with patient - she is advised that her cholesterol levels have improved significantly from previous Reinforced low cholesterol diet Continue Atorvastatin 10 mg QD Will continue to hold off on increasing her dose as her LFTs are still elevated although they have not gotten any worse from before Will recheck her labs and fasting lipids in 4 months for follow up (2) Acquired hypothyroidism: Code(s): E03.9 - Hypothyroidism, unspecified Category: Medical Plan: Her serum TSH level is still suppressed but free T4 remains normal on her recent labs Continue Levothyroxine 137 mcg QD Will recheck her TFTs in 4 months for follow up (3) Elevated LFTs: Code(s): R79.89 - Other specified abnormal findings of blood chemistry Category: Medical Plan: Patient's LFTs are still elevated on her recent labs but they have not increased any further from previous - these are again most likely due to a combination of her weight (hepatosteatosis) and her Atorvastatin Rx Will continue to monitor her LFTs regularly (4) Impaired fasting glucose: Code(s): R73.01 - Impaired fasting glucose Category: Medical Plan: Her HgbA1c was at 6.2% on her recent labs (she was at 6.3% a few months ago) Her FBS remained normal at 98 mg/dl on her recent labs Reinforced low calorie/low carb diet; exercise as tolerated Will continue to monitor her blood sugar and glycemic control closely (5) Ductal carcinoma in situ of left breast: Code(s): D05.12 - Intraductal carcinoma in situ of left breast Category: Medical Plan: S/P surgical excision on 03/14/2022 (Dr. Pittman); she was also positive for both estrogen and progesterone receptors and will need antiestrogen therapy after completing her treatments S/P radiation Tx (completed in 05/2022) Continue Letrozole 2.5 mg QD Follow up with oncology as scheduled for continuing surveillance (6) Osteopenia due to cancer therapy: Code(s): M85.80 - Other specified disorders of bone density and structure, unspecified site Category: Medical Plan: Continue Prolia 60 mg SQ every 6 months Patient is again encouraged to continue to stay active and exercise regularly and to continue on her daily oral Calcium and Vitamin D supplements (7) Vitamin D deficiency: Code(s): E55.9 - Vitamin D deficiency, unspecified Category: Medical Plan: Corrected - continue Vitamin D3 2000 units QD (8) Varicose veins of bilateral lower extremities with pain: Code(s): I83.813 - Varicose veins of bilateral lower extremities with pain Category: Medical Plan: S/P RFA on her left lower extremity, with significant improvement of her symptoms Follow up with vascular surgery as scheduled or as needed (9) Dysuria: Code(s): R30.0 - Dysuria Category: Medical Plan: Patient states that she has been experiencing increased burning sensation in urination and (+) urinary urgency over the past few days Have advised her that her recent urinalysis was (+) for leukocytes but her urine culture revealed (+) mixed maría As she has been experiencing (+) urinary symptoms, will go ahead and treat her empirically with Macrobid 100 mg BID x 7 days She is encouraged to increase her oral fluid intake as well to help clear up her UTI quicker and more effectively (10) Obesity (BMI 30-39.9): Code(s): E66.9 - Obesity, unspecified Category: Medical Plan: Reinforced diet/exercise as tolerated/lose weight Plan Follow up in 4 months Orders: Orders UA CC w/rflx Micro + Cult 4 Months R30.0 - Dysuria Vitamin D 25-OH Total 4 Months E55.9 - Vitamin D deficiency, unspecified Free T4 (Free Thyroxine) 4 Months E03.9 - Hypothyroidism, unspecified Lipid Panel 4 Months E78.00 - Pure hypercholesterolemia, unspecified Hemoglobin A1c 4 Months R73.01 - Impaired fasting glucose Complete Blood Count Auto Diff 4 Months D64.9 - Anemia, unspecified Comprehensive [place]. Panel Fast 4 Months E78.00 - Pure hypercholesterolemia, unspecified Thyroid Stimulating Hormone 4 Months E03.9 - Hypothyroidism, unspecified Medications: New nitrofurantoin monohyd/m-cryst 100 mg (Macrobid) must administer with a meal/food 100 mg PO Q12H 7 days 14 caps 0RF
== END 2024-08-24 11:20 | disposition home or self-care (01) ==
PROVIDERS: PCP Internal Medicine; Visit Provider Internal Medicine
DX: E78.00 Pure hypercholesterolemia, unspecified (principal); E03.9 Hypothyroidism, unspecified; E66.9 Obesity, unspecified; Z68.41 Body mass index [BMI] 40.0-44.9, adult; R79.89 Other specified abnormal findings of blood chemistry; R73.01 Impaired fasting glucose; D05.12 Intraductal carcinoma in situ of left breast; M85.80 Other specified disorders of bone density and structure, unspecified site; E55.9 Vitamin D deficiency, unspecified; I83.813 Varicose veins of bilateral lower extremities with pain; R30.0 Dysuria

== ENCOUNTER → 2024-08-24 10:28 | Outpatient (BNVA) | payer OTHER, SELFPAY | PROVIDERS: PCP Internal Medicine; Visit Provider Internal Medicine | DX: E78.00 Pure hypercholesterolemia, unspecified (principal); E03.9 Hypothyroidism, unspecified; R79.89 Other specified abnormal findings of blood chemistry; R73.01 Impaired fasting glucose; D05.12 Intraductal carcinoma in situ of left breast; M85.80 Other specified disorders of bone density and structure, unspecified site; E55.9 Vitamin D deficiency, unspecified; I83.813 Varicose veins of bilateral lower extremities with pain; R30.0 Dysuria; E66.9 Obesity, unspecified; Z68.41 Body mass index [BMI] 40.0-44.9, adult; Z79.811 Long term (current) use of aromatase inhibitors; Z79.899 Other long term (current) drug therapy | CPT/HCPCS: 96127 ==

== ENCOUNTER 2024-12-03 09:46 | Outpatient (AMB) | payer OTHER, SELFPAY ==
--- NOTE | 2024-12-03 09:45 | MHC.OFFVIS ---
Vital Signs 12/03/24 09:49 Height 5 ft 1 in Weight 215 lb BMI 40.6 BP 143/67 H Blood Pressure Location Lt brachial Position Sitting Pulse 56 Intake Visit Reasons: 6 month follow up breast exam Intake Note: Patient is seen in office for 6 month follow up visit, breast exam. Pt c/o:denies any concerns regarding the breast mm sched:02/17/25 Girls Tennis Coach Required: No Oven Tender Bagels: Oven Tender Bagels Present Accompanied by: Family/Other Allergies No Known Drug Allergies Allergy (Unknown, Verified 12/03/24 09:48) Unknown Medication List - Last Reconciled 12/03/24 by Emre Pittman MD atorvastatin 10 mg PO BEDTIME 90 days cholecalciferol (vitamin D3) 50 mcg PO DAILY 90 days denosumab (Prolia) 60 mg subcut [id number] diclofenac sodium 1% 2 grams topical QID letrozole 2.5 mg PO DAILY levothyroxine 137 mcg PO DAILY 90 days multivitamin 1 tab PO DAILY nitrofurantoin monohyd/m-cryst 100 mg (Macrobid) 100 mg PO Q12H 7 days HPI Comments Details: 59-year-old female patient returning for breast cancer follow-up examination. She was diagnosed with left breast ductal carcinoma in situ in 2 lesions found on stereotactic core biopsy on 02/15/2022 and subsequently underwent a left breast lumpectomy with needle localization x3 on 03/14/2022. Pathology confirmed DCIS x2 and atypical ductal hyperplasia in 1 lesion. Margins were 4 mm on 1 cluster of DCIS, and 1.5 mm on the 2nd cluster of DCIS. A wider excision at the time of the original biopsy placed the margins well beyond 2 mm. She was subsequently evaluated by Medical Oncology (Dr. Lewis) and letrozole recommended. She completed radiation therapy at [facility] on 06/01/2022. Mammogram dated 02/17/2024 revealed postoperative changes in the left breast but no mammographic evidence of malignancy (BI-RADS 2), and follow-up diagnostic mammogram is recommended in 1 year. She feels well and denies any ongoing breast symptoms. [facility] Medical History Vertigo Impaired fasting glucose Vitamin D deficiency Obesity (BMI 30-39.9) Elevated LFTs Pure hypercholesterolemia Acquired hypothyroidism Surgical History History of lumpectomy of right breast (03/14/22) History of incisional hernia repair H/O colonoscopy History of laparoscopic appendectomy History of laparoscopic cholecystectomy (~05/18/19) Family History Father Heart disease Hypertension Hyperlipidemia Mother Hyperlipidemia Hypothyroidism Diabetes Son Down's syndrome Maternal Aunt Leukemia Maternal Aunt Brain tumor Maternal Uncle Jaw cancer Lung cancer Maternal Aunt Lung cancer Maternal Grandfather Brain cancer Social History Household Members: Spouse and Children Housing: House Are you a primary pharmacy customer care specialist to a significant other at home: No Do you presently have visiting nurse or other home services: No Alcohol intake: current Alcohol intake frequency: does not drink Patient Tobacco Use Status: Never used Tobacco e-Cigarette/Vaping Use: Never Used Second Hand Smoke Exposure: Yes service: No Current occupational status: unemployed Cognitive needs: No Hearing needs: No Vision needs: No Female Reproductive History Menstrual Age of Menarche: 14 Review of Systems Const All systems reviewed & are unremarkable except as noted in HPI and below Denies chills, Denies fever(s), Denies headache(s), Denies poor appetite and Denies weakness ENT Denies headache(s) Card Denies chest pain, Denies irregular heart rhythm, Denies palpitations and Denies dyspnea Resp Denies cough, Denies excessive phlegm production and Denies dyspnea GI Denies abdominal pain, Denies bloating, Denies change in bowel habits, Denies constipation, Denies heartburn, Denies diarrhea, Denies nausea and Denies vomiting Denies urinary frequency and Denies nipple discharge Musc Denies back pain, Denies muscle weakness and Denies numbness Skin/Breast Denies breast swelling, Reports breast skin changes, Denies breast pain, Denies breast mass, Denies change in breast shape, Denies changing lesions, Denies nipple discharge and Denies unusual bruising Neuro Denies headache(s), Denies numbness, Denies paresthesias and Denies weakness Psych Denies anxiety and Denies depression Endo Denies palpitations Sabino/Lymph Denies lymphadenopathy Physical Exam Const General: no acute distress and well developed Nutritional Appearance: well nourished Orientation/consciousness: patient oriented x3 Limitations: no limitations Chest Other: Left breast periareolar incision is clean, dry, and intact without redness or discharge. Volume loss is noted in the left breast compared to the right breast. No palpable mass, skin change, nipple discharge or enlarged lymph nodes appreciated. Right breast reveals no palpable mass, skin change, nipple discharge or enlarged lymph nodes. Resp Effort & Inspection: normal respiratory effort Neuro Other: Mobility Assessment: 1. 3 meter assessment time (seconds): 6 2. Gait observations: Normal balance and gait General: patient oriented x3 Extrem General: Yes no clubbing, cyanosis or edema Assessment & Plan Assessment & Plan (1) Ductal carcinoma in situ of left breast: Code(s): D05.12 - Intraductal carcinoma in situ of left breast Category: Medical Plan 59-year-old female patient found to have 2 clusters of DCIS in the left breast at the lower outer quadrant. She is status post lumpectomy needle localization on 03/14/2022. She completed radiation therapy and was started on letrozole, which she is tolerating well. Her most recent mammogram dated 02/17/2024 revealed no mammographic evidence of malignancy (BI-RADS 2) and follow-up mammogram in 1 year is recommended. Examination today revealed no suspicious findings in either breast with normal postoperative changes in the left breast. I recommended follow-up examination in 6 months, sooner p.r.n.. 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
[2024-12-03 09:49] VITALS: BP 143/67; PULSE 56; BMI 40.6
== END 2024-12-03 10:04 | disposition home or self-care (01) ==
LOC: HO.HGS 09:47
PROVIDERS: PCP Internal Medicine; Visit Provider Surgery
DX: D05.12 Intraductal carcinoma in situ of left breast (principal)
CPT/HCPCS: 99213; G2211

== ENCOUNTER 2024-12-23 08:26 | Outpatient (REF) | payer OTHER, SELFPAY ==
[2024-12-23 11:25] LABS: MANUAL DIFF FLAG NO
[2024-12-23 11:29] LABS: Appearance Urine Turbid; Glucose Urine UA Negative (Negative); PH 5.5 (5.0-9.0); Specific Gravity - Urine 1.020 (1.005-1.025); UMIC TRIGGER UACC YES
[2024-12-23 11:31] LABS: Hematocrit 42.8 % (37.0-47.0); Hemoglobin 13.5 g/dl (12.0-16.0); Imm Gran Abs Auto 0.02 X10*3/uL (0.00-0.03); Imm Gran Pct Auto 0.3 % (0.0-0.4); Lymphocytes Absolute Auto 2.3 X10*3/uL (1.2-4.9); Mean Corpuscular HGB Conc 31.5 g/dl (31.0-35.0); Mean Corpuscular Hemoglobin 27.6 pg (27.0-33.0); Mean Corpuscular Volume 87.3 fL (80.0-98.0); NRBC Abs Auto 0.000 X10*3/uL (0.0-0.012); NRBC Pct Auto 0.0 /100WBC (0.0-0.2); Platelet Count 267 X10*3/uL (160-400); Red Blood Count 4.90 X10*6/uL (4.20-5.50); White Blood Count 6.3 X10*3/uL (4.8-10.8)
[2024-12-23 11:40] LABS: UACC Culture Trigger YES
[2024-12-23 12:05] LABS: Alanine Aminotransferase 30 U/L (0-31); Albumin Level 4.2 g/dL (3.5-5.0); Alkaline Phosphatase 64 U/L (39-117); Anion Gap 11 (12-20); Aspartate Amino Transferase 44 U/L (5-31); Blood Urea Nitrogen 10 mg/dL (9-16); Calcium 8.7 mg/dL (8.4-10.2); Carbon Dioxide 27 mmol/L (22-29); Chloride 106 mmol/L (96-108); Cholesterol 219 mg/dL (<200); Estimated Glomerular Filt Rate > 60; HDL Cholesterol 36 mg/dL (>40); Potassium 4.2 mmol/L (3.3-5.1); Sodium 140 mmol/L (135-145); Total Protein 7.2 g/dL (6.5-8.0); Triglycerides 129 mg/dL (<150)
[2024-12-23 12:10] LABS: Free T4 (Free Thyroxine) 1.33 ng/dL (0.71-1.85); Thyroid Stimulating Hormone 2.00 uIU/mL (0.32-4.0)
[2024-12-23 12:15] LABS: Hemoglobin A1C 158.3944 umol/L; Total Hemoglobin (HGBA1C) 3594.2012 umol/L
== END 2024-12-23 08:27 | disposition home or self-care (01) ==
LOC: HO.WFDLDS 08:26
PROVIDERS: Referring Provider Internal Medicine Medical Oncology; Visit Provider Internal Medicine
DX: R73.01 Impaired fasting glucose (principal); D64.9 Anemia, unspecified; E78.00 Pure hypercholesterolemia, unspecified; E03.9 Hypothyroidism, unspecified; E55.9 Vitamin D deficiency, unspecified; R30.0 Dysuria; M85.80 Other specified disorders of bone density and structure, unspecified site
CPT/HCPCS: 36415; 80053; 80061; 81001; 82306; 83036; 84439; 84443; 85025; 87086

== ENCOUNTER 2024-12-25 09:41 | Outpatient (AMB) | payer OTHER, SELFPAY ==
[2024-12-25 09:47] VITALS: BP 124/82; PULSE 55; O2SAT 97; BMI 40.6
--- NOTE | 2024-12-25 09:47 | A.OFFPC_ITS ---
Vital Signs 12/25/24 09:47 Height 5 ft 1 in Weight 215 lb 2 oz BMI 40.6 BP 124/82 Blood Pressure Location Lt brachial Position Sitting Pulse 55 Pulse Source Pulse Oximeter Pulse Oximetry (%) 97 Oxygen Delivery Method Room Air Intake Visit Reasons: Follow Up Inventory Control/Shipping Receiving Required: No Accompanied by: Self / Same As Patient Allergies No Known Drug Allergies Allergy (Unknown, Verified 12/25/24 10:31) Unknown Medication List - Last Reconciled 12/25/24 by Renzo Collins MD atorvastatin 10 mg PO BEDTIME 90 days cholecalciferol (vitamin D3) 50 mcg PO DAILY 90 days denosumab (Prolia) 60 mg subcut [id number] diclofenac sodium 1% 2 grams topical QID letrozole 2.5 mg PO DAILY levothyroxine 137 mcg PO DAILY 90 days multivitamin 1 tab PO DAILY nitrofurantoin monohyd/m-cryst 100 mg (Macrobid) 100 mg PO Q12H 7 days Tobacco use date assessed: 12/25/24 Dental Screening Dental Screen Date: 12/25/24 Did you have a dental visit in the last 12 months?: Yes Did you have a dental problem in the last 6 months where you did not have access to dental care?: No Was dental information given to patient?: Patient has dentist HPI Follow Up HPI Details Patient comes in today for her follow-up visit States that she feels okay She denies any headaches or dizziness Denies any chest pains, no shortness of breath No nausea/vomiting, no abdominal pain No change in bowel habits noted Needs her vitamin-D Rx refilled She had her follow-up labs done a couple of days ago - to discuss her results [facility] Medical History Vertigo Impaired fasting glucose Vitamin D deficiency Obesity (BMI 30-39.9) Elevated LFTs Pure hypercholesterolemia Acquired hypothyroidism Surgical History History of lumpectomy of right breast (03/14/22) History of incisional hernia repair H/O colonoscopy History of laparoscopic appendectomy History of laparoscopic cholecystectomy (~05/18/19) Family History Father Heart disease Hypertension Hyperlipidemia Mother Hyperlipidemia Hypothyroidism Diabetes Son Down's syndrome Maternal Aunt Leukemia Maternal Aunt Brain tumor Maternal Uncle Jaw cancer Lung cancer Maternal Aunt Lung cancer Maternal Grandfather Brain cancer Social History Household Members: Spouse and Children Housing: House Are you a primary customer care manager to a significant other at home: No Do you presently have visiting nurse or other home services: No Alcohol intake: current Alcohol intake frequency: does not drink Patient Tobacco Use Status: Never used Tobacco e-Cigarette/Vaping Use: Never Used Second Hand Smoke Exposure: Yes service: No Current occupational status: unemployed Cognitive needs: No Hearing needs: No Vision needs: No Female Reproductive History Menstrual Age of Menarche: 14 Questionnaire PHQ-9 Over the last 2 weeks, how often have you been bothered by any of the following problems? 1. Little interest or pleasure in doing things: not at all 2. Feeling down, depressed, or hopeless: not at all 3. Trouble falling or staying asleep, or sleeping too much: not at all 4. Feeling tired or having little energy: not at all 5. Poor appetite or overeating: not at all 6. Feeling bad about yourself - or that you are a failure or have let yourself or your family down: not at all 7. Trouble concentrating on things, such as reading the newspaper or watching television: not at all 8. Moving or speaking so slowly that other people could have noticed. Or the opp osite - being so fidgety or restless that you have been moving around a lot more than usual: not at all 9. Thoughts that you would be better off or of hurting yourself in some way: not at all Total score: 0 Depression Screening Interpretation: Negative Depression Screening Done: Yes 16370 - PHQ-9 Billing: Yes Source: Developed by Drs. Nathan Singer, Margot Dinh, Juan Russo and colleagues, with an educational toshia from [employer]. Thrive Questionnaire Date Thrive assessed: 12/25/24 I am a: Patient What is your living situation today?: I have a steady place to live Within the past 12 months, did the food you bought not last and you didn't have the money to get more?: Never true Within the past 12 months, did you worry whether your food would run out before you got money to buy more?: Never true Do you have trouble paying for medicines?: No Do you have trouble getting transportation to medical appointments?: No Do you have trouble paying your heating and electricity bill?: No Do you have trouble taking care of your child, family member or friend?: No Do you have trouble with day-to-day activities such as bathing, preparing meals, shopping, managing finances, etc.?: No Are you currently unemployed and looking for a job?: No Are you interested in more education?: No Please select the resources that you would like help with: None Currently or been in a relationship where the following occur: No concerns reported THRIVE Score: 0 AUDIT C Alcohol Use Questionnaire (AUDIT-C) 1. How often do you have a drink containing alcohol?: Never 3. How often do you have six or more drinks on one occasion?: Never Total Score: 0 Score Reviewed/Action Taken: Yes PARDEEP-7 AMB Questionnaire PARDEEP-7 Date PARDEEP - 7 assessed: 12/25/24 Feeling nervous, anxious, or on edge: 0 = Not at all Not being able to stop or control worryin = Not at all Worrying too much about different things: 0 = Not at all Trouble relaxin = Not at all Being so restless that it is hard to sit still: 0 = Not at all Becoming easily annoyed or irritable: 0 = Not at all Feeling afraid as if something awful might happen: 0 = Not at all Total PARDEEP-7 score (0-4 normal; 5-9 mild; 10-14 moderate; 15-21 severe): 0 Source: Developed by Drs. Nathan Singer, Margot Dinh, Juan Russo and colleagues, with an educational toshia from [employer]. Review of Systems Const Denies chills, Denies fatigue, Denies fever(s) and Denies headache(s) ENT Denies dysphagia, Denies dizziness, Denies otalgia, Denies headache(s), Denies neck pain, Denies odynophagia and Denies sore throat Card Denies chest pain, Denies palpitations and Denies dyspnea Resp Denies chest congestion, Denies cough and Denies dyspnea GI Denies abdominal pain, Denies constipation, Denies dysphagia, Denies heartburn, Denies diarrhea, Denies nausea, Denies odynophagia and Denies vomiting Denies difficulty voiding, Denies nocturia and Denies dysuria (mild) Musc Denies back pain and Denies neck pain Skin/Breast Denies rash Neuro Denies dizziness and Denies headache(s) Endo Denies fatigue and Denies palpitations Sabino/Lymph Details: (+) prominent varicose veins on both lower legs, worse on the left leg Physical exam (Primary Care) Vital Signs: Last Vital Signs Pulse 55 12/25/24 09:47 BP 124/82 12/25/24 09:47 Pulse Ox 97 12/25/24 09:47 Oxygen Delivery Method Room Air 12/25/24 09:47 BMI result Body Mass Index 40.6 Tobacco/Smoking Status: Tobacco use Status Tobacco use date assessed 12/25/24 12/25/24 09:50 Patient Tobacco Use Status Never used Tobacco 12/25/24 09:50 e-Cigarette/Vaping Use Never Used 12/25/24 09:50 PHQ-9: PHQ-9 Score PHQ-9: Total score 0 12/25/24 10:34 Depression Screening Interpretation: Negative Thrive Assessment: Date of Thrive Assessment Date Thrive assessed 12/25/24 12/25/24 09:50 Currently or been in a relationship where the following occur: No concerns reported Const General: no acute distress and alert HENMT Ears: TM's normal bilaterally and EAC's normal Throat: Yes posterior oropharynx normal and Yes tonsils normal (no TP congestion) Neck Neck: Yes supple and No lymphadenopathy Thyroid: Thyroid normal Resp Auscultation: clear to auscultation bilaterally, no rales and no wheezes Cardio Rate: regular rate Rhythm: regular rhythm Heart sounds: no murmurs GI Palpation (GI): Soft to palpation and nontender Auscultation: normal bowel sounds Back/Spine/Pelvis Thoracic/Lumbar Spine: No lumbar spinal tenderness Skin Rashes: no rashes Extrem Other: (+) prominent areas of varicose veins over both lower extremities General: Yes no clubbing, cyanosis or edema Results Reviewed Results Reviewed: Laboratory Tests 08/21/24 12/23/24 12/23/24 08:38 08:29 08:36 WBC 6.3 Hgb 13.5 Hct 42.8 Plt Count 267 Sodium 140 Potassium 4.2 Creatinine 0.79 Estimated GFR > 60 Fasting Glucose 86 Hemoglobin A1c % 6.2 H Calcium 8.7 D AST 44 H ALT 30 Triglycerides 129 Cholesterol 219 H LDL Cholesterol, Calc 158 H HDL Cholesterol 36 L 25-OH Vitamin D Total 20.6 L TSH 2.00 Free T4 1.33 Ur Specific [place] 1.020 Urine Protein Negative Urine Glucose (UA) Negative Urine Blood Small (1+) H Urine Nitrite Negative Ur Leukocyte Esterase Moderate (2+) H Microalb/Creat Ratio 42.0 H Coding Level of Care Code Est Pt Level 4 (18004) Complex EM visit Add On G2211 Diagnoses Pure hypercholesterolemia E78.00 Acquired hypothyroidism E03.9 Elevated LFTs R79.89 Impaired fasting glucose R73.01 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 M85.80 Vitamin D deficiency E55.9 Varicose veins of bilateral lower extremities with pain I83.813 Obesity (BMI 30-39.9) E66.9 Additional Codes PHQ-9 - 94275 - PHQ-9 Billing: Yes ([id number]) Assessment & Plan Assessment & Plan (1) Pure hypercholesterolemia: Code(s): E78.00 - Pure hypercholesterolemia, unspecified Category: Medical Plan: Results of her labs done a few days ago reviewed and discussed with patient - she is advised that her cholesterol levels have increased significantly from previous, especially her LDL cholesterol Reinforced low cholesterol diet Will increase her Atorvastatin now to 20 mg QD Will recheck her labs and fasting lipids in 4 months for follow up (2) Acquired hypothyroidism: Code(s): E03.9 - Hypothyroidism, unspecified Category: Medical Plan: Her TFTs are now normal on her recent labs Continue Levothyroxine 137 mcg QD Will recheck her TFTs in 4 months for follow up (3) Elevated LFTs: Code(s): R79.89 - Other specified abnormal findings of blood chemistry Category: Medical Plan: Patient's serum AST is still slightly elevated but her ALT remains normal These are again most likely due to a combination of her weight (hepatosteatosis) and her Atorvastatin Rx Will continue to monitor her LFTs regularly (4) Impaired fasting glucose: Code(s): R73.01 - Impaired fasting glucose Category: Medical Plan: Her HgbA1c was at 6.2% on her recent labs (she was at 6.3% a few months ago) Her FBS remained normal at 86 mg/dl on her recent labs Reinforced low calorie/low carb diet; exercise as tolerated Will continue to monitor her blood sugar and glycemic control closely (5) Ductal carcinoma in situ of left breast: Code(s): D05.12 - Intraductal carcinoma in situ of left breast Category: Medical Plan: S/P surgical excision on 03/14/2022 (Dr. Pittman); she was also positive for both estrogen and progesterone receptors and will need antiestrogen therapy after completing her treatments S/P radiation Tx (completed in 05/2022) Continue Letrozole 2.5 mg QD Follow up with oncology as scheduled for continuing surveillance (6) Osteopenia due to cancer therapy: Code(s): M85.80 - Other specified disorders of bone density and structure, unspecified site Category: Medical Plan: Continue Prolia 60 mg SQ every 6 months Patient is again encouraged to continue to stay active and exercise regularly and to continue on her daily oral Calcium and Vitamin D supplements (7) Vitamin D deficiency: Code(s): E55.9 - Vitamin D deficiency, unspecified Category: Medical Plan: Continue Vitamin D3 2000 units QD (8) Varicose veins of bilateral lower extremities with pain: Code(s): I83.813 - Varicose veins of bilateral lower extremities with pain Category: Medical Plan: S/P RFA on her left lower extremity, with significant improvement of her symptoms Follow up with vascular surgery as scheduled or as needed (9) Obesity (BMI 30-39.9): Code(s): E66.9 - Obesity, unspecified Category: Medical Plan: Reinforced diet/exercise as tolerated/lose weight Plan Follow up in 4 months Orders: Orders Comprehensive [place]. Panel Fast 4 Months E78.00 - Pure hypercholesterolemia, unspecified Lipid Panel 4 Months E78.00 - Pure hypercholesterolemia, unspecified Free T4 (Free Thyroxine) 4 Months E03.9 - Hypothyroidism, unspecified Thyroid Stimulating Hormone 4 Months E03.9 - Hypothyroidism, unspecified Vitamin D 25-OH Total 4 Months E55.9 - Vitamin D deficiency, unspecified Hemoglobin A1c 4 Months R73.01 - Impaired fasting glucose Complete Blood Count Auto Diff 4 Months D64.9 - Anemia, unspecified UA CC w/rflx Micro + Cult 4 Months R30.0 - Dysuria Medications: Changed From atorvastatin 10 mg PO BEDTIME 90 days 90 tabs 1RF E78.00 - Pure hypercholesterolemia, unspecified To atorvastatin 20 mg PO BEDTIME 90 tabs 1RF 90 days E78.00 - Pure hypercholesterolemia, unspecified Refilled cholecalciferol (vitamin D3) 50 mcg PO DAILY 90 caps 1RF 90 days
== END 2024-12-25 10:45 | disposition home or self-care (01) ==
LOC: HO.HMCH 09:42
PROVIDERS: PCP Internal Medicine; Visit Provider Internal Medicine
DX: E78.00 Pure hypercholesterolemia, unspecified (principal); E03.9 Hypothyroidism, unspecified; E66.9 Obesity, unspecified; Z68.41 Body mass index [BMI] 40.0-44.9, adult; R79.89 Other specified abnormal findings of blood chemistry; R73.01 Impaired fasting glucose; D05.12 Intraductal carcinoma in situ of left breast; M85.80 Other specified disorders of bone density and structure, unspecified site; E55.9 Vitamin D deficiency, unspecified; I83.813 Varicose veins of bilateral lower extremities with pain

== ENCOUNTER → 2024-12-25 09:41 | Outpatient (BNVA) | payer OTHER, SELFPAY | PROVIDERS: PCP Internal Medicine; Visit Provider Internal Medicine | DX: I83.813 Varicose veins of bilateral lower extremities with pain (principal); E78.00 Pure hypercholesterolemia, unspecified; E03.9 Hypothyroidism, unspecified; R79.89 Other specified abnormal findings of blood chemistry; R73.01 Impaired fasting glucose; D05.12 Intraductal carcinoma in situ of left breast; M85.80 Other specified disorders of bone density and structure, unspecified site; E55.9 Vitamin D deficiency, unspecified; E66.9 Obesity, unspecified; Z68.41 Body mass index [BMI] 40.0-44.9, adult | CPT/HCPCS: 96127 ==